=== PATIENT | female | born 1980 | race Caucasian/White ===

== ENCOUNTER 2021-11-01 12:04 | Outpatient (CLI) | payer OTHER, SELFPAY ==
[2021-11-01 19:35] LABS: Chlamydia DNA Amplified* NOT DETECTED (No Detected); GC DNA Amplified* NOT DETECTED (No Detected)
== END 2021-11-01 12:05 | disposition home or self-care (01) ==
LOC: NFLDREF 12:05
PROVIDERS: PCP Physician Assistant Medical; Visit Provider Physician Assistant
DX: N89.8 Other specified noninflammatory disorders of vagina (principal)
CPT/HCPCS: 87491; 87591

== ENCOUNTER 2022-01-03 11:37 | Outpatient (CLI) | payer OTHER, SELFPAY | END 2022-01-03 11:38 | disposition home or self-care (01) | PROVIDERS: PCP Physician Assistant Medical; Visit Provider Registered Nurse | DX: N89.8 Other specified noninflammatory disorders of vagina (principal) | CPT/HCPCS: 87102; 87106 ==

== ENCOUNTER 2022-02-26 16:01 | Outpatient (CLI) | payer OTHER, SELFPAY ==
--- NOTE | 2022-02-26 16:15 | CRLHL7_ITS ---
For Patients: As a result of the Century Cures Act, medical imaging exams and procedure reports are released immediately into your electronic medical record. You may view this report before your referring provider. If you have questions, please contact your health care provider. BILATERAL SCREENING MAMMOGRAM WITH COMPUTER-AIDED DETECTION AND TOMOSYNTHESIS TECHNIQUE: CC and MLO views were obtained. These mammographic images have been obtained using full-field digital technique. These mammographic images were interpreted with the benefit of computer-aided detection. Breast Tomosynthesis was used in this interpretation. COMPARISON FILM: 01/31/21. FINDINGS: There are scattered areas of fibroglandular density IMPRESSION: There is no radiographic evidence for malignancy. ASSESSMENT: BI-RADS Category 2: Benign RECOMMENDATION: Routine screening mammogram in 1 year. A lay language report of this examination will be provided to the patient. Oscar Schuler M.D. Diagnostic Radiologist [email or web address] Transcribed: 7:41 p.m. GORODN/Dictated by: Oscar Schuler MD @ 02/27/2022 10:11:00 AM (Electronically Signed)
== END 2022-02-26 16:02 | disposition home or self-care (01) ==
LOC: MAMMO 16:02
PROVIDERS: PCP Physician Assistant Medical; Visit Provider Obstetrics & Gynecology
DX: Z12.31 Encounter for screening mammogram for malignant neoplasm of breast (principal)
CPT/HCPCS: 77063; 77067

== ENCOUNTER 2022-04-16 15:27 | Outpatient (CLI) | payer OTHER, SELFPAY ==
--- NOTE | 2022-04-16 15:30 | MR_ITS ---
Patient: RESHMA DELEON Facility:?[facility] Patient ID:?[id number] Site Patient ID:?[id number]. Site :?1980 Study:?MRI-Head W/ and W/O Cont W/WO 15 CC DOTAREM IAC'S-04/16/2022 5:26:35 PM Ordering Physician:?Angelica Aragon Final Report: DATE: 04/16/2022. CLINICAL HISTORY: Vertigo. TECHNIQUE: Multi-sequence, multiplanar MRI examination of the brain was performed. In addition, multi-sequence, multiplanar examination, including high-resolution imaging, through the IAC`s was performed. Contrast: 15mL of Dotarem was administered intravenously. COMPARISON: None available. FINDINGS: There is no restricted diffusion in the brain to indicate the presence of acute ischemia. No extra-axial collection, mass effect, or midline shift. There are several scattered foci of T2 prolongation within the white matter of both hemispheres, most notably within the frontal lobes, nonspecific. Parenchymal volume is within normal limits for patient age. Ventricles are normal in size and morphology. There is no pathologic intracranial enhancement. The posterior fossa is unremarkable. No evidence of pathologic mass within the cerebellopontine angle cisterns. The internal auditory canals are within normal limits and without evidence of pathologic enhancement. The inner ear structures are within normal limits. The orbits are unremarkable. Mild mucosal thickening of the ethmoid air cells. The mastoid air cells are clear. The calvarium is unremarkable. IMPRESSION: 1. No acute intracranial abnormality. 2. No evidence of pathology involving the cerebellopontine angle cisterns, internal auditory canals, or inner ear structures. 3. Several scattered T2 hyperintense foci within the white matter of both hemispheres, most notably within the frontal lobes. This is nonspecific but may reflect sequela of migraine headaches versus early onset mild chronic small vessel ischemia. Dictated by Ariel Edge MD @ 04/16/2022 6:04:52 PM Signed by:?Ariel Edge MD @04/16/2022 6:04:52 PM (Electronic Signature)
== END 2022-04-16 15:28 | disposition home or self-care (01) ==
LOC: MRI 15:28
PROVIDERS: PCP Physician Assistant Medical; Visit Provider Otolaryngology
DX: R42 Dizziness and giddiness (principal)
CPT/HCPCS: 70553; A9575

== ENCOUNTER 2022-04-30 17:24 | Emergency (ER) | payer OTHER, SELFPAY ==
[2022-04-30] VITALS (9 sets, daily range): BP systolic 133–141; BP diastolic 80–88; PULSE 68–88; RESP 18–20; TEMP 36.1–36.3; O2SAT 95–97; BMI 31.7
--- NOTE | 2022-04-30 18:11 | CRLHL7_ITS ---
For Patients: As a result of the Century Cures Act, medical imaging exams and procedure reports are released immediately into your electronic medical record. You may view this report before your referring provider. If you have questions, please contact your health care provider. INDICATION: right sided chest pain TECHNIQUE: Chest 2 views. COMPARISON: 10/02/20 FINDINGS: Cardiovascular and mediastinum: Heart size and vasculature are normal in caliber and appearance. Mediastinum is within normal limits. Lungs and pleural spaces: Lungs are clear. No sign of infiltrate or mass. No sign of pleural effusion. No pneumothorax. Bones and soft tissues: No significant findings. IMPRESSION: Unremarkable chest. Dictated by: Oscar Chance MD @ 04/30/2022 19:30:27 (Electronically Signed)
--- NOTE | 2022-04-30 18:11 | CRLHL7_ITS ---
For Patients: As a result of the Century Cures Act, medical imaging exams and procedure reports are released immediately into your electronic medical record. You may view this report before your referring provider. If you have questions, please contact your health care provider. Indication: Upper right quadrant abdominal pain. Technique: Abdomen 4 view. Comparison: None. Findings/Impression: Bowel: Nonobstructive bowel gas pattern. Normal stool burden. Soft tissues: No evidence of free air. Cholecystectomy clips. Bones: Lumbar fusion hardware. No acute findings. Enthesopathic changes about the right greater trochanter. Dictated by Manjit Hammond MD @ 04/30/2022 7:41:25 PM (Electronically Signed)
--- NOTE | 2022-04-30 18:40 | ED.ABDPAIN ---
HPI - Abdominal Pain General Date Seen: 04/30/22 Chief Complaint: Abdominal Pain Stated Complaint: Abdominal Pain, upper right quad Time Seen by Provider: 04/30/22 17:26 Source: patient Mode of arrival: ambulatory Limitations: no limitations History of Present Illness HPI narrative: Patient is a 41-year-old female who presents here with a 2-3 day history of right upper quadrant pain, worse when she takes a deep breath in, coughs twists or turns, or pushes over her lower right chest region. She says that it came on while she was really doing nothing, but definitely worse when she is up moving around. She does not know endorse any coughing, shortness of breath, hemoptysis, previous history of PEs or blood caught it is. She actually was going to go to on oral surgery appointment/dentistry and then canceled that went to an urgent care before this and they said they could help her in she came here. She has a history of a previous cholecystectomy and a Ronni-en-Y gastric bypass. Recent workup at [facility] for an abnormal stress test showed really clear coronary arteries with only 25% stenosis. MD elicited complaint: abdominal pain and flank pain Pertinent past history: none Onset (ago): day(s) Pain Consistency: constant and intermittent Location: RUQ Severity: moderate Radiation: none Migration to: no migration Exacerbating factors: nothing Relieving factors: nothing Associated symptoms: denies other symptoms Related Data Patient : No Home Medications Medication Instructions Recorded Confirmed acetaminophen 325 mg tablet mg PO .Once as needed PRN 11/01/21 03/13/22 aspirin 81 mg tablet,delayed mg PO 11/01/21 03/13/22 release diltiazem HCl 180 mg mg PO DAILY 11/01/21 03/13/22 capsule,extended release 24 hr ondansetron HCl 4 mg tablet mg PO PRN 11/01/21 03/13/22 oxycodone 10 mg tablet mg PO PRN 11/01/21 03/13/22 sennosides 8.6 mg tablet 8.6 mg PO 11/01/21 03/13/22 valacyclovir 500 mg tablet mg PO BID 11/01/21 03/13/22 Previous Rx's Medication Instructions Recorded pantoprazole 40 mg tablet,delayed 40 mg PO QAM #90 tabs 11/29/21 release fluoxetine 40 mg capsule See Rx Instructions .Route 02/21/22 .COMPLEX #90 caps hydroxyzine pamoate 25 mg capsule See Rx Instructions .Route 02/27/22 .COMPLEX #90 caps fluticasone propionate 50 2 spray intranasal QDAY 30 days 03/13/22 mcg/actuation nasal #16 grams spray,suspension bupropion HCl 150 mg 24 hr tablet, See Rx Instructions .Route 04/24/22 extended release .COMPLEX #90 tabs Allergies Allergy/AdvReac Type Severity Reaction Status Date / Time albuterol Allergy Severe Anaphylaxis Verified 03/13/22 14:12 tramadol Allergy Intermediate Rash Verified 03/13/22 14:12 Review of Systems Status of ROS Reports: 10 or more systems reviewed and unremarkable except as noted in History and below PFSH PFS Medical History Family history of breast cancer History of abnormal cervical Papanicolaou smear History of anemia History of atrial flutter History of chlamydia infection History of genital warts History of herniated intervertebral disc History of herpes genitalis History of hypertension History of peptic ulcer Surgical History H/O microdiscectomy History of carpal tunnel release (2007) History of cholecystectomy History of esophagogastroduodenoscopy (EGD) History of loop electrical excision procedure (LEEP) (1998) History of microdiscectomy (2005) History of Ronni-en-Y gastric bypass (2003) History of spinal fusion (01/15/11) History of spinal surgery (09/21/09) History of tonsillectomy (2010) Status post dilation and curettage (04/09/21) Status post excision of lipoma (2017) Family History Mother Colon cancer Coronary artery disease Family/Other Colon cancer Paternal Grandfather Coronary artery disease Other Breast cancer Social History Narrative: does not use illicit drugs history of abuse lactose intolerance nonsmoker Smoking Status: Never smoker Do you use any of these nicotine containing products: None Second hand tobacco smoke exposure: No How often do you have a drink containing alcohol: never AUDIT-C Alcohol total score: 0 Non-prescribed substance use: marijuana (any form) Non-prescribed substance use details: medical cannibus service: No Exam Narrative: Exam Narrative: Patient is seen in room 1, she presents in no apparent distress speaking to me normally, but holding her right-sided chest region. And right upper quadrant asking me what is under there. Pupils equal round reactive to light there is no scleral icterus redness TMs are normal oropharynx normal neck is supple chest is clear bilaterally, with maybe a little bit of splinting on the right side when she takes a deep breath in heart sounds are normal abdomen is soft, even with deep palpation she seems to localize her pain over the right side of her chest. Bowel sounds are normal there is no organomegaly scars from previous Ronni-en-Y are noted. No CVA pain Const: Vital Signs, click to edit/add: Vital Signs - 24 hr 04/30/22 17:41 04/30/22 18:11 04/30/22 18:07 Temperature 97.4 F L 97 F L Pulse Rate 78 Pulse Rate [Pulse Oximeter] 79 Respiratory Rate 18 20 Blood Pressure 141/88 H Blood Pressure [Ri ght Upper Arm] 133/80 141/88 H Pulse Oximetry 97 97 97 Oxygen Delivery Me thod Room Air Room Air 04/30/22 18:08 04/30/22 18:15 04/30/22 18:30 Temperature Pulse Rate 83 88 72 Pulse Rate [Pulse Oximeter] Respiratory Rate Blood Pressure Blood Pressure [Ri ght Upper Arm] Pulse Oximetry 95 97 96 Oxygen Delivery Me thod 04/30/22 18:38 04/30/22 18:45 04/30/22 19:00 Temperature Pulse Rate 69 68 68 Pulse Rate [Pulse Oximeter] Respiratory Rate Blood Pressure 138/83 Blood Pressure [Ri ght Upper Arm] Pulse Oximetry 97 95 97 Oxygen Delivery Me thod Documenting provider has reviewed patient's vital signs: yes Course Course Hospital Course: Explained to the patient that her workup showed no evidence of any acute problems, her D-dimer is normal her laboratory tests were normal, there is no significant liver elevation, or pancreatic enzyme elevation, her x-ray showed nonspecific gas pattern along with the chest x-ray which is normal, she thought that I was a little upset with her initially, explained to her that I was not upset, I did offer her pain medication which she accepted, I would recommend that she follow up with her primary care physician, for further assessment, I do not think this is cardiac ischemia, as she has had recent angiogram that was normal, I do not think that with a normal D-dimer, and absence of tachycardia, that this is likely a blood clot, Vital Signs Vital signs: Initial Vital Signs Temperature 97.4 F L 04/30/22 17:41 Temperature Source Temporal Artery Scan 04/30/22 17:41 Pulse Rate 79 04/30/22 17:41 Respiratory Rate 18 04/30/22 17:41 Blood Pressure 133/80 04/30/22 17:41 Blood Pressure Mean 97 04/30/22 17:41 Blood Pressure Position Sitting 04/30/22 17:41 Pulse Oximetry 97 04/30/22 17:41 Oxygen Delivery Method 04/30/22 17:41 Vital Signs Temperature 97.4 F L 04/30/22 17:41 Pulse Rate 79 04/30/22 17:41 Respiratory Rate 18 04/30/22 17:41 Blood Pressure 133/80 04/30/22 17:41 Pulse Oximetry 97 04/30/22 17:41 Oxygen Delivery Method 04/30/22 17:41 Temperature 97 F L 04/30/22 18:11 Pulse Rate 68 04/30/22 19:00 Respiratory Rate 20 04/30/22 18:11 Blood Pressure 138/83 04/30/22 18:38 Pulse Oximetry 97 04/30/22 19:00 Oxygen Delivery Method 04/30/22 18:11 MDM - Abdominal Pain MDM Narrative Medical decision making narrative: During the evaluation of this patient I considered multiple differential diagnosis is. The life-threatening differential diagnosis include coronary disease/NH, pulmonary embolism, pneumothorax, pneumonia, and aortic dissection. Other differential diagnosis included but were not limited to pericarditis, myocarditis, chest wall pain, GERD, esophageal rupture, rib fracture contusion, pleurisy, as well as other etiologies. Medical Records Attestation: I reviewed the patient's medical records. Lab Data Attestation: I reviewed the patient's lab results. Labs: Lab Results 04/30/22 04/30/22 04/30/22 Range/Units 18:40 18:40 18:40 WBC 6.63 (4.50-11.00) K/uL RBC 4.00 (4.00-5.20) m/uL Hgb 11.5 L (12.0-16.0) gm/dL Hct 34.6 (33.0-51.0) % MCV 87 (80-100) fL MCH 29 (26-34) pg MCHC 33 (32-36) gm/dL RDW Coeff of Dia 15.4 (11.5-15.5) % Plt Count 223 (140-440) K/uL Neut % (Auto) 70.2 (42.0-72.0) % Lymph % (Auto) 20.5 (20-44) % [place] % (Auto) 7.4 (0.0-11.0) % Eos % (Auto) 1.1 (0.0-7.0) % Baso % (Auto) 0.6 (0.0-3.0) % Neut # (Auto) 4.66 (1.7-7.0) K/uL Lymph # (Auto) 1.36 (0.90-2.90) K/uL [place] # (Auto) 0.50 (0.00-0.90) K/UL Eos # (Auto) 0.07 (0.00-0.50) K/uL Baso # (Auto) 0.04 (0.00-0.30) K/uL D-Dimer Quant (PE/DVT) < 0.27 (0.00-0.50) ug/ml Sodium 140 (135-149) mmol/L Potassium 4.1 (3.6-5.1) mmol/L Chloride 110 (96-114) mmol/L Carbon Dioxide 26 (20-32) mmol/L BUN 12 (5-24) mg/dL Creatinine 0.7 (0.5-1.5) mg/dL Estimated Creat Clear 124.62 Estimated GFR 111 ml/min Glucose 87 (60-115) mg/dL Calcium 8.7 (8.4-10.6) mg/dL Total Bilirubin 0.3 (0.1-1.5) mg/dL Direct Bilirubin 0.3 (0.0-0.5) mg/dL AST 35 (12-35) U/L ALT 36 H (4-35) U/L Alkaline Phosphatase 82 (40-150) U/L C-Reactive Protein < 0.5 L (0.5-1.0) mg/dL Total Protein 6.7 (6.0-8.3) g/dL Albumin 4.2 (3.3-5.0) g/dL Amylase 47 (18-89) U/L Lipase 105 (23-300) U/L Urine Color (Yellow) Urine Appearance (Clear) Urine pH (5.0-8.5) Ur Specific [place] (1.000-1.030) Urine Protein (Negative) Urine Glucose (UA) (Negative) Urine Ketones (Negative) Urine Blood (Negative) Urine Nitrite (Negative) Urine Bilirubin (Negative) Urine Urobilinogen (0.2-1.0) Ur Leukocyte Esterase (Negative) Urine RBC (0-2) Urine WBC (0-5) Ur Squamous Epith Cells (None-Few) Urine Bacteria (None) 04/30/22 Range/Units Unknown WBC (4.50-11.00) K/uL RBC (4.00-5.20) m/uL Hgb (12.0-16.0) gm/dL Hct (33.0-51.0) % MCV (80-100) fL MCH (26-34) pg MCHC (32-36) gm/dL RDW Coeff of Dia (11.5-15.5) % Plt Count (140-440) K/uL Neut % (Auto) (42.0-72.0) % Lymph % (Auto) (20-44) % [place] % (Auto) (0.0-11.0) % Eos % (Auto) (0.0-7.0) % Baso % (Auto) (0.0-3.0) % Neut # (Auto) (1.7-7.0) K/uL Lymph # (Auto) (0.90-2.90) K/uL [place] # (Auto) (0.00-0.90) K/UL Eos # (Auto) (0.00-0.50) K/uL Baso # (Auto) (0.00-0.30) K/uL D-Dimer Quant (PE/DVT) (0.00-0.50) ug/ml Sodium (135-149) mmol/L Potassium (3.6-5.1) mmol/L Chloride (96-114) mmol/L Carbon Dioxide (20-32) mmol/L BUN (5-24) mg/dL Creatinine (0.5-1.5) mg/dL Estimated Creat Clear Estimated GFR ml/min Glucose (60-115) mg/dL Calcium (8.4-10.6) mg/dL Total Bilirubin (0.1-1.5) mg/dL Direct Bilirubin (0.0-0.5) mg/dL AST (12-35) U/L ALT (4-35) U/L Alkaline Phosphatase (40-150) U/L C-Reactive Protein (0.5-1.0) mg/dL Total Protein (6.0-8.3) g/dL Albumin (3.3-5.0) g/dL Amylase (18-89) U/L Lipase (23-300) U/L Urine Color Yellow (Yellow) Urine Appearance Clear (Clear) Urine pH 7.0 (5.0-8.5) Ur Specific [place] 1.010 (1.000-1.030) Urine Protein Negative (Negative) Urine Glucose (UA) Negative (Negative) Urine Ketones Negative (Negative) Urine Blood Negative (Negative) Urine Nitrite Negative (Negative) Urine Bilirubin Negative (Negative) Urine Urobilinogen 0.2 (0.2-1.0) Ur Leukocyte Esterase Negative (Negative) Urine RBC 0-2 (0-2) Urine WBC 0-2 (0-5) Ur Squamous Epith Cells None (None-Few) Urine Bacteria None (None) Imaging Data Chest x-ray: Radiologist's impression: Patient: [facility] Facility:?[facility] Patient ID:?[id number] Site Patient ID:?[id number]. Site :?1980 Study:?XRay Abdomen -04/30/2022 7:18:45 PM Ordering Physician:?Ivania Porter Final Report: Indication: Upper right quadrant abdominal pain. Technique: Abdomen 4 view. Comparison: None. Findings/Impression: Bowel: Nonobstructive bowel gas pattern. Normal stool burden. Soft tissues: No evidence of free air. Cholecystectomy clips. Bones: Lumbar fusion hardware. No acute findings. Enthesopathic changes about the right greater trochanter. Dictated by Manjit Hammond MD @ 04/30/2022 7:41:25 PM (Electronic Signature) Patient: RESHMA DELEON Facility:?[facility] Patient ID:?[id number] Site Patient ID:?[id number]. Site :?1980 Study:?XRay Chest -04/30/2022 7:19:35 PM Ordering Physician:Jem Porter Final Report: INDICATION: right sided chest pain TECHNIQUE: Chest 2 views. COMPARISON: 10/02/20 FINDINGS: Cardiovascular and mediastinum: Heart size and vasculature are normal in caliber and appearance. Mediastinum is within normal limits. Lungs and pleural spaces: Lungs are clear. No sign of infiltrate or mass. No sign of pleural effusion. No pneumothorax. Bones and soft tissues: No significant findings. IMPRESSION: Unremarkable chest. Dictated by: Oscar Chance MD @ 04/30/2022 19:30:27 (Electronic Signature) Discharge Plan Discharge Clinical Impression: Chest pain Patient Disposition: Home, Self-Care Condition: Stable Instructions: Chest Pain (DC) Additional Instructions: As I discussed with you all your laboratory tests were all normal, chest x-ray, blood test, urine, that all looked within normal limits, the test for blood clot was also normal. I would recommend that she follow up with her regular physician, and I would treat this as a muscle strain. Sometimes the muscles involved with the chest can really be an issue for some time as we cannot really stop using these as we have to breathe 15 times a minute. Increasing chest pain shortness of breath passing out or other issues I would recommend to come back and be seen, or seen by your regular physician. Continue her other medications as directed. Prescriptions: No Action ondansetron HCl 4 mg tablet PO PRN valacyclovir 500 mg tablet PO BID sennosides 8.6 mg tablet 8.6 mg PO acetaminophen 325 mg tablet PO .Once as needed PRN Rx Instructions: NO MORE THAN 4000 MG/DAY diltiazem HCl 180 mg capsule,extended release 24hr PO DAILY aspirin 81 mg tablet,delayed release (DR/EC) PO oxycodone 10 mg tablet PO PRN fluticasone propionate 50 mcg/actuation spray,suspension 2 spray intranasal QDAY 30 Days Qty: 16 11RF Rx Instructions: administer into each nostril pantoprazole 40 mg tablet,delayed release (DR/EC) 40 mg PO QAM Qty: 90 3RF fluoxetine 40 mg capsule See Rx Instructions .ROUTE .COMPLEX Qty: 90 0RF Dose Instruction: TAKE ONE CAPSULE BY MOUTH EVERY DAY (DUE FOR FOLLOWUP FOR REFILLS) Rx Instructions: TAKE ONE CAPSULE BY MOUTH EVERY DAY (DUE FOR FOLLOWUP FOR REFILLS) hydroxyzine pamoate 25 mg capsule See Rx Instructions .ROUTE .COMPLEX Qty: 90 0RF Dose Instruction: TAKE ONE CAPSULE BY MOUTH EVERY 6 TO 8 HOURS Rx Instructions: TAKE ONE CAPSULE BY MOUTH EVERY 6 TO 8 HOURS bupropion HCl 150 mg tablet extended release 24 hr See Rx Instructions .ROUTE .COMPLEX Qty: 90 1RF Dose Instruction: TAKE 1 TABLET BY MOUTH DAILY Rx Instructions: TAKE 1 TABLET BY MOUTH DAILY Follow Up/Referrals: Blake Dalal PA-C [Primary Care Provider] - Stand Alone Forms: [employer] Info Instructions
[2022-04-30] MEDS: 0.9 % SODIUM CHLORIDE 1000 ml 1,000 ML IV (18:43)
[2022-04-30 18:47] LABS: Basophils Absolute Auto 0.04 K/uL (0.00-0.30); Basophils Percent Auto 0.6 % (0.0-3.0); Eosinophils Absolute Auto 0.07 K/uL (0.00-0.50); Eosinophils Percent Auto 1.1 % (0.0-7.0); Hematocrit 34.6 % (33.0-51.0); Hemoglobin* 11.5 gm/dL (12.0-16.0); Immature Granulocytes Abs Auto 0.01 K/uL (0.00-0.30); Immature Granulocytes Pct Auto 0.2 %; Lymphocytes Absolute Auto 1.36 K/uL (0.90-2.90); Lymphocytes Percent Auto 20.5 % (20-44); Mean Corpuscular HGB Conc 33 gm/dL (32-36); Mean Corpuscular Hemoglobin 29 pg (26-34); Mean Corpuscular Volume 87 fL (80-100); Monocytes Percent Auto 7.4 % (0.0-11.0); Neutrophils Absolute Auto 4.66 K/uL (1.7-7.0); Neutrophils Percent Auto 70.2 % (42.0-72.0); Platelet Count* 223 K/uL (140-440); RDW Coefficient of Variation % 15.4 % (11.5-15.5); White Blood Count* 6.63 K/uL (4.50-11.00)
[2022-04-30 18:53] LABS: Slide Review Reflex No
[2022-04-30 19:00] LABS: Albumin* 4.2 g/dL (3.3-5.0); Chloride* 110 mmol/L (96-114)
[2022-04-30 19:01] LABS: Potassium* 4.1 mmol/L (3.6-5.1); Sodium* 140 mmol/L (135-149)
[2022-04-30 19:03] LABS: Amylase* 47 U/L (18-89); Bilirubin Direct* 0.3 mg/dL (0.0-0.5); Bilirubin Total* 0.3 mg/dL (0.1-1.5); Carbon Dioxide* 26 mmol/L (20-32); Creatinine* 0.7 mg/dL (0.5-1.5); Est. Creatinine Clearance* 124.62; Estimated Glomerular Filt Rate 111 ml/min; Total Protein* 6.7 g/dL (6.0-8.3)
[2022-04-30 19:04] LABS: Alanine Aminotransferase* 36 U/L (4-35); Alkaline Phosphatase* 82 U/L (40-150); Aspartate Amino Transferase* 35 U/L (12-35); Blood Urea Nitrogen* 12 mg/dL (5-24); Calcium* 8.7 mg/dL (8.4-10.6); Glucose* 87 mg/dL (60-115); Lipase* 105 U/L (23-300)
[2022-04-30 19:06] LABS: C Reactive Protein* < 0.5 mg/dL (0.5-1.0)
[2022-04-30 19:07] LABS: D Dimer Quantitative* < 0.27 ug/ml (0.00-0.50)
[2022-04-30 19:43] LABS: Appearance Urine Clear (Clear); Bilirubin Urine Negative (Negative); Blood Urine Negative (Negative); Color Urine Yellow (Yellow); Glucose Urine Negative (Negative); Ketones Urine Negative (Negative); Leukocyte Esterase Urine Negative (Negative); Nitrite Urine Negative (Negative); Protein Urine Negative (Negative); Urobilinogen Urine 0.2 (0.2-1.0)
[2022-04-30 19:53] LABS: RBC Urine 0-2 (0-2); WBC Urine 0-2 (0-5)
== END 2022-04-30 20:10 | disposition home or self-care (01) ==
PROVIDERS: Emergency Provider Family Medicine; PCP Physician Assistant Medical
DX: R07.9 Chest pain, unspecified (principal)
CPT/HCPCS: 36415; 71046; 74019; 80048; 80076; 81001; 82150; 83690; 85025; 85379; 86140; 99284; J7030

== ENCOUNTER 2022-07-15 14:04 | Outpatient (CLI) | payer OTHER, SELFPAY ==
[2022-07-15 22:06] LABS: Basophils Absolute Auto 0.04 K/uL (0.00-0.30); Basophils Percent Auto 0.6 % (0.0-3.0); Eosinophils Absolute Auto 0.09 K/uL (0.00-0.50); Eosinophils Percent Auto 1.4 % (0.0-7.0); Hematocrit 38.4 % (33.0-51.0); Hemoglobin* 12.4 gm/dL (12.0-16.0); Lymphocytes Absolute Auto 1.35 K/uL (0.90-2.90); Lymphocytes Percent Auto 20.8 % (20-44); Mean Corpuscular HGB Conc 32 gm/dL (32-36); Mean Corpuscular Hemoglobin 28 pg (26-34); Mean Corpuscular Volume 86 fL (80-100); Monocytes Percent Auto 5.4 % (0.0-11.0); Neutrophils Absolute Auto 4.66 K/uL (1.7-7.0); Neutrophils Percent Auto 71.8 % (42.0-72.0); Platelet Count* 193 K/uL (140-440); RDW Coefficient of Variation % 15.6 % (11.5-15.5); Red Blood Count 4.46 m/uL (4.00-5.20); White Blood Count* 6.49 K/uL (4.50-11.00)
[2022-07-15 22:09] LABS: Slide Review Reflex No
[2022-07-15 22:17] LABS: Albumin* 3.9 g/dL (3.3-5.0); Chloride* 106 mmol/L (96-114)
[2022-07-15 22:18] LABS: Potassium* 4.1 mmol/L (3.6-5.1); Sodium* 138 mmol/L (135-149)
[2022-07-15 22:20] LABS: Creatinine* 0.7 mg/dL (0.5-1.5); Estimated Glomerular Filt Rate 111 ml/min
[2022-07-15 22:21] LABS: Alanine Aminotransferase* 76 U/L (4-35); Alkaline Phosphatase* 101 U/L (40-150); Aspartate Amino Transferase* 56 U/L (12-35); Bilirubin Total* 0.4 mg/dL (0.1-1.5); Blood Urea Nitrogen* 12 mg/dL (5-24); Calcium* 9.1 mg/dL (8.4-10.6); Carbon Dioxide* 27 mmol/L (20-32); Glucose* 93 mg/dL (60-115); Lipase* 362 U/L (23-300); Total Protein* 6.6 g/dL (6.0-8.3)
[2022-07-15 22:24] LABS: C Reactive Protein* 1.2 mg/dL (0.5-1.0)
[2022-07-15 22:38] LABS: Vitamin D 25 Hydroxy* 30 ng/mL (30-80)
[2022-07-15 22:52] LABS: TSH With Reflex to FT4* 0.696 uIU/mL (0.270-4.200)
[2022-07-15 22:54] LABS: Ferritin* 17.5 ng/mL (6.24-137.0)
[2022-07-15 23:05] LABS: Vitamin B12* 841 pg/mL (243-894)
== END 2022-07-15 14:05 | disposition home or self-care (01) ==
LOC: NFLDREF 14:07
PROVIDERS: PCP Physician Assistant Medical; Visit Provider Family Medicine
DX: R53.83 Other fatigue (principal); R10.9 Unspecified abdominal pain; Z98.84 Bariatric surgery status
CPT/HCPCS: 80053; 82306; 82607; 82728; 83690; 84443; 85025; 86140

== ENCOUNTER 2022-10-18 14:05 | Outpatient (CLI) | payer OTHER, SELFPAY | END 2022-10-18 14:06 | disposition home or self-care (01) | PROVIDERS: PCP Physician Assistant Medical; Visit Provider Family Medicine | DX: M25.50 Pain in unspecified joint (principal) | CPT/HCPCS: 86039; 86140; 86200; 86431 ==

== ENCOUNTER 2023-03-19 09:33 | Outpatient (CLI) | payer OTHER, SELFPAY | END 2023-03-19 09:34 | disposition home or self-care (01) | LOC: NFLDREF 09:34 | PROVIDERS: PCP Physician Assistant Medical; Visit Provider Internal Medicine | DX: D64.9 Anemia, unspecified (principal); Q87.40 Marfan syndrome, unspecified; G89.29 Other chronic pain | CPT/HCPCS: 81408; 81479 ==

== ENCOUNTER 2023-05-12 15:50 | Outpatient (CLI) | payer OTHER, SELFPAY | END 2023-05-12 15:51 | disposition home or self-care (01) | PROVIDERS: PCP Internal Medicine; Visit Provider Internal Medicine | DX: R10.9 Unspecified abdominal pain (principal) | CPT/HCPCS: 80053; 82728; 83540; 83550; 85045; 85610 ==

== ENCOUNTER 2023-05-19 15:32 | Outpatient (CLI) | payer OTHER, SELFPAY ==
--- NOTE | 2023-05-19 16:00 | CRLHL7_ITS ---
For Patients: As a result of the Century Cures Act, medical imaging exams and procedure reports are released immediately into your electronic medical record. You may view this report before your referring provider. If you have questions, please contact your health care provider. INDICATION: Right abdominal/flank pain. Nausea and vomiting. TECHNIQUE: Volumetric helical scanning of the abdomen and pelvis was performed with 100 cc of Isovue 370 contrast material IV. Coronal and sagittal reconstructions were obtained. COMPARISON: None. FINDINGS: There is no evidence of bowel obstruction or inflammation. A normal appendix is noted. Postop changes of gastric bypass are demonstrated. The liver is normal in size, shape and attenuation. Postop changes of cholecystectomy are noted. The bile ducts are within normal limits. The spleen, adrenal glands and pancreas are negative. The kidneys are unremarkable. No lymphadenopathy is evident. No free fluid is demonstrated. The uterus and ovaries are unremarkable. Postop changes of L4-S1 posterior fusion are noted. A spiculated 1.5 cm opacity is demonstrated in the posterior right lower lobe base. The lung bases are otherwise unremarkable. The heart size is normal. IMPRESSION: 1. Etiology of right abdominal/flank pain not evident. 2. Post gastric bypass, cholecystectomy and L4-S1 posterior fusion. 3. Spiculated 1.5 cm posterior right lower lobe base opacity. A three-month follow up chest CT is suggested. Please note that all CT scans at this facility use dose modulation, iterative reconstruction, and/or weight-based dosing when appropriate to reduce radiation dose to as low as reasonably achievable. Dictated by Zen Rayo MD @ 05/20/2023 9:29:26 AM (Electronically Signed)
== END 2023-05-19 15:33 | disposition home or self-care (01) ==
LOC: CT 15:33
PROVIDERS: PCP Internal Medicine; Visit Provider Internal Medicine
DX: R10.9 Unspecified abdominal pain (principal); R11.2 Nausea with vomiting, unspecified
CPT/HCPCS: 74177; Q9967

== ENCOUNTER 2023-06-07 21:31 | Emergency (ER) | payer OTHER, SELFPAY ==
[2023-06-07 21:37] VITALS: BP 135/79; PULSE 89; RESP 20; TEMP 37.1; O2SAT 99; BMI 29.7
--- NOTE | 2023-06-07 21:55 | ED.GENADULT ---
HPI - General Adult General Chief complaint: Head Injury/Pain Stated complaint: pressure and head pain. Previous fall last week Time Seen by Provider: 06/07/23 21:52 History of Present Illness HPI narrative: CC: Head Pain pt. fell hitting back of her head about 10 days ago. c/o lightheadedness , nausea. has mri scheduled on . needs something for pain. 42-year-old woman presenting to the emergency department with concern of headache. Underlying history of low back surgery with some degree of fusion. She has also had micro diskectomies of the cervical spine. Is managed for chronic pain and did take an oxycodone this evening which just did not help her headache at all. She has also used ice packs. She is less here for the pain but more worried about what it might represent; worried about a head bleed in particular I believe. The other day she says she was vacuuming in her son's room and suddenly tipping to her left. She describes an injury episode about 10 days ago where with standing at the door of her car slipped on the ice falling back striking the, as demonstrated, occipital insertion area of the neck on the occipital prominence of her head. There was no loss of consciousness. Since that time though has had increased headache described as a pressure particularly over the left side of her head settling around her left restorationism/periorbital area. Is having trouble sleeping. She has not been having new sinus problems. She is denying radicular symptoms beyond what is described above. No weakness. She does have some nausea and has vomited but attributes this to her underlying history of gastroparesis. Did see pain care provider and then primary care and is apparently pending an MRI of head and as described to me thoracic and cervical spine? Did have COVID with sinus symptoms around 3 weeks ago. I am able to locate x-ray that was done recently of the cervical spine. Does show some decreased lordotic curvature in osteoarthritic changes. As I am initially engaging in conversation/interview she does want to clarify that she is not here for pain meds and is bothered by the cold shoulder she feels she has received to this point. Related Data Home Medications Medication Instructions Recorded Confirmed aspirin 81 mg tablet,delayed 81 mg PO QDAY 07/15/22 06/07/23 release diltiazem HCl 180 mg 180 mg PO DAILY 07/15/22 06/07/23 capsule,extended release 24 hr ondansetron HCl 4 mg tablet 4 mg PO DAILY PRN 07/15/22 06/07/23 oxycodone 10 mg tablet 10 mg PO QID PRN 07/15/22 06/07/23 sennosides 8.6 mg tablet 8.6 mg PO QDAY 07/15/22 06/07/23 valacyclovir 500 mg tablet 500 mg PO BID PRN 07/15/22 06/07/23 Previous Rx's Medication Instructions Recorded pantoprazole 40 mg tablet,delayed 40 mg PO QAM #90 tabs 11/20/22 release cetirizine 10 mg tablet (Zyrtec) 10 mg PO BID #60 tabs 12/04/22 escitalopram oxalate 20 mg tablet 20 mg PO QDAY #90 tabs 04/29/23 trazodone 100 mg tablet 100 mg PO QHS #30 tabs 05/12/23 Allergies Allergy/AdvReac Type Severity Reaction Status Date / Time albuterol Allergy Severe Anaphylaxis Verified 06/07/23 21:40 tramadol Allergy Intermediate Rash Verified 06/07/23 21:40 Review of Systems Status of ROS: Reports: 6 or more systems reviewed and unremarkable except as noted in History and below [facility] Medical History Lung nodule ?R91.1 - Solitary pulmonary nodule (ICD-10) Abdominal pain ?R10.9 - Unspecified abdominal pain (ICD-10) Insomnia ?G47.00 - Insomnia, unspecified (ICD-10) Depression ?F32.A - Depression, unspecified (ICD-10) History of self injurious behaviour PTSD (post-traumatic stress disorder) ?F43.10 - Post-traumatic stress disorder, unspecified (ICD-10) Abnormal stress echo ?R94.39 - Abnormal result of other cardiovascular function study (ICD-10) Gastroparesis ?K31.84 - Gastroparesis (ICD-10) Atrial flutter ?I48.92 - Unspecified atrial flutter (ICD-10) 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) ?D07.1 - Carcinoma in situ of vulva (ICD-10) 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) ?R76.8 - Other specified abnormal immunological findings in serum (ICD-10) Peroneal neuropathy ?G57.30 - Lesion of lateral popliteal nerve, unspecified lower limb (ICD-10) Patent foramen ovale ?Q21.1 - Atrial septal defect (ICD-10) History of herpes genitalis ?Z86.19 - Personal history of other infectious and parasitic diseases (ICD-10) History of herniated intervertebral disc ?Z87.39 - Personal history of other diseases of the musculoskeletal system and connective tissue (ICD-10) History of genital warts ?Z86.19 - Personal history of other infectious and parasitic diseases (ICD-10) History of chlamydia infection ?Z86.19 - Personal history of other infectious and parasitic diseases (ICD-10) History of abnormal cervical Papanicolaou smear ?Z87.42 - Personal history of other diseases of the female genital tract (ICD-10) Gastroesophageal reflux disease ?K21.9 - Gastro-esophageal reflux disease without esophagitis (ICD-10) Chronic constipation ?K59.09 - Other constipation (ICD-10) Chronic back pain ?M54.9 - Dorsalgia, unspecified (ICD-10) ?G89.29 - Other chronic pain (ICD-10) Anxiety ?F41.9 - Anxiety disorder, unspecified (ICD-10) Surgical History H/O microdiscectomy ?Z98.890 - Other specified postprocedural states (ICD-10) Status post excision of lipoma (2017) ?Z98.890 - Other specified postprocedural states (ICD-10) ?Z86.018 - Personal history of other benign neoplasm (ICD-10) Status post dilation and curettage (04/09/21) ?Z98.890 - Other specified postprocedural states (ICD-10) History of tonsillectomy (2010) ?Z90.89 - Acquired absence of other organs (ICD-10) History of spinal surgery (09/21/09) ?Z98.890 - Other specified postprocedural states (ICD-10) History of spinal fusion (01/15/11) ?Z98.1 - Arthrodesis status (ICD-10) History of Ronni-en-Y gastric bypass (2003) ?Z98.84 - Bariatric surgery status (ICD-10) History of microdiscectomy (2005) ?Z98.890 - Other specified postprocedural states (ICD-10) History of loop electrical excision procedure (LEEP) (1998) ?Z98.890 - Other specified postprocedural states (ICD-10) History of esophagogastroduodenoscopy (EGD) ?Z98.890 - Other specified postprocedural states (ICD-10) History of cholecystectomy ?Z90.49 - Acquired absence of other specified parts of digestive tract (ICD-10) History of carpal tunnel release (2007) ?Z98.890 - Other specified postprocedural states (ICD-10) Family History Mother Colon cancer Coronary artery disease Family/Other Colon cancer Paternal Grandfather Coronary artery disease Other Breast cancer Social History Narrative: does not use illicit drugs history of abuse lactose intolerance nonsmoker Smoking Status: Never smoker Do you use any of these nicotine containing products: None Second hand tobacco smoke exposure: No How often do you have a drink containing alcohol: never AUDIT-C Alcohol total score: 0 Non-prescribed substance use: marijuana (any form) Non-prescribed substance use details: medical cannibus Little interest or pleasure in doing things: several days Feeling down, depressed, or hopeless: more than half the days service: No Exam Narrative: Exam Narrative: Tall woman. Well-nourished. Seems mildly anxious. Seems uncomfortable. Is not demonstrating pulsatile wincing. Cranial nerves 2-12 intact. Pupils are equal and brisk and reactivity. She is demonstrating no nystagmus extraocular movements are full and appear to be without pain. Cranial nerves 2-12 are intact. Accurate point to point. I do not appreciate any focal weaknesses or sensory losses. She is moving all extremities without difficulty and with good strength. Is sore to palpation at the left paracervical musculature and into the periscapular musculature. Postoperative scars are evident midline and well- healed. There is no swelling or deformity otherwise. TMs are clear. Head is atraumatic. Sore to palpation also around the left cervical muscle insertion on the occiput. Did not attempt percussion here. Back is without deformity and nontender. Const: Vital Signs, click to edit/add: Vital Signs - 24 hr 06/07/23 21:37 Temperature 98.8 F Pulse Rate [Right Pulse Oximeter] 89 Respiratory Rate 20 Blood Pressure [Ri ght Upper Arm] 135/79 Pulse Oximetry 99 Oxygen Delivery Me thod Room Air Documenting provider has reviewed patient's vital signs: yes Course Vital Signs Vital signs: Initial Vital Signs Temperature 98.8 F 06/07/23 21:37 Temperature Source Temporal Artery Scan 06/07/23 21:37 Pulse Rate 89 06/07/23 21:37 Respiratory Rate 20 06/07/23 21:37 Blood Pressure 135/79 06/07/23 21:37 Blood Pressure Mean 97 06/07/23 21:37 Blood Pressure Position Sitting 06/07/23 21:37 Pulse Oximetry 99 06/07/23 21:37 Oxygen Delivery Method Room Air 06/07/23 21:37 Vital Signs Temperature 98.8 F 06/07/23 21:37 Pulse Rate 89 06/07/23 21:37 Respiratory Rate 20 06/07/23 21:37 Blood Pressure 135/79 06/07/23 21:37 Pulse Oximetry 99 06/07/23 21:37 Oxygen Delivery Method Room Air 06/07/23 21:37 Temperature 98.8 F 06/08/23 00:57 Pulse Rate 74 06/08/23 00:57 Respiratory Rate 20 06/08/23 00:57 Blood Pressure 125/78 06/08/23 00:57 Pulse Oximetry 99 06/08/23 00:55 Oxygen Delivery Method Room Air 06/08/23 00:55 Medications Administered Medications: Discontinued Medications Generic Name Dose Route Start Last Admin Trade Name Freq PRN Reason Stop Dose Admin Sodium Chloride 1,000 mls @ 1,000 mls/hr 06/07/23 22:12 06/07/23 23:43 0.9 % Sodium Chloride 1000 Ml IV 06/07/23 23:11 Infused .Q1H ONE Infusion Ketamine HCl 20 mg/ Sodium 500.2 mls @ 56,154.353 mls/hr 06/08/23 00:17 06/08/23 00:43 Chloride IVPB 06/08/23 00:18 Infused DIRECTED ONE Infusion 22 MG/KG/HR Ketorolac Tromethamine 30 mg 06/07/23 22:12 06/07/23 22:40 Ketorolac 30 Mg/Ml Inj IVP 06/07/23 22:13 30 mg ONCE ONE Administration Medical Decision Making MDM Narrative Medical decision making narrative: Ten days in and without escalating symptoms I would not anticipate any intervention. Doubtful head bleed including given mechanism. I think she is experiencing some degree of tension headache but also possibly partly related to occipital trauma around the occipital nerve. Occipital migraine? I do not believe is a migraineur. May have some post concussive symptoms. Can certainly screen for intracranial injury with head CT and cervical spine particularly in light of history of surgeries. Does not have hardware so cervical spine might be useful. I do not see symptoms to prompt MRI evaluation of head or spine generally. I discussed this further with Ms. Coffey later. Furthermore not available at this time here. Initially declining intervention for her headache. Feels she will be fine. I do return to discuss this further ultimately we do decide to proceed with treatment alternative to opiates that she would have. IV, normal saline, ketorolac. She does not take ibuprofen typically for 2 reasons: gastric bypass but also oral ibuprofen exacerbate stomach/intestinal symptoms. Head CT and cervical spine reviewed by me do not appear to show any evidence of recent injury. Other than some straightening of the lordotic curvature is noted prior with the x-rays. She is relieved with this news. Radiology over-read confirmed. On reassessment is still with not insignificant pain. has arrived as well. We decided to proceed with some low-dose ketamine infusion. On reassessment noting that does not like the way it makes her feel but acknowledges that headache is markedly reduced. Applied soft collar here in the emergency department. Given ice pack. Discussed potential concussive symptoms. I think though these symptoms are more related to the trauma about the occipital nerve area. Overall improved. See patient discharge plan Medical Records Medical records reviewed: Yes I reviewed the patient's medical records Discharge Plan Discharge Clinical Impression: Closed head injury, Headache, Occipital neuralgia of left side Patient Disposition: Home w/ Parent or Adult Condition: Improved Additional Instructions: Stay well-hydrated. Try to get quality and regular sleep. Gentle stretches of your neck a couple of times daily as tolerated. Can wear this soft collar for comfort over this next week. I understand you have imaging coming up this week but otherwise follow-up with primary care to discuss next steps. It does seem as though you have traumatized the occipital insertion of the neck musculature and possibly irritated then the occipital nerve exiting in the area. Focused treatment as discussed in this regard might be helpful. On follow-up I would discuss also more formal evaluation for potential concussion. Prescriptions: No Action aspirin 81 mg tablet,delayed release (DR/EC) 81 mg PO QDAY diltiazem HCl 180 mg capsule,extended release 24hr 180 mg PO DAILY ondansetron HCl 4 mg tablet 4 mg PO DAILY PRN oxycodone 10 mg tablet 10 mg PO QID PRN Patient Comments: Up to 5 times per day sennosides 8.6 mg tablet 8.6 mg PO QDAY valacyclovir 500 mg tablet 500 mg PO BID PRN cetirizine [Zyrtec] 10 mg tablet 10 mg PO BID Qty: 60 0RF trazodone 100 mg tablet 100 mg PO QHS Qty: 30 3RF pantoprazole 40 mg tablet,delayed release (DR/EC) 40 mg PO QAM Qty: 90 3RF escitalopram oxalate 20 mg tablet 20 mg PO QDAY Qty: 90 0RF Follow Up/Referrals: Chirag Tucker MD [Primary Care Provider] - Stand Alone Forms: [facility] Info Instructions
--- NOTE | 2023-06-07 22:13 | CRLHL7_ITS ---
For Patients: As a result of the Cures Act, medical imaging exams and procedure reports are released immediately into your electronic medical record. You may view this report before your referring provider. If you have questions, please contact your health care provider. INDICATION: Fall, impact to the back of the head 10 days ago TECHNIQUE: CT head without contrast. COMPARISON: MR of the head performed on 04/16/2022 FINDINGS: Brain: No acute hemorrhage. No acute transcortical infarct. No significant mass effect or midline shift. No significant edema. Ventricles: Unremarkable. Paranasal sinuses: Mild sinus disease with no acute abnormality appreciated. Mastoid air cells: Unremarkable. Orbits: Unremarkable. Calvarium and soft tissues: Unremarkable. IMPRESSION: No acute abnormality appreciated. Please note that all CT scans at this facility use dose modulation, iterative reconstruction, and/or weight-based dosing when appropriate to reduce radiation dose to as low as reasonably achievable. Dictated by Fermin Mora MD @ 06/07/2023 11:45:35 PM (Electronically Signed)
--- NOTE | 2023-06-07 22:13 | CRLHL7_ITS ---
For Patients: As a result of the Cures Act, medical imaging exams and procedure reports are released immediately into your electronic medical record. You may view this report before your referring provider. If you have questions, please contact your health care provider. INDICATION: Trauma, fall. TECHNIQUE: CT cervical spine without contrast. COMPARISON: None. FINDINGS: Vertebrae: Alignment is normal. There are no fractures or suspicious bony lesions. Discs and facet joints: Moderate multilevel degenerative disc spondylosis most prevalent at C6-7. Extraspinal findings: Prevertebral soft tissues, visualized airway, and visualized lungs are unremarkable. IMPRESSION: No sign of acute injury in the cervical spine. Please note that all CT scans at this facility use dose modulation, iterative reconstruction, and/or weight-based dosing when appropriate to reduce radiation dose to as low as reasonably achievable. Dictated by Ramsey Bustos MD @ 06/07/2023 11:51:34 PM (Electronically Signed)
[2023-06-07] MEDS: KETOROLAC 30 MG/ML inj IVP (22:40)
[2023-06-07] MEDS: 0.9 % SODIUM CHLORIDE 1000 ml 1,000 ML IV (22:40)
[2023-06-07 23:42] VITALS: TEMP 37.1
[2023-06-08] VITALS: O2SAT 99
--- NOTE | 2023-06-08 00:24 | ED.NURSE ---
verified with Jalen RN on wasting ketamine 30. verified with Jalen RN for infusion of Ketamine 20mg in 100cc NS bag hung over 15 minutes via pump.
[2023-06-08 00:55] VITALS: BP 125/78; PULSE 74; RESP 20; TEMP 37.1; O2SAT 99
[2023-06-08 00:57] VITALS: BP 125/78; PULSE 74; RESP 20; TEMP 37.1
== END 2023-06-08 00:57 | disposition home or self-care (01) ==
PROVIDERS: Emergency Provider Family Medicine; PCP Internal Medicine
DX: S09.90XA Unspecified injury of head, initial encounter (principal); R51.9 Headache, unspecified; M54.81 Occipital neuralgia; W01.0XXA Fall on same level from slipping, tripping and stumbling without subsequent striking against object, initial encounter; Y93.E3 Activity, vacuuming
CPT/HCPCS: 70450; 72125; 94761; 96361; 96374; 96375; 99284; 99285; J1885; J3490; J7030

== ENCOUNTER 2023-06-12 17:13 | Outpatient (CLI) | payer OTHER, SELFPAY ==
--- NOTE | 2023-06-12 17:30 | CRLHL7_ITS ---
For Patients: As a result of the Century Cures Act, medical imaging exams and procedure reports are released immediately into your electronic medical record. You may view this report before your referring provider. If you have questions, please contact your health care provider. INDICATION: Neck pain. History of C7-T1 microdiscectomy. COMPARISON: CT 06/07/2023. TECHNIQUE: Sagittal T1, T2, and STIR sequences. Axial T2/gradient sequences. FINDINGS: Stable straightening and mild reversal of the normal cervical doses which may be secondary to muscle spasm or patient positioning. Otherwise, normal vertebral body and facet alignment. No acute fractures. No vertebral body loss of height. No spondylolisthesis. No ligamentous injury. Postoperative changes of a left C7-T1 laminotomy. Edema and likely granulation tissue within the posterior soft tissues of the operative bed. No suspicious osseous lesions. Normal cord signal. No intradural mass or lesion. C1-2: No spinal canal narrowing. C2-3: No narrowing of spinal canal. No neural foraminal narrowing. C3-4: Disk degeneration and posterior disc bulging disc osteophyte complex. Effacement of the ventral thecal sac. No narrowing of spinal canal. Moderate narrowing of the left neural foramen. No narrowing of the right neural foramen. C4-5: Disc degeneration and posterior disc bulge or disc osteophyte complex. Mild narrowing of spinal canal. No neural foraminal narrowing. C5-6: Disc degeneration and posterior disc bulge or disc osteophyte complex. Effacement of the ventral thecal sac and mild narrowing of spinal canal. Uncovertebral joint hypertrophy results in moderate severe narrowing of the left neural foramen. No narrowing of the right neural foramen. Potential impingement of the left C6 nerve root. C6-7: Disc generation and posterior disc bulging disc osteophyte complex. No narrowing of spinal canal. Mild right and moderate left neural foraminal narrowing. C7-T1: No spinal canal or neural foraminal narrowing. IMPRESSION: 1. Stable straightening and mild reversal of the normal cervical lordosis. Otherwise, normal alignment. No fractures 2. Normal cord signal. No intradural mass or lesion. 3. Postoperative changes left C7-T1 laminotomy. Edema and likely granulation tissue within the posterior soft tissues. 4. At C3-4, moderate narrowing of the left neural foramina 5. At C5-6, mild narrowing of the spinal canal. Moderate to severe narrowing of the left neuroforamen. Potential impingement of the left C6 nerve root. 6. At C6-7, mild right and moderate left neural foraminal narrowing. Dictated by Arpan Stewart MD @ 06/13/2023 11:42:31 AM (Electronically Signed)
--- NOTE | 2023-06-12 18:15 | CRLHL7_ITS ---
For Patients: As a result of the Cures Act, medical imaging exams and procedure reports are released immediately into your electronic medical record. You may view this report before your referring provider. If you have questions, please contact your health care provider. INDICATION: Intracranial hemorrhage. Comparison CT 06/07/2023. Technique: Multiplanar T1, T2, FLAIR and diffusion-weighted imaging. FINDINGS: Normal brain parenchymal morphology. Few scattered punctate foci of T2/FLAIR signal hyperintensities within the white matter of both cerebral hemispheres consistent with chronic deep white matter small vessel ischemic changes or sequela of migraine headache. No intracranial hemorrhage. No abnormal ventricular dilatation. Intracranial vascular flow voids are preserved. No mass effect or midline shift. No restricted diffusion to suggest acute ischemia. No susceptibility artifact of remote hemorrhage. Bilateral orbits are unremarkable. Normal appearing sella. Visualized paranasal sinuses and mastoid air cells are unremarkable. IMPRESSION: 1. No acute intracranial abnormality 2. Normal brain parenchymal morphology. Few scattered punctate foci of T2 signal within the white matter of both cerebral hemispheres consistent with chronic deep white matter small vessel ischemic changes or sequela of migraine headache 3. No acute or chronic intracranial hemorrhage Dictated by Arpan Stewart MD @ 06/13/2023 11:36:37 AM (Electronically Signed)
--- NOTE | 2023-06-12 19:00 | CRLHL7_ITS ---
For Patients: As a result of the Century Cures Act, medical imaging exams and procedure reports are released immediately into your electronic medical record. You may view this report before your referring provider. If you have questions, please contact your health care provider. INDICATION: Neck pain. History of microdiscectomy. COMPARISON: None. TECHNIQUE: Sagittal T1, T2, and STIR sequences. Axial T2/gradient sequences. FINDINGS: Normal vertebral body and facet alignment. No fractures. No vertebral body loss of height. No spondylolisthesis. No ligamentous injury. No suspicious osseous lesions. Subtle patchy T2 and STIR hyperintensity of the cord at the level of T7-8 and may represent myelomalacia or chronic spondylotic myelopathy. Normal signal intensity within the remainder of the cord. No cord atrophy or expansion. T7-8: Disc degeneration with a right paracentral disc protrusion measures approximately 3 mm in short axis. Effacement of the ventral thecal sac and mild narrowing of the spinal canal. No neural foraminal narrowing. No spinal canal or neural foraminal narrowing at the remaining levels of the thoracic spine. Normal paraspinal soft tissues. IMPRESSION: 1. Normal alignment. No fractures. 2. Subtle patchy T2 and STIR hyperintensity of the cord at the level of T7-8 may represent myelomalacia or chronic spondylitic myelopathy. 3. At T7-8, right paracentral disc protrusion. Mild narrowing of the spinal canal. No neural foraminal narrowing. 4. No spinal canal or neural foraminal narrowing at the remaining levels of the thoracic spine. Dictated by Arpan Stewart MD @ 06/13/2023 12:09:25 PM (Electronically Signed)
== END 2023-06-12 17:14 | disposition home or self-care (01) ==
LOC: MRI 17:14
PROVIDERS: PCP Internal Medicine; Visit Provider Nurse Practitioner Family
DX: M54.2 Cervicalgia (principal); R51.9 Headache, unspecified; M51.24 Other intervertebral disc displacement, thoracic region; M50.222 Other cervical disc displacement at C5-C6 level
CPT/HCPCS: 70551; 72141; 72146

== ENCOUNTER 2023-06-13 09:30 | Outpatient (RCR) | payer OTHER, SELFPAY ==
--- NOTE | 2023-05-29 11:43 | PC.NURSE ---
Diagnosis: Iron Deficiency Anemia
--- NOTE | 2023-05-29 12:09 | URNOTE ---
Request received for authorization for Iron Sucrose ([id number]). Prior authorization is not required per [facility] Ref#[id number].
[2023-06-04 08:43] VITALS: BP 114/74; PULSE 80; RESP 16; TEMP 36.3; O2SAT 97
[2023-06-04] MEDS: IRON SUCROSE COMPLEX 200 MG in 0.9 % SODIUM CHLORIDE 100 ml 440 MG IVPB (09:20)
[2023-06-04 09:41] VITALS: BP 109/77; PULSE 72; RESP 16; TEMP 36.4; O2SAT 98
[2023-06-04 10:11] VITALS: BP 121/79; PULSE 78; RESP 16; TEMP 36.7; O2SAT 99
[2023-06-06 08:12] VITALS: BP 108/68; PULSE 69; RESP 18; TEMP 36.4; O2SAT 98
[2023-06-06] MEDS: IRON SUCROSE COMPLEX 200 MG in 0.9 % SODIUM CHLORIDE 100 ml 440 MG IVPB (08:45)
[2023-06-06] MEDS: SODIUM CHLORIDE 0.9 % (FLUSH) 10 ML SYRINGE IVF (08:49)
[2023-06-06] MEDS: 0.9 % SODIUM CHLORIDE 250 ml IV (08:49)
[2023-06-06 09:01] VITALS: BP 108/69; PULSE 69; RESP 16; TEMP 36.4; O2SAT 98
[2023-06-09 08:06] VITALS: BP 102/73; PULSE 76; RESP 16; TEMP 36.4; O2SAT 97
[2023-06-09] MEDS: 0.9 % SODIUM CHLORIDE 250 ml IV (08:42)
[2023-06-09] MEDS: IRON SUCROSE COMPLEX 200 MG in 0.9 % SODIUM CHLORIDE 100 ml 440 MG IVPB (08:42)
[2023-06-09] MEDS: SODIUM CHLORIDE 0.9 % (FLUSH) 10 ML SYRINGE IVF (08:43)
[2023-06-11 08:11] VITALS: BP 110/73; PULSE 73; RESP 16; TEMP 36.4; O2SAT 99
[2023-06-11] MEDS: SODIUM CHLORIDE 0.9 % (FLUSH) 10 ML SYRINGE IVF (08:25)
[2023-06-11] MEDS: IRON SUCROSE COMPLEX 200 MG in 0.9 % SODIUM CHLORIDE 100 ml 440 MG IVPB (08:25)
[2023-06-11] MEDS: 0.9 % SODIUM CHLORIDE 250 ml IV (08:25)
[2023-06-11 09:09] VITALS: BP 115/80; PULSE 79; RESP 16; TEMP 36.4; O2SAT 95
[2023-06-13 09:43] VITALS: BP 112/72; PULSE 75; RESP 16; TEMP 36.1; O2SAT 96
[2023-06-13] MEDS: IRON SUCROSE COMPLEX 200 MG in 0.9 % SODIUM CHLORIDE 100 ml 440 MG IVPB (10:20)
[2023-06-13 10:41] VITALS: BP 116/75; PULSE 75; RESP 16; O2SAT 97
[2023-06-13] MEDS: SODIUM CHLORIDE 0.9 % (FLUSH) 10 ML SYRINGE IVF (10:42)
[2023-06-13] MEDS: 0.9 % SODIUM CHLORIDE 250 ml IV (10:42)
[2023-06-13 11:13] VITALS: BP 119/75; PULSE 75; RESP 16; O2SAT 91
== END 2023-12-01 23:59 | disposition home or self-care (01) ==
LOC: CCIC 09:30
PROVIDERS: PCP Internal Medicine; Referring Provider Internal Medicine; Visit Provider Internal Medicine
DX: D50.9 Iron deficiency anemia, unspecified (principal)
CPT/HCPCS: 96365; 96374; J1756; J7050

== ENCOUNTER 2023-07-07 09:13 | Outpatient (CLI) | payer OTHER, SELFPAY | END 2023-07-07 09:14 | disposition home or self-care (01) | PROVIDERS: PCP Internal Medicine; Visit Provider Internal Medicine | DX: D64.9 Anemia, unspecified (principal) | CPT/HCPCS: 83540; 83550; 85045 ==

== ENCOUNTER 2023-07-15 15:21 | Outpatient (CLI) | payer OTHER, SELFPAY | END 2023-07-15 15:22 | disposition home or self-care (01) | PROVIDERS: PCP Internal Medicine; Visit Provider Internal Medicine | DX: R10.9 Unspecified abdominal pain (principal) | CPT/HCPCS: 80053 ==

== ENCOUNTER 2023-07-16 15:03 | Outpatient (CLI) | payer OTHER, SELFPAY | END 2023-07-16 15:04 | disposition home or self-care (01) | LOC: NFLDREF 07-25 08:46 | PROVIDERS: PCP Internal Medicine; Referring Provider Internal Medicine; Visit Provider Internal Medicine | DX: R10.9 Unspecified abdominal pain (principal) | CPT/HCPCS: 87338 ==

== ENCOUNTER 2023-07-18 08:55 | Outpatient (CLI) | payer OTHER, SELFPAY ==
--- NOTE | 2023-07-18 09:15 | US_ITS ---
Patient: RESHMA DELEON Facility:?[facility] Patient ID:?[id number] Site Patient ID:?[id number] Site :?[id number] Study:?US-Abdomen RUQ-07/18/2023 9:32:51 AM Ordering Physician:?ELIZABETH LUCAS M.D. Final Report: INDICATION: Unspecified abdominal pain COMPARISON: CT 05/19/2023 TECHNIQUE: Real time gardner scale imaging and color Doppler analysis was performed of the right upper quadrant. FINDINGS: The patient`s liver measures 18.3 cm and has uniform echogenicity. Main portal vein measures 1.2 cm and is patent. There is a normal appearance of the hepatic IVC and proximal abdominal aorta. There is no evidence of ascites. The gallbladder is absent. The common bile duct is of normal size and measures 6.6 mm in diameter at the level of the [place] hepatis. The pancreas appears normal. There is no evidence of a stone or hydronephrosis within the right kidney. The right kidney measures 11.2 cm in length. IMPRESSION: Status post cholecystectomy. No biliary obstruction. Liver is top-normal in size. Dictated by Oscar Schuler MD @ 07/18/2023 9:48:17 AM Signed by:?Oscar Schuler MD @07/18/2023 9:48:17 AM (Electronic Signature)
== END 2023-07-18 08:56 | disposition home or self-care (01) ==
LOC: US 08:56
PROVIDERS: PCP Internal Medicine; Visit Provider Internal Medicine
DX: R10.9 Unspecified abdominal pain (principal)
CPT/HCPCS: 76705

== ENCOUNTER 2023-08-12 09:38 | Emergency (ER) | payer OTHER, SELFPAY ==
[2023-08-12 09:52] VITALS: BP 121/80; PULSE 78; RESP 16; TEMP 36.6; O2SAT 99; BMI 29.0
== END 2023-08-12 11:13 | disposition left against medical advice (07) ==
PROVIDERS: Emergency Provider Emergency Medicine; PCP Internal Medicine
DX: Z53.21 Procedure and treatment not carried out due to patient leaving prior to being seen by health care provider (principal)

== ENCOUNTER 2023-09-22 14:59 | Outpatient (CLI) | payer OTHER, SELFPAY ==
--- NOTE | 2023-09-22 15:00 | US_ITS ---
Patient: RESHMA DELEON Facility:?[facility] Patient ID:?[id number] Site Patient ID:?[id number]. Site :?[id number] Study:?US-Thyroid THYROID-09/22/2023 3:26:56 PM Ordering Physician:?MADELAINE LYN M.D. Final Report: INDICATION: Nontoxic single thyroid nodule COMPARISON: none TECHNIQUE: Callaway scale and color Doppler images were acquired of the thyroid gland. FINDINGS: The thyroid gland demonstrates mildly heterogeneous echogenicity and has a smooth outer contour. Tiny cysts are present bilaterally. The right lobe measures 6.1 x 1.7 x 2.2 cm and the left lobe measures 4.9 x 1.5 x 1.7 cm in size. Isthmus measures 3 millimeters. There are no suspicious masses or nodules. The color Doppler images demonstrate normal vascularity. There is no evidence of cervical lymphadenopathy or parathyroid mass. IMPRESSION: No suspicious thyroid nodule. Dictated by Oscar Schuler MD @ 09/23/2023 9:04:22 AM Signed by:?Oscar Schuler MD @09/23/2023 9:04:22 AM (Electronic Signature)
--- OUTSIDE RECORDS SUMMARY | 2023-09-22 15:03 | XMS_ITS | Referral Summary ---
Author Name Unknown Organization [facility] Address [address] [place] [address] Care Team Providers Care Cigarette Lighter Repairer Name Role Phone Blake Dalal PA-C Primary Care Provider [phone] Allergies Active Allergy Reactions Criticality Noted Date Comments Tramadol 11/30/2011 Medications Medication Sig Dispensed Refills Start Date End Date Status Multiple Vitamins-Minerals (CENTRUM SILVER) per tablet Take 2 tablets by mouth daily Active Cyanocobalamin (VITAMIN B 12 PO) Active Acetaminophen (TYLENOL PO) Take 325 mg by mouth every 8 hours as needed Takes 3 tablets Active oxyCODONE-acetaminophen (PERCOCET) 10-325 MG per tablet Take 1 tablet by mouth every 4 hours as needed for moderate to severe pain Active metoprolol (TOPROL-XL) 100 MG 24 hr tabletIndications:Parox ysmal supraventricular tachycardia (H24) Take 1 tablet (100 mg) by mouth daily 90 tablet 3 07/19/2014 Active Morphine Sulfate (MS CONTIN PO) Take 15 mg by mouth 2 times daily Active DULoxetine HCl (CYMBALTA PO) Take 20 mg by mouth daily Active Active Problems Problem Noted Date Diagnosed Date Paroxysmal supraventricular tachycardia (H24) Social History Tobacco Use Types Packs/Day Years Used Date Smoking Tobacco: Never Smokeless Tobacco: Never Alcohol Use Standard Drinks/Week Comments Yes 0 (1 standard drink = 0.6 oz pur e alcohol) occ Adolescent Education Answer Date Record ed Getting School Help Needed Not on file 02/09 Sex and Gender Information Value Date Recorded Sex Assigned at Not on file Gender Identity Not on file Sexual Orientation Not on file Last Filed Vital Signs Vital Sign Reading Time Taken Comments Blood Pressure 113/85 07/24/2020 11:30 PM CDT Pulse 82 07/24/2020 11:30 PM CDT Temperature 36.7 ??C (98 ??F) 07/24/2020 9:11 PM CDT Respiratory Rate 18 07/24/2020 9:11 PM CDT Oxygen Saturation 98% 07/24/2020 11: 30 PM CDT Inhaled Oxygen Concentration - - Weight 124.1 kg (273 lb 9.5 oz) 07/24/2020 9:31 PM CDT Height 185.4 cm (6' 1) 11/06/2014 7:23 AM CDT Body Mass Index 36.1 11/06/2014 7:23 AM CDT Plan of Treatment Not on file Care Teams Cigarette Lighter Repairer Relationship Specialty Start Date End Date Blake Dalal PA-C [facility] [address] [facility] [place], [place] [id number] PCP - General 07/24/20
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
--- OUTSIDE RECORDS SUMMARY | 2023-09-22 15:03 | XMS_ITS | Continuity of Care Document ---
Author Name Unknown Organization [facility] Address [address] [place] [address] [place] [address] Care Team Providers Care Form Setter Steel Forms Name Role Phone [facility] Unavailable Unav ailable Procedures Procedure Date IMPLANT NEUROELECTRODES IMPLANT NEUROELECTRODES Implt neurostim elctr each IMPLANT NEUROELECTRODES Advance Directives Directive Yes / No Effective Date File Name No Information Encounters Encounter Description Practice Location Reason(s) For Visit Diagnoses Date Provider Providers Copied on Encounter [facility], [address] [place], [place], [id number], [facility] No Information [facility]. [address] [place], [place], [id number], . tel:[phone] Referring Provider: Melissa Cornejo, [address] [place], [address]. tel:[phone] Family History Family Member Type Diagnosis Age At Onset No Information Payers Payer name Insurance type Covered green party ID Authoriza tion(s) No Information Social History Type Description Quantity Date Captured Comments Sex Female Smoking Status No Information Chief Complaint And Reason For Visit No Information Reason For Referral Reason For Referral No Information History Of Present Illness Encounter Date Complaint History Of Prese nt Illness No Information Functional Status Date Functional Assessmen t No Information Instructions Date Instruction Additional Infor mation No Information Assessments Type Assessment Date No Information Patient Care Teams Name Effective Dates (start - stop) Status Members No Information
--- OUTSIDE RECORDS SUMMARY | 2023-09-22 15:03 | XMS_ITS | Continuity of Care Document ---
Author Name Unknown Organization [facility] Address [address] [place] [phone] Phone Care Team Providers Care Training Program Assistant Name Role Phone [facility] Unavailable Unava ilable Procedures Procedure Date INTERLAMINAR CRV OR THRC INTERLAMINAR CRV OR THRC Advance Directives Directive Yes / No Effective Date File Name No Information Encounters Encounter Description Practice Location Reason(s) For Visit Diagnoses Date Provider Providers Copied on Encounter [facility], [address] [place] [address], [id number], tel:[phone] [facility] No Information 2 [facility]. [address] [place] [address], [id number], . tel:[phone] Referring Provider: Power Warner, [address] [facility] [place], [address] . tel:[phone] Family History Family Member Type Diagnosis Age At Onset No Information Payers Payer name Insurance type Covered constitution party ID Treva proctor(s) r [place] [id number] Social History Type Description Quantity Date Captured [...]
--- OUTSIDE RECORDS SUMMARY | 2023-09-22 15:03 | XMS_ITS | Continuity of Care Document ---
Author Name Unknown Organization [facility] Address [address] [place] [address] Care Team Providers Care Photo Lab Technician Name Role Phone Homero Grant CRNA Unavailable Unavaila ble Procedures Procedure Date ANESTH PERC IMG TX SP PROC Advance Directives Directive Yes / No Effective Date File Name No Information Encounters Encounter Description Practice Location Reason(s) For Visit Diagnoses Date Provider Providers Copied on Encounter [facility], [address] [place], [place], [id number], [place] [facility] [place] No Information Rudy Valentin. [address] [place], [place], [id number], . tel:[phone] Referring Provider: Melissa Cornejo, [address] [facility] [place], [address] . tel:[phone] Family History Family Member Type Diagnosis Age [...]
--- OUTSIDE RECORDS SUMMARY | 2023-09-22 15:03 | XMS_ITS | Clinical Summary ---
Author Name Unknown Organization [facility] Address [address] [place] [address] Care Team Providers Care Land Leasing Information Clerk Name Role Phone Romeo Gilmore MD Primary Care Provider + Source Comments You are receiving this document as you are listed as the primary care provider,follow-up provider, or the patient has been referred to you for consultation.This is in compliance with the Medicare and[facility] Hospitalcaid EHR Incentive Program,which states Providers who transition their patient to another setting of careor provider of care or refers their patient to another provider of care shouldprovide summary care record for each transition of care or referral. [facility] Allergies Active Allergy Reactions Criticality Noted Date Comments Tramadol Rash High 12/13/2010 Tramadol Rash 06/29/2019 Medications Medication Sig Dispensed Refills Start Date End Date Status Multiple Vitamins-Minerals (MULTIVITAMIN OR) Take 1 tablet by mouth 2 times daily. 100 03/19/2007 Active oxyCODONE-Acetaminop hen (AKA PERCOCET) 10-325 MG tablet Take 1-2 tablets by mouth every 4 hours as needed for Pain. Maximum 12 tablets/24 hours 05/26/2014 Active acyclovir (ZOVIRAX) 400 MG tablet Take 1 Tab by mouth two times a day. 90 Tab 2 04/10/2016 Active acetaminophen (TYLENOL) 325 MG tablet Take 1-2 Tablets by mouth every 4 hours as needed for Pain. 100 Tablet 11 06/29/2019 Active aspirin 81 MG tablet Take 1 Tablet by mouth daily. 100 Tablet 3 06/29/2019 Active senna (SENOKOT) 8.6 MG tablet Take 1 Tablet by mouth daily. 06/29/2019 Active diltiaZEM CR (DILACOR XR) 180 MG 24 hour release capsule Take 1 Capsule by mouth daily. 90 Capsule 3 06/29/2019 Active oxyCODONE HCl 10 MG TK 1 T PO Q 3 HOURS FOR CHRONIC PAIN. MAX 7 TABLETS /DAY 08/04/2019 Active pantoprazole (PROTONIX) 40 MG tablet 08/26/2019 Active Active Problems Problem Noted Date Diagnosed Date Anxiety 08/30/2019 History of bariatric surgery 08/30/2019 History of depression 08/30/2019 Lumbar degenerative disc disease 08/30/2019 Anxiety 11/23/2013 Atrial flutter 10/25/2013 PFO (patent foramen ovale) 10/25/2013 Family history of breast cancer 10/08/2012 Overview: Paternal cousin at age 35 Contraceptive surveillance 10/08/2012 Other and unspecified disc disorder 09/12/2009 Overview: LW Modifier: ruptured LW Onset: 2006 ; Disc Disorder NOS Genital herpes 09/12/2009 Overview: LW Onset: 2004 ; Herpes Genitalis Palpitations 07/13/2009 Overview: LW Modifier: atrial flutter Abnormal glandular Papanicolaou smear of cervix 07/12/2009 Overview: LW Modifier: LEEP LW Onset: 1999 ; Pap Smear Abnormal Pers Hx Obesity 10/09/2002 Chronic low back pain Overview: s/p back fusion surgery Resolved Problems Problem Noted Date Diagnosed Date Resolved Date Contraceptive management 07/13/200910/2012 Overview: LW Onset: 07/2009 ; Contraceptive Management NOS Contraceptive management 07/12/200903/2010 Overview: LW Onset: 07/2009 ; Contraceptive Management NOS Immunizations Name Administration Dates Next Due Flu Vac Preserv Free (3+yrs) 03/19/2007 TDAP (ADACEL) 05/15/2010 Family History Medical History Relation Name Comments Colon Polyps Father Heart Disease Father Colon Polyps Mother Alzheimer's Maternal Grandfather Dementia Maternal Grandfather Cataract Maternal Grandmother Cancer Paternal Grandmother Chronic Back Pain Other 2 [facility] manages rx Relation Name Status Comments Father Alive Mother Alive Maternal Grandfather Maternal Grandmother Paternal Grandfather Paternal Grandmother Sister 1 Alive Sister 2 Alive Sister 3 Alive Sister 4 Alive Sister 5 Alive Sister 6 Alive Other 1 Other 2 Social History Tobacco Use Types Packs/Day Years Used Date Smoking Tobacco: Never Smokeless Tobacco: Never Alcohol Use Standard Drinks/Week Comments Yes 1 (1 standard drink = 0.6 oz pure alcohol) Alcoholic Drinks/day: Amount:1-2 drinks; Freq:2-4/Month ; Sex and Gender Information Value Date Recorded Sex Assigned at Not on file Gender Identity Not on file Sexual Orientation Not on file Last Filed Vital Signs Vital Sign Reading Time Taken Comments Blood Pressure 101/74 12/07/2020 2:27 PM CDT Pulse 78 12/07/2020 2:27 PM CDT Temperature 36.8 ??C (98.2 ??F) 02/02/2014 8:48 AM CD T Respiratory Rate 18 02/02/2014 8:48 AM CDT Oxygen Saturation 98% 02/02/2014 8:48 AM CDT Inhaled Oxygen Concentration - - Weight 125.6 kg (277 lb) 12/07/2020 2:27 PM CDT Height 185.4 cm (6' 1) 2014 7:27 AM CDT Body Mass Index 36.55 2014 7:27 AM CDT Plan of Treatment Health Maintenance Due Date Last Done Comments Adult Preventive Visit 08/11/1997 HepB (1) 08/11/1998 Cervical Cancer Screening Due 08/13/2014 2014, 10/08/2012, 06/26/2011, Additional history exists COVID-19 Vaccine ( season) 2023 Influenza (Season Ended) 2024 019, 06/24/2018, 03/19/2007 DTaP/Tdap/Td (4 - Tdap) 10/14/2028 10/15/19 19, 05/15/2010, 03/09/2007 Zoster/Shingles (1 of 2) 08/11/2029 HIV Screening (Preventive Services) Completed 2014, 10/08/2012, 06/26/2011, Additional history exists Hep C Screening (Preventive Services) Completed 2014, 10/08/2012, 06/26/2011, Additional history exists HPV Vaccine Aged Out No longer eligi ble based on patient's age to complete this topic HepA Aged Out No longer eligi ble based on patient's age to complete this topic Hib Aged Out No longer eligi ble based on patient's age to complete this topic IPV (Polio) Aged Out No longer eligi ble based on patient's age to complete this topic MCV4 Aged Out No longer eligi ble based on patient's age to complete this topic Pneumococcal Aged Out No longer eligi ble based on patient's age to complete this topic Procedures Procedure Name Priority Date/Time Associated Diagnosis Comments ANATOMICAL PATH LIQUID BASED Routine 2014 9:08 AM CDT HIV ANTIBODY Routine 2014 8:16 AM CDT Screen for STD (sexually transmitted disease) HEPATITIS C ANTIBODY, WITH REFLEX Routine 2014 8:16 AM CDT Screen for STD (sexually transmitted disease) from Last 3 Months or Most Recently Relevant to Health Maintenance Results * Pap Smear (2014 9:08 AM CDT) 2014 9:08 AM CDT Narrative HP CONVERSION - 08/18/2014 12:05 PM CDT Performed at [facility], [address] [place] [address] FINAL GYNECOLOGICAL CYTOLOGY REPORT Pathology #: [id number] ?Date Obtained: 2014 ? Date Received: 08/15/2014 INTERPRETATION/RESULTS: Negative for Intraepithelial Lesion or Malignancy. SPECIMEN ADEQUACY: Satisfactory for Evaluation. ??Endocervical cells/transformation zone component present. Verified on 08/18/2014 ??by AQUILES BUTT(ASCP) (electronic signature) CLINICAL NOTES: ?Abnormal bleeding: No, LMP: 07/06/2014, Hormonal TX: No LIQUID BASED PAP SMEAR SPECIMEN TYPE: ?CERVICAL & HPV REGARDLESS OF PAP RESULT PLEASE NOTE: The pap smear is a screening test designed to aid in the detection of cervical cancer and its precursor lesions. It is not a diagnostic procedure and should not be used as the sole means of detecting cervical cancer. Both false-positive and false-negative reports may occur. ? End of Report Transcriptions 06/13/2016 9:07 AM CSTNotes Recorded by Michelle Mathur APRN, CNP on 08/18/2014 at 8:16 PMResults normal. Sent message to pt via [employer]. MS-COUNCIL ON AGING DIRECTOR Michelle Mathur APRN, CNP LAB_1 Performing Organization Address [facility] Co de Phone Number HP CONVERSION * HIV ANTIBODY (2014 8:16 AM CDT) Pathologist [facility] HIV 1/HIV 2 Non-React Non-Reacti ve HP CONVERSION 2014 8:16 AM CDT 2014 12:55 PM CDT Narrative HP CONVERSION - 2014 3:08 PM CDT Performed at [address] [address] Transcriptions 06/13/2016 9:20 AM CSTNotes Recorded by Michelle Mathur APRN, CNP on 2014 at 3:31 PMResults normal except for elevated fasting glucose. Patient advised to followup with PCP. Sent message to pt via [employer]. MS-RUSLAN Michelle Mathur APRN, CNP LAB_1 Performing Organization Address [facility]/ZIP Co de Phone Number HP CONVERSION * Hepatitis C Antibody, with Reflex (2014 8:16 AM CDT) Hepatitis C Antibody Non-React Non-Reacti ve HP CONVERSION 2014 8:16 AM CDT 2014 12:55 PM CDT Narrative HP CONVERSION - 2014 2:43 PM CDT Performed at [address] [address] Transcriptions 06/13/2016 9:20 AM CSTNotes Recorded by Michelle Mathur APRN, CNP on 2014 at 3:31 PMResults normal except for elevated fasting glucose. Patient advised to followup with PCP. Sent message to pt via [employer]. MS-RUSLAN Michelle Mathur APRN, CNP LAB_1 HP CONVERSION from Last 3 Months or Most Recently Relevant to Health Maintenance Care Teams Land Leasing Information Clerk Relationship Specialty Start Date End Date Romeo Gilmore MD [address] [place] [address] PCP - General 06/28/19
--- OUTSIDE RECORDS SUMMARY | 2023-09-22 15:03 | XMS_ITS | Encounter Summary ---
Author Name Unknown Organization [facility] Address [address] [facility] [place] [address] Care Team Providers Care Spinning Lathe Operator Automatic Name Role Phone Abdelrahman Sanchez Primary Care Provider [phone] Abdelrahman Sanchez Primary Care Provider [phone] Blake Dalal PA-C Primary Care Provider [phone] Encounter Details Date Type Department Care Team (Late st Contact Info) Description 03/25/2013 Office Visit-[facility] [place] [id number] [facility] [address] [place] [phone] Marshall Luo MD [address] [facility] [address] [place], [place] [id number] Social History Tobacco Use Types Packs/Day Years [...] Progress Notes * Marshall Luo MD - 05/11/2013 2:07 PM CST Progress Note Created by: Marshall Luo MD [facility] DATE: 03/25/2013 DELMY RINALDI DATE OF : 1980 AGE: [age] years old Referring Physician: ABDELRAHMAN SANCHEZ Referring Clinic: [facility] CURRENT DIAGNOSES 1. - SVT (supraventricular tachycardia), 427.89 2. - Atrial Flutter, 427.32 ALLERGIES tramadol HCl, Rash MEDICATIONS (prior to changes made today) 1. Lutera (28) 0.1-20 mg-mcg tablet, 1 p.o. daily 2. metoprolol succinate 50 mg tablet extended release 24 hr, 1/2 tab daily May increase to 1 Tab daily after one week. 3. Protonix 40 mg tablet,delayed release (DR/EC), 1 p.o. daily CHIEF COMPLAINTS Followup of - Atrial Flutter, review echo, review holter and SVT Of note, I had the chance to review event monitor records from 2006, and I was not able to find anytracing suggestive of SVT/AFlutter (all sinus tachycardia). REASON FOR VISIT: Routine evaluation regarding atrial flutter/SVT. HISTORY OF PRESENT ILLNESS: Ms. Rinaldi is a pleasant 32-year-old lady with a history of morbid obesity (status post gastric bypass surgery), previous GI bleed, and SVT/atrial flutter who is here for routine follow up regarding SVT. The patient was recently seen by me a couple of weeks ago. At the time she presented for evaluationof SVT as most recently she started having episodes of palpitations. An echocardiogram and a Holterwere ordered and she is here for routine follow up. At the moment she is doing well. She continues to have intermittent episodes of palpitations which are not as frequent. At this time she complains mostly of chest discomfort which she claims to be constant on her chest. She informs that she also has moments when she wakes up with shortness of breath. An echocardiogram done on March 19 showed the atrial septum with aneurysmal, very small left to right shunt. No bubble study was done due to inability to get IV access. The right atrium and RV chambers are normal size. Holter monitor revealed one episode of SVT (25 beats). The patient pushed thebutton five times, and one of the times correlated with an episode of SVT. Most of the other times she pushed the button because she felt like she was having constant chest discomfort. PAST HISTORY Past Medical Illnesses: carpal tunnel syndrome Past Cardiac Illnesses: history of atrial flutter (?)/ SVT Surgeries/Procedures - General: PUD with GI bleed (2011), bypass gastric duodenal switch (2003; malnurished after [...] - lives with children; Place of - [place]; Hours Worked - 40 hours per week; REVIEW OF SYSTEMS GENERAL patient states she is not feeling well,, fatigued INTEGUMENTARY denies any change in hair or nails, rashes, or skin lesions. EYES denies diplopia, history of glaucoma or visual field defects. EARS, NOSE, THROAT, MOUTH denies any hearing loss, epistaxis, hoarseness or difficulty speaking. RESPIRATORY has woken up from sleep gasping for air 3 episodes in the last 2 or 3 weeks CARDIOVASCULAR chest tightness, heaviness can cause dyspnea, pierces to the back, can feel lighrt headed and dizzywith this ABDOMINAL denies ulcer disease, hematochezia or melena. MUSCULOSKELETAL denies any history of arthritic symptoms or back problems. NEUROLOGICAL denies any history of recurrent headaches, strokes, TIA, or seizure disorder. PSYCHIATRIC positive for sleep disturbance ENDOCRINE denies any history of thyroid disease or diabetes mellitus. HEMATOLOGICAL/IMMUNOLOGIC denies any food allergies, seasonal allergies, bleeding disorders. PHYSICAL EXAMINATION VITAL SIGNS: Blood Pressure: 140/80Sitting, Left arm, large cuff Pulse- 80.00/min. Weight- 264.00 lbs. Height- 73 BMI Measurement: 35 CONSTITUTIONAL cooperative, alert and oriented,well developed, well [...] time, person and place. MEDICATIONS UPDATED/STARTED TODAY: metoprolol succinate 50 mg tablet extended release 24 hr, 1/2 tab daily May increase to 1 Tab dailyafter one week., #90 (Ninety) Protonix 40 mg tablet,delayed release (DR/EC), 1 p.o. daily, #90 (Ninety) MEDICATIONS REFILLED/STOPPED TODAY: oxycodone-acetaminophen 5-325 mg tablet 1 p.o. PRN as Directed #0 (Zero) Patient Terminated IMPRESSIONS/PLAN ASSESSMENT/PLAN: Ms. Rinaldi is a pleasant 32-year-old lady with a history of morbid obesity (statuspost gastric bypass), peptic ulcer disease, and atrial arrhythmias who is here for followup regarding atrial arrhythmias. I had an extensive discussion with her. Her symptoms now do not seem to correlate with the SVT burden. It is unclear to me whether or not this chest discomfort has any relation to her heart symptoms.Due to the fact that she has a history of bypass and gastric issues before, in addition to the factthat she is young and female, I believe that most of her chest discomfort is atypical in nature andis related to GI issues. I recommend her to follow up with GI for a possible endoscopy. Regarding the SVT, it seems to be only a few bursts. Her blood pressure has been mildly elevated inthe 140s-150s systolic range. Therefore, I recommended starting medical therapy with metoprolol. Wewill reevaluate her symptoms in a couple of months when we will make a decision whether or not she should perform an EP study/ablation. Regarding the incidental finding on transthoracic echo, due to the fact that her chamber sizes are within normal limits I believe that she does not have hemodynamically significant shunt although further workup is warranted. I recommend her to be cleared by GI first before we perform a MARK. She will contact us once she has been cleared so we can schedule her to have a transesophageal echo. SUMMARY/PLAN: 1. Start metoprolol 50 mg q.d. 2. Start Protonix q.d. Follow up with GI regarding GI issues. 3. We will schedule a MARK once the patient is cleared by GI. TODAYS ORDERS 1. Gastroenterology Consult Schedule MARCK- GERD 2. Return Visit 4 months Marshall Luo MD documented in this encounter Plan of Treatment Not on file documented as of this encounter Visit Diagnoses Not on filedocumented in this encounter Care Teams Spinning Lathe Operator Automatic Relationship Specialty Start Date End Date Abdelrahman Sanchez [address] [address] PCP - General 12/01/11 06/15/14 Abdelrahman Sanchez [facility] [place] [address] [place] [address] PCP - General Physician Display Coordinator 06/16/14 07/23/20 Blake Dalal PA-C [facility] [address] [place] [address] PCP - General 07/24/20 documented as of this encounter
--- OUTSIDE RECORDS SUMMARY | 2023-09-22 15:03 | XMS_ITS | Encounter Summary ---
Author Name Unknown Organization [facility] Address [address] [facility] [place] [address] Care Team Providers Care Cleaning Matron Name Role Phone Abdelrahman Sanchez Primary Care Provider [phone] Abdelrahman Sanchez Primary Care Provider [phone] Blake Dalal PA-C Primary Care Provider [phone] Encounter Details Date Type Department Care Team (Late st Contact Info) Description 05/11/2013 Office Visit-[facility] [place] [id number] [facility] [address] [place] [phone] Marshall Luo MD [address] [facility] [address] [place], [place] [id number] Social History Tobacco Use Types Packs/Day Years [...] Progress Notes * Marshall Luo MD - 05/17/2013 2:14 PM CST Progress Note Created by: Marshall Luo MD [facility] DATE: 05/11/2013 DELMY RINALDI DATE OF : 1980 AGE: [age] years old Referring Physician: ABDELRAHMAN SANCHEZ Referring Clinic: [facility] CURRENT DIAGNOSES 1. - Atrial Flutter, 427.32 2. - SVT (supraventricular tachycardia), 427.89 ALLERGIES tramadol HCl, Rash MEDICATIONS (prior to changes made today) 1. Lutera (28) 0.1-20 mg-mcg tablet, 1 p.o. daily 2. metoprolol succinate 50 mg tablet extended release 24 hr, 1 p.o. daily 3. Protonix 40 mg tablet,delayed release (DR/EC), 1 p.o. daily CHIEF COMPLAINTS SVT REASON FOR VISIT: Discussion of recent MARK results. HISTORY OF PRESENT ILLNESS: Ms. Rinaldi is a pleasant 32-year-old lady with a history of morbid obesity (status post gastric bypass surgery), previous GI bleed and SVT/atrial flutter in the past who is here for routine follow up regarding her MARK results. The patient was last seen by me on March 25. At that time a Holter showed that she had brief runs of SVT which did not correlate with her symptomatology. A transthoracic echo was suggestive of a PFO or possibly an ASD. She underwent a MARK on April 20 which confirmed a small secundum atrial septal defect with a negative bubble study. The echo also showed normal RV structure and size and normal RV function. Therefore, she is here today to discuss echo results. At the moment she is doing well. However, she informs me she is having constant episodes of chest discomfort. She describes a pressure, midsternal, without radiation. It lasts for an hour. She informs me of having these episodes two to three times a day. Regarding palpitations, she denies any recurrence of palpitations, lightheadedness, near-syncope, or syncopal episodes. She is currently taking metoprolol. PAST HISTORY Past Medical Illnesses: carpal tunnel syndrome Past Cardiac Illnesses: history of atrial flutter (?)/ SVT, PFO vs. ASD Surgeries/Procedures - General: PUD with GI bleed (2011), bypass gastric duodenal switch (2003; malnurished after surgery); back surgery (2005, 2009 and 2010) Cardiology Procedures-NonInvasive: echocardiogram Mar 2013 PMHx Echo Results: 03/2013: atrial septum is aneurysmal, mild (1+) tricuspid regurgitation, trace mitral & pulmonic regurgitation. Left Ventricular Ejection Fraction: EF<GT>55% by Echo -Mar 2013 EF<GT>55% by Echo -Mar 2013 FAMILY HISTORY: Father - hypertension; Mother - alive and well; SOCIAL HISTORY Alcohol Use - wine and 2 x week; Smoking - never smoked; Diet - energy drink 1-2 ,5 x week; Exercise - cardio 2-3 x week; Seat Belt Use - always; Occupation - Accounts recievable; Residence - lives with children; Place of - [place]; Hours Worked - 40 hours per week; REVIEW OF SYSTEMS GENERAL pt feels more tired INTEGUMENTARY denies any change in hair or nails, rashes, or skin lesions. EYES wears eye glasses/contact lenses EARS, NOSE, THROAT, MOUTH denies any hearing loss, epistaxis, hoarseness or difficulty speaking. RESPIRATORY dyspnea at rest, dyspnea with exertion, pt woke up out of sleep gasping for air CARDIOVASCULAR chest pain, everyday ABDOMINAL denies ulcer disease, hematochezia or melena. MUSCULOSKELETAL denies any history of arthritic symptoms or back problems. NEUROLOGICAL denies any history of recurrent headaches, strokes, TIA, or seizure disorder. PSYCHIATRIC positive for sleep disturbance ENDOCRINE denies any history of thyroid disease or diabetes mellitus. HEMATOLOGICAL/IMMUNOLOGIC denies any food allergies, seasonal allergies, bleeding disorders. PHYSICAL EXAMINATION VITAL SIGNS: Blood Pressure: 132/80Sitting, Right arm, large cuff Pulse- 82.00/min. Weight- 272.60 lbs. Height- 73 BMI Measurement: 36 CONSTITUTIONAL cooperative, alert and oriented,well developed, well [...] 50 mg tablet extended release 24 hr, 1 p.o. daily, #0 (Zero) MEDICATIONS REFILLED/STOPPED TODAY: metoprolol succinate 50 mg tablet extended release 24 hr 1/2 tab daily May increase to 1 Tab daily after one week. #90 (Ninety) Dosage Increased IMPRESSIONS/PLAN ASSESSMENT/PLAN: Ms. Rinaldi is a pleasant 32-year-old lady with a history of morbid obesity (statuspost gastric bypass surgery), previous GI bleed, and SVT/atrial flutter who is here for routine followup. She was recently found to have ASD. However, the ASD seems to be small and has no hemodynamiccompromise. Therefore, I do not recommend any closing or need for anticoagulation at this time. If anything, she may use baby aspirin for thromboembolic prevention, although I do not think it is necessary. Regarding her chest discomfort, I explained to her that it seems to be very atypical in nature and I do not believe it is cardiovascular in origin. Also, a recent EGD prior to MARK ruled out any GI issues. Therefore, I believe that most likely it is related to anxiety. I recommended her to go back to the PCP for further evaluation. However, she expressed that she would like to exclude any coronarydisease process. Therefore, for peace of mind I recommend having a stress echo done. PLAN: 1. Stress echo to rule out atypical chest pain. 2. Follow up with PCP to discuss anxiety issues. 3. Repeat echo in a year to reevaluate cardiac function. 4. Continue metoprolol indefinitely. Marshall Luo MD documented in this encounter Plan of Treatment Not on file documented as of this encounter Visit Diagnoses Not on filedocumented in this encounter Care Teams Cleaning Matron Relationship Specialty Start Date End Date Abdelrahman Sanchez [facility] [id number] [place] [id number] PCP - General 12/01/11 06/15/14 Abdelrahman Sanchez [facility] [address] [place] [address] PCP - General Physician Sole Edge Inker Machine 06/16/14 07/23/20 Blake Dalal PA-C [address] [address] PCP - General 07/24/20 documented as of this encounter
--- OUTSIDE RECORDS SUMMARY | 2023-09-22 15:03 | XMS_ITS | Clinical Summary ---
Author Name Unknown Organization [facility] Address [address] [place] [id number] Care Team Providers Care Remote Sensing Analyst Name Role Phone Blake Dalal PA-C Primary Care Provider [phone] Allergies Active Allergy Reactions Criticality Noted Date [...] Date Diagnosed Date Paroxysmal supraventricular tachycardia (H24) Family History Medical History Relation Comments Coronary Artery Disease Father Relation Status Comments Father Social History Tobacco Use Types Packs/Day Years [...] of Treatment Not on file Care Teams Remote Sensing Analyst Relationship Specialty Start Date End Date Blake Dalal PA-C [facility] [address] [place] [address] PCP - General 07/24/20
--- OUTSIDE RECORDS SUMMARY | 2023-09-22 15:05 | XMS_ITS | Continuity of Care Document ---
Author Name Unknown Organization [facility] Address [address] 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 Name Role Phone Teresa Gastelum DNP Unavailable Unavailable Allergies, Adverse Reactions, Alerts Substance Reaction Status Criticality tramadol rash Active No Information Medications Medication Instructions Dosage Effective Dates (start - stop) Status Comments oxycodone 10 mg tablet take 1 tablet by oral route every 4 hours as needed for chronic pain, max 5 tabs per day - Active trazodone 100 mg tablet take 1 tablet by oral route every day after meals 100 MG - Active Lexapro 20 mg tablet take 1 tablet by oral route every day 20 MG - Active lorazepam 0.5 mg tablet take 2 tablet by oral route 3 times every day as needed 1 MG - Active ondansetron 4 mg disintegrating tablet take 2 tablet by oral route every [address] on top of the tongue where they will dissolve, then swallow as needed 8 MG - Active HYDROXYZINE HCL (unknown strength) Not Available - Active medical cannabis ORAL - Active TYLENOL (unknown strength) take 1 tablet by oral route every 4 hours as needed Not Available - Active GAS-X (unknown strength) Not Available - Active MULTIVITAMINS (unknown strength) take 1 tablet by oral route every day with food Not Available - Active diltiazem ER 180 mg capsule,extended release take 1 capsule by oral route every day 180 MG - Active Senokot 8.6 mg tablet take 2 tablet by oral route every day as needed for constipation - Active Aspirin Childrens 81 mg chewable tablet chew 1 tablet by oral route every day 81 MG - Active oxycodone 10 mg tablet take 1 tablet by oral route every 4 hours as needed for chronic pain, max 5 tabs per day - No Longer Active Vistaril 25 mg capsule take 2 capsule by oral route every day as needed 50 MG - No Longer Active melatonin 1 mg tablet take 2 tablets by oral route every bedtime 2 tablets - No Longer Active Procedures Procedure Date OFFICE/OUTPATIENT VISIT, EST Drug Urine Toxology With Chromatography Drug test def 15-21 classes OFFICE VISIT, EST TELEMEDICINE OFFICE VISIT, EST TELEMEDICINE OFFICE/OUTPATIENT VISIT, EST Drug test def 8-14 classes Drug Urine Toxology With Chromatography OFFICE VISIT, EST TELEMEDICINE OFFICE VISIT, EST TELEMEDICINE OFFICE VISIT, EST TELEMEDICINE Drug Urine Toxology With Chromatography Drug test def 8-14 classes OFFICE/OUTPATIENT VISIT, EST OFFICE VISIT, EST TELEMEDICINE OFFICE VISIT, EST TELEMEDICINE Drug Urine Toxology With Chromatography Drug test def 8-14 classes OFFICE/OUTPATIENT VISIT, EST OFFICE VISIT, EST TELEMEDICINE Foll-up eval q3mo opiod tx OFFICE VISIT, EST TELEMEDICINE Foll-up eval q3mo opiod tx OFFICE VISIT, EST TELEMEDICINE Foll-up eval q3mo opiod tx OFFICE/OUTPATIENT VISIT, EST Drug Urine Toxology With Chromatography Drug test def 8-14 classes Foll-up eval q3mo opiod tx OFFICE VISIT, EST TELEMEDICINE Foll-up eval q3mo opiod tx OFFICE VISIT, EST TELEMEDICINE Foll-up eval q3mo opiod tx OFFICE VISIT, EST TELEMEDICINE Foll-up eval q3mo opiod tx OFFICE/OUTPATIENT VISIT, EST Drug test def 8-14 classes Drug Urine Toxology With Chromatography Foll-up eval q3mo opiod tx OFFICE VISIT, EST TELEMEDICINE Foll-up eval q3mo opiod tx OFFICE VISIT, EST TELEMEDICINE Foll-up eval q3mo opiod tx OFFICE VISIT, EST TELEMEDICINE Foll-up eval q3mo opiod tx OFFICE VISIT, EST TELEMEDICINE Drug Urine Toxology With Chromatography Drug test def 8-14 classes OFFICE/OUTPATIENT VISIT, EST Foll-up eval q3mo opiod tx Foll-up eval q3mo opiod tx OFFICE VISIT, EST TELEMEDICINE INTERLAMINAR CRV OR THRC Foll-up eval q3mo opiod tx OFFICE/OUTPATIENT VISIT, EST Foll-up eval q3mo opiod tx OFFICE/OUTPATIENT VISIT, EST Drug Urine Toxology With Chromatography Drug test def 8-14 classes Foll-up eval q3mo opiod tx OFFICE VISIT, EST TELEMEDICINE Foll-up eval q3mo opiod tx OFFICE VISIT, EST TELEMEDICINE Foll-up eval q3mo opiod tx OFFICE VISIT, EST TELEMEDICINE Foll-up eval q3mo opiod tx OFFICE VISIT, EST TELEMEDICINE 21 ROUTINE BLOOD DRAW Drug test def 8-14 classes Drug Urine Toxology With Chromatography Foll-up eval q3mo opiod tx DAST 15-30 MIN OFFICE/OUTPATIENT VISIT, EST Foll-up eval q3mo opiod tx OFFICE VISIT, EST TELEMEDICINE Foll-up eval q3mo opiod tx OFFICE VISIT, EST TELEMEDICINE Foll-up eval q3mo opiod tx OFFICE VISIT, EST TELEMEDICINE ROUTINE BLOOD DRAW Drug Urine Toxology With Chromatography Drug test def 8-14 classes Foll-up eval q3mo opiod tx OFFICE VISIT, EST TELEMEDICINE Foll-up eval q3mo opiod tx OFFICE VISIT, EST TELEMEDICINE PT EVAL MOD COMPLEX 30 MIN Foll-up eval q3mo opiod tx OFFICE/OUTPATIENT VISIT, EST Foll-up eval q3mo opiod tx OFFICE VISIT, EST TELEMEDICINE Lower Back LSO Brace ORTHOTIC MGMT AND TRAINING Initial Encou nter No Charge For Visit Per Prov No Charge For Visit Per Prov IMPLANT NEUROELECTRODES ASC IMPLANT NEUROELECTRODES ASC ANALYZE NEUROSTIM, COMPLEX Foll-up eval q3mo opiod tx OFFICE VISIT, EST TELEMEDICINE Foll-up eval q3mo opiod tx OFFICE/OUTPATIENT VISIT, EST Telehealth Foll-up eval q3mo opiod tx OFFICE VISIT, EST TELEMEDICINE Foll-up eval q3mo opiod tx OFFICE VISIT, EST TELEMEDICINE 20 Foll-up eval q3mo opiod tx OFFICE VISIT, EST TELEMEDICINE 20 Foll-up eval q3mo opiod tx OFFICE VISIT, EST TELEMEDICINE 20 Foll-up eval q3mo opiod tx OFFICE VISIT, EST TELEMEDICINE 20 Foll-up eval q3mo opiod tx OFFICE VISIT, EST TELEMEDICINE 20 Foll-up eval q3mo opiod tx OFFICE VISIT, EST TELEMEDICINE 20 Foll-up eval q3mo opiod tx OFFICE VISIT, EST TELEMEDICINE SCS Trial Procedure Ordered Foll-up eval q3mo opiod tx OFFICE VISIT, EST TELEMEDICINE 20 Foll-up eval q3mo opiod tx OFFICE VISIT, EST TELEMEDICINE 20 Foll-up eval q3mo opiod tx OFFICE/OUTPATIENT VISIT, EST OFFICE/OUTPATIENT VISIT, EST Foll-up eval q3mo opiod tx OFFICE/OUTPATIENT VISIT, EST Foll-up eval q3mo opiod tx OFFICE/OUTPATIENT VISIT, EST Foll-up eval q3mo opiod tx OFFICE/OUTPATIENT VISIT, EST OFFICE/OUTPATIENT VISIT, EST Psych Dx Eval OFFICE/OUTPATIENT VISIT, EST Drug test def 22+ classes Drug Urine Toxology With Chromatography OFFICE/OUTPATIENT VISIT, EST OFFICE/OUTPATIENT VISIT, EST Psych Dx Eval OFFICE/OUTPATIENT VISIT, EST OFFICE/OUTPATIENT VISIT, EST OFFICE/OUTPATIENT VISIT, EST Drug test def 22+ classes Drug Urine Toxology With Chromatography OFFICE/OUTPATIENT VISIT, EST OFFICE/OUTPATIENT VISIT, EST OFFICE/OUTPATIENT VISIT, EST OFFICE/OUTPATIENT VISIT, EST OFFICE/OUTPATIENT VISIT, EST Ketorolac tromethamine inj OFFICE/OUTPATIENT VISIT, EST OFFICE/OUTPATIENT VISIT, EST OFFICE/OUTPATIENT VISIT, EST OFFICE/OUTPATIENT VISIT, EST Disabilty Reports Forms OFFICE/OUTPATIENT VISIT, EST Facet Jt Inj Lumb BILATERAL Surgical trays FLUOROGUIDE FOR SPINE INJECT Lidocaine injection OFFICE/OUTPATIENT VISIT, EST OFFICE/OUTPATIENT VISIT, EST OFFICE/OUTPATIENT VISIT, EST OFFICE/OUTPATIENT VISIT, EST OFFICE/OUTPATIENT VISIT, EST OFFICE/OUTPATIENT VISIT, EST OFFICE/OUTPATIENT VISIT, EST OFFICE/OUTPATIENT VISIT, EST OFFICE/OUTPATIENT VISIT, EST OFFICE/OUTPATIENT VISIT, EST OFFICE/OUTPATIENT VISIT, EST OFFICE/OUTPATIENT VISIT, EST OFFICE/OUTPATIENT VISIT, EST OFFICE/OUTPATIENT VISIT, EST OFFICE/OUTPATIENT VISIT, EST Psych Dx Eval OFFICE/OUTPATIENT VISIT, EST INJ FORAMEN EPIDURAL L/S BILATERAL Surgical trays FLUOROGUIDE FOR SPINE INJECT Dexamethasone sodium phos Lidocaine injection Inj midazolam hydrochloride Fentanyl citrate injeciton Omnipaque 240 50ml Omnipaque 240 Per 50ml MOD CS BY SAME PHYS, 5 YRS + PT EVALUATION HOME TENS UNIT AND MANUAL ELECTRICAL STI MULATION MANUAL THERAPY OFFICE/OUTPATIENT VISIT, EST OFFICE CONSULTATION Results Test Name Date and Time Measure Units Reference Range Abnormal Flag Status Comments Panel Description: URINE DRUG SCREEN Preliminar y Image UDT 1 AMPHETAMINE 12:27:00 -99 (Negativ e) ng/mL 0 Preliminary Performed by:[facility] (1) BARBITURATES 12:27:00 -94 (Negativ e) ng/mL 0 Preliminary Performed by:[facility] (1) COCAINE 12:27:00 -101 (Negativ e) ng/mL 0 Preliminary Performed by:[facility] (1) METHADONE 12:27:00 -93 (Negativ e) ng/mL 0 Preliminary Performed by:[facility] (1) OPIATES 12:27:00 -7 (Negativ e) ng/mL 0 Preliminary Performed by:[facility] (1) BENZODIAZEPINES 12:27:00 -87 (Negativ e) ng/mL 0 Preliminary Performed by:[facility] (1) PHENCYCLIDINE - PCP 12:27:00 -102.00 (Negativ e) ng/mL 0.00 Preliminary Performed by:[facility] (1) CANNABINOIDS - THC - MARIJUANA 12:27:00 84 (Positiv e) ng/mL 0 A Preliminary Performed by:[facility] (1) ECSTASY - MDMA 12:27:00 1 (Positiv e) ng/mL 0 A Preliminary Performed by:[facility] (1) OXYCODONE 12:27:00 154 (Positiv e) ng/mL 0 A Preliminary Performed by:[facility] (1) ETHYL ALCOHOL 12:27:00 5 (Negativ e) mg/dL 100 Preliminary Performed by:[facility] (1) URINE SPECIFIC GRAVITY 12:27:00 1.026 (Accepta ble) 1.003 - 1.035 Preliminary Performed by:[facility] (1) URINE PH 12:27:00 5.6 (Accepta ble) 4.4 - 9.0 Preliminary Performed by:[facility] (1) URINE CREATININE 12:27:00 225 (Accepta ble) mg/dL 20 - 400 Preliminary Performed by:[facility] (1) Panel Description: URINE DRUG SCREEN Final AMPHETAMINE 01:30:00 -99 (Negativ e) ng/mL 0 Final Performed by:[facility] (1) BARBITURATES 01:30:00 -94 (Negativ e) ng/mL 0 Final Performed by:[facility] (1) COCAINE 01:30:00 -101 (Negativ e) ng/mL 0 Final Performed by:[facility] (1) METHADONE 01:30:00 -93 (Negativ e) ng/mL 0 Final Performed by:[facility] (1) OPIATES 01:30:00 -7 (Negativ e) ng/mL 0 Final Performed by:[facility] (1) BENZODIAZEPINES 01:30:00 -87 (Negativ e) ng/mL 0 Final Performed by:[facility] (1) PHENCYCLIDINE - PCP 01:30:00 -102.00 (Negativ e) ng/mL 0.00 Final Performed by:[facility] (1) CANNABINOIDS - THC - MARIJUANA 01:30:00 84 (Positiv e) ng/mL 0 A Final Performed by:[facility] (1) ECSTASY - MDMA 01:30:00 1 (Positiv e) ng/mL 0 A Final Performed by:[facility] (1) OXYCODONE 01:30:00 154 (Positiv e) ng/mL 0 A Final Performed by:[facility] (1) ETHYL ALCOHOL 01:30:00 5 (Negativ e) mg/dL 100 Final Performed by:[facility] (1) URINE SPECIFIC GRAVITY 01:30:00 1.026 (Accepta ble) 1.003 - 1.035 Final Performed by:[facility] (1) URINE PH 01:30:00 5.6 (Accepta ble) 4.4 - 9.0 Final Performed by:[facility] (1) URINE CREATININE 01:30:00 225 (Accepta ble) mg/dL 20 - 400 Final Performed by:[facility] (1) Panel Description: Full Confirmation Panel Alana l Image UDT 2 Alprazolam 01:30:00 < 20 (CONSIST ENT) ng/mL 20.0 Final Performed by:[facility] (1) 0-Yvsiq-Lsydnjvaas 01:30:00 < 40 (CONSIST ENT) ng/mL 40.0 Final Performed by:[facility] (1) Nordiazepam 01:30:00 < 20 (CONSIST ENT) ng/mL 20.0 Final Performed by:[facility] (1) Temazepam 01:30:00 < 20 (CONSIST ENT) ng/mL 20.0 Final Performed by:[facility] (1) Lorazepam 01:30:00 < 20 (INCONSI STENT) ng/ml 20.0 A Final Performed by:[facility] (1) Amphetamine 01:30:00 < 50 (CONSIST ENT) ng/mL 50.0 Final Performed by:[facility] (1) Methamphetamine 01:30:00 < 50 (CONSIST ENT) ng/mL 50.0 Final Performed by:[facility] (1) Methylphenidate 01:30:00 < 40 (CONSIST ENT) ng/mL 40.0 Final Performed by:[facility] (1) MDMA 01:30:00 < 50 (CONSIST ENT) ng/mL 50.0 Final Performed by:[facility] (1) Buprenorphine 01:30:00 < 10 (CONSIST ENT) ng/mL 10.0 Final Performed by:[facility] (1) Norbuprenorphine 01:30:00 < 40 (CONSIST ENT) ng/mL 40.0 Final Performed by:[facility] (1) Naloxone 01:30:00 < 20 (CONSIST ENT) ng/mL 20.0 Final Performed by:[facility] (1) Propoxyphene 01:30:00 < 20 (CONSIST ENT) ng/mL 20.0 Final Performed by:[facility] (1) EDDP 01:30:00 < 20 (CONSIST ENT) ng/mL 20.0 Final Performed by:[facility] (1) Carisoprodol 01:30:00 < 50 (CONSIST ENT) ng/mL 50.0 Final Performed by:[facility] (1) Meprobamate 01:30:00 < 50 (CONSIST ENT) ng/mL 50.0 Final Performed by:[facility] (1) Zolpidem 01:30:00 < 20 (CONSIST ENT) ng/mL 20.0 Final Performed by:[facility] () Codeine 01:30:00 < 50 (CONSIST ENT) ng/mL 50.0 Final Performed by:[facility] (1) Morphine 01:30:00 < 20 (CONSIST ENT) ng/mL 20.0 Final Performed by:[facility] (1) Hydrocodone 01:30:00 < 20 (CONSIST ENT) ng/mL 20.0 Final Performed by:[facility] () Hydromorphone 01:30:00 < 20 (CONSIST ENT) ng/mL 20.0 Final Performed by:[facility] (1) Oxycodone 01:30:00 > 1000 (CONSIST ENT) ng/mL 50.0 Final Performed by:[facility] () Oxymorphone 01:30:00 > 800 (CONSIST ENT) ng/mL 20.0 Final Performed by:[facility] (1) Thebaine 01:30:00 < 10 (CONSIST ENT) ng/mL 10.0 Final Performed by:[facility] (1) Norfentanyl 01:30:00 < 20 (CONSIST ENT) ng/mL 20.0 Final Performed by:[facility] (1) 6-Acetyl Morphine 01:30:00 < 20 (CONSIST ENT) ng/mL 20.0 Final Performed by:[facility] (1) Phencyclidine 01:30:00 < 20 (CONSIST ENT) ng/mL 20.0 Final Performed by:[facility] (1) Ketamine 01:30:00 < 40 (CONSIST ENT) ng/mL 40.0 Final Performed by:[facility] (1) Benzoylecgonine(Co c Met) 01:30:00 < 10 (CONSIST ENT) ng/ml 20.0 Final Performed by:[facility] (1) Nortriptyline 01:30:00 < 50 (CONSIST ENT) ng/mL 50.0 Final Performed by:[facility] (1) Amtriptyline 01:30:00 < 50 (CONSIST ENT) ng/mL 50.0 Final Performed by:[facility] (1) Fentanyl 01:30:00 < 10 (CONSIST ENT) ng/mL 10.0 Final Performed by:[facility] (1) Norfentanyl 01:30:00 < 20 (CONSIST ENT) ng/mL 20.0 Final Performed by:[facility] (1) LSD 01:30:00 < 10 (CONSIST ENT) ng/ml 10.0 Final Performed by:[facility] (1) O Desmethyl Cis Tramadol 01:30:00 < 50 (CONSIST ENT) ng/ml 50.0 Final Performed by:[facility] (1) Zolpidem 01:30:00 < 20 (CONSIST ENT) ng/mL 20.0 Final Performed by:[facility] (1) Tapentadol 01:30:00 < 40 (CONSIST ENT) ng/mL 40.0 Final Performed by:[facility] (1) Pregabalin 01:30:00 < 50 (CONSIST ENT) ng/mL 50.0 Final Performed by:[facility] (1) Advance Directives Directive Yes / No Effective Date File Name No Information Encounters Encounter Description Practice Location Reason(s) For Visit Diagnoses Date Provider Providers Copied on Encounter OFFICE/OUTPAT IENT VISIT, EST [facility], [address] [place] [address], [id number] , [place] tel:[phone] [facility] Back Pain (chief complaint) Major depressive disorder, single episode, unspecifiedCh ronic pain syndromeConst ipationRadicu lopathy, thoracolumbar regionPostlam inectomy syndrome, not elsewhere classifiedHea dache, unspecifiedLo ng term (current) use of opiate analgesicOthe r nursing home (current) drug therapyEncoun ter for therapeutic drug level monitoringOth er spondylosis, cervical region 4 Ximena Teresa. [address] [place] [address], [id number], [place]. tel:[phone] aspirin prescriber: ELSY Aguilar [address], [place], [address]. tel:[phone] [facility] Provider: [employer], [address] [place], [address]. tel:[phone] OFFICE VISIT, EST TELEMEDICINE [facility], [address] [place], [place], [id number] , [place] tel:[phone] [facility] Back Pain (chief complaint) Major depressive disorder, single episode, unspecifiedCh ronic pain syndromeConst ipationOther spondylosis with radiculopathy , cervical regionRadicul opathy, thoracolumbar regionPostlam inectomy syndrome, not elsewhere classifiedHea dache, unspecifiedLo ng term (current) use of opiate analgesicOthe r termite control representative (current) drug therapy 4 Ximena Teresa. [address] [place] [address], [id number], [place]. tel:[phone] aspirin prescriber: ELSY Aguilar [address], [place], [address]. tel:[phone] OFFICE VISIT, [facility] TELEMEDICINE [facility], [address] [place] [address], [id number] , [place] tel:[phone] [facility] Back Pain (chief complaint) Major depressive disorder, single episode, unspecifiedCh ronic pain syndromeConst ipationOther spondylosis with radiculopathy , cervical regionRadicul opathy, thoracolumbar regionPostlam inectomy syndrome, not elsewhere classifiedLon g term (current) use of opiate analgesicOthe r termite control representative (current) drug therapyHeadac he, unspecified 4 Nirav Moore. [address] [facility] [address], [place], [id number], [place]. tel:[phone] Referring Provider: [employer], [address] [place] [address], [id number]. tel:[phone] OFFICE/OUTPAT IENT VISIT, [facility], [address] [place] [address], [id number] , [place] tel:[phone] [facility] Back Pain (chief complaint) Major depressive disorder, single episode, unspecifiedCh ronic pain syndromeConst ipationOther spondylosis with radiculopathy , cervical regionRadicul opathy, thoracolumbar regionPostlam inectomy syndrome, not elsewhere classifiedLon g term (current) use of opiate analgesicOthe r nursing home (current) drug therapyEncoun ter for therapeutic drug level monitoring 4 Nirav Teresa. [address] [facility] [address] [facility] [address], [place], [id number], [place]. tel:[phone] Referring Provider: [employer], [address] [place] [address], [id number]. tel:[phone] OFFICE VISIT, [facility], [address] [place] [address], [id number] , [place] tel:[phone] [facility] Back Pain (chief complaint) Major depressive disorder, single episode, unspecifiedCh ronic pain syndromeConst ipationOther spondylosis with radiculopathy , cervical regionRadicul opathy, thoracolumbar regionPostlam inectomy syndrome, not elsewhere classifiedLon g term (current) use of opiate analgesicOthe r nursing home (current) drug therapy 3 Nirav Moore. [address], [id number], [place]. tel:[phone] OFFICE VISIT, EST TELEMEDICINE [facility], [address] [place] [address], [id number] , [place] tel:[phone] [facility] Back Pain (chief complaint) Major depressive disorder, single episode, unspecifiedCh ronic pain syndromeConst ipationOther spondylosis with radiculopathy , cervical regionRadicul opathy, thoracolumbar regionPostlam inectomy syndrome, not elsewhere classifiedLon g term (current) use of opiate analgesicOthe r nursing home (current) drug therapy 3 Nirav Moore. [address], [id number], [place]. tel:[phone] Referring Provider: [employer], [address] [place], [address]. tel:[phone] OFFICE VISIT, EST TELEMEDICINE [facility], [address] [place] [address], [id number] , [place] tel:[phone] [facility] Back Pain (chief complaint) Major depressive disorder, single episode, unspecifiedCh ronic pain syndromeConst ipationOther spondylosis with radiculopathy , cervical regionRadicul opathy, thoracolumbar regionPostlam inectomy syndrome, not elsewhere classifiedLon g term (current) use of opiate analgesicOthe r nursing home (current) drug therapy 3 Nirav Moore. [address], [id number], [place]. tel:[phone] [facility], [address] [place] [address], [id number] , [place] tel:[phone] [facility] No Information 3 iNrav Moore. [address] [address], [place], [id number], [place]. tel:[phone] Referring Provider: [employer], [address] [place] [address], [id number]. tel:[phone] OFFICE/OUTPAT IENT VISIT, [facility], [address] [place] [address], [id number] , [place] tel:[phone] [facility] Widespread pain (chief complaint) Major depressive disorder, single episode, unspecifiedCh ronic pain syndromeConst ipationOther spondylosis with radiculopathy , cervical regionRadicul opathy, thoracolumbar regionPostlam inectomy syndrome, not elsewhere classifiedLon g term (current) use of opiate analgesicOthe r nursing home (current) drug therapyEncoun ter for therapeutic drug level monitoring 3 Nirav Moore. [address], [place], [id number], [place]. tel:[phone] Referring Provider: [employer], [address] [place] [address], [id number]. tel:[phone] OFFICE VISIT, [facility] TELEMEDICINE [facility], [address] [place] [address], [id number] , [place] tel:[phone] [facility] Widespread pain (chief complaint) Major depressive disorder, single episode, unspecifiedCh ronic pain syndromeConst ipationOther spondylosis with radiculopathy , cervical regionRadicul opathy, thoracolumbar regionPostlam inectomy syndrome, not elsewhere classifiedLon g term (current) use of opiate analgesic 3 Tere Jaimes. [address] [facility] [address] [facility] [address], [place], [id number], [place]. tel:[phone] [facility], [address] [place] [address], [id number] , [place] tel:[phone] [facility] Other spondylosis with radiculopathy , cervical regionRadicul opathy, thoracolumbar region 3 Chuckie Steve. [address] [place] [address], [id number], [place]. tel:[phone] OFFICE VISIT, EST TELEMEDICINE [facility], [address] [place] [address], [id number] , [place] tel:[phone] [facility] Widespread pain (chief complaint) Major depressive disorder, single episode, unspecifiedCh ronic pain syndromeConst ipationOther spondylosis with radiculopathy , cervical regionRadicul opathy, thoracolumbar regionPostlam inectomy syndrome, not elsewhere classifiedLon g term (current) use of opiate analgesic 3 Nyongesa Teresa. [address] [facility] [address], [place], [id number], [place]. tel:[phone] Referring Provider: [employer], [address] [place] [address], [id number]. tel:[phone] [facility], [address] [place] [address], [id number] , [place] tel:[phone] [facility] No Information 3 Nyongesa Teresa. [address] [facility] [address], [place], [id number], [place]. tel:[phone] Referring Provider: [employer], [address] [place] [address], [id number]. tel:[phone] OFFICE/OUTPAT IENT VISIT, EST [facility], [address] [place] [address], [id number] , [place] tel:[phone] [facility] Widespread pain (chief complaint) Major depressive disorder, single episode, unspecifiedCh ronic pain syndromeConst ipationOther spondylosis with radiculopathy , cervical regionRadicul opathy, thoracolumbar regionPostlam inectomy syndrome, not elsewhere classifiedLon g term (current) use of opiate analgesicEnco unter for therapeutic drug level monitoring 3 Nyongesa Teresa. [address] [facility] [address], [place], [id number], [place]. tel:[phone] Referring Provider: [employer], [address] [place] [address], [id number]. tel:[phone] OFFICE VISIT, EST TELEMEDICINE [facility], [address] [place] [address], [id number] , [place] tel:[phone] [facility] Widespread pain (chief complaint) Major depressive disorder, single episode, unspecifiedCh ronic pain syndromeConst ipationOther spondylosis with radiculopathy , cervical regionRadicul opathy, thoracolumbar regionPostlam inectomy syndrome, not elsewhere classifiedLon g term (current) use of opiate analgesic 3 Nyongesa Teresa. [address], [id number], [place]. tel:[phone] OFFICE VISIT, EST TELEMEDICINE [facility], [address] [place] [address], [id number] , [place] [phone] [facility] Widespread pain (chief complaint) Chronic pain syndromeConst ipationOther spondylosis with radiculopathy , cervical regionRadicul opathy, thoracolumbar regionPostlam inectomy syndrome, not elsewhere classifiedLon g term (current) use of opiate analgesicMajo r depressive disorder, single episode, unspecified Apr- 3 Nyongesa Teresa. [address], [id number], [place]. tel:[phone] Referring Provider: Power Warner, [address] [place] [address], [address]. tel:[phone] OFFICE VISIT, EST TELEMEDICINE [facility], [address] [place] [address], [id number] , [place] tel:[phone] [facility] Widespread pain (chief complaint) Chronic pain syndromeConst ipationOther spondylosis with radiculopathy , cervical regionRadicul opathy, thoracolumbar regionPostlam inectomy syndrome, not elsewhere classifiedLon g term (current) use of opiate analgesic Jul- 3 Nyongesa Teresa. [address]34 [facility] [address], [id number], [place]. tel:[phone] OFFICE/OUTPAT IENT VISIT, EST [facility], [address] [place] [address], [id number] , [place] tel:[phone] [facility] Widespread pain (chief complaint) ConstipationO ther spondylosis with radiculopathy , cervical regionPostlam inectomy syndrome, not elsewhere classifiedLon g term (current) use of opiate analgesicRadi culopathy, thoracolumbar regionChronic pain syndrome 3 Nyongesa Teresa. 99749 [facility] [address], [place], [id number], [place]. tel:[phone] Referring Provider: Power Warner, [address] [place] [address], [address]. tel:[phone] [facility], [address] [place] [address], [id number] , [place] tel:[phone] [facility] [place] No Information 3 Nyalex Teresa. [address] [facility] [address], [place], [id number], [place]. tel:[phone] OFFICE VISIT, EST TELEMEDICINE [facility], [address] [place] [address], [id number] , [place] tel:[phone] [facility] Widespread pain (chief complaint) ConstipationO ther spondylosis with radiculopathy , cervical regionPain in thoracic spinePostlami nectomy syndrome, not elsewhere classifiedLon g term (current) use of opiate analgesic 3 Latishaongesa Teresa. [address]7810 [facility] [address], [place], [id number], [place]. tel:[phone] OFFICE VISIT, EST TELEMEDICINE [facility], [address] [place] [address], [id number] , [place] tel:[phone] [facility] [place] Widespread pain (chief complaint) ConstipationO ther spondylosis with radiculopathy , cervical regionPain in thoracic spinePostlami nectomy syndrome, not elsewhere classifiedLon g term (current) use of opiate analgesic 2 Nyongesa Teresa. [address], [id number], [place]. tel:[phone] OFFICE VISIT, [facility] TELEMEDICINE [facility], [address] [place] [address], [id number] , [place] tel:[phone] [facility] Widespread pain (chief complaint) ConstipationO ther spondylosis with radiculopathy , cervical regionPain in thoracic spinePostlami nectomy syndrome, not elsewhere classifiedLon g term (current) use of opiate analgesic 2 Nyongesa Teresa. [address], [id number], [place]. tel:[phone] Referring Provider: Power Warner, [address] [place] [address], [address]. tel:[phone] OFFICE/OUTPAT IENT VISIT, [facility], [address] [place] [address], [id number] , [place] tel:[phone] [facility] Widespread pain (chief complaint) ConstipationO ther spondylosis with radiculopathy , cervical regionPain in thoracic spinePostlami nectomy syndrome, not elsewhere classifiedLon g term (current) use of opiate analgesicEnco unter for therapeutic drug level monitoring 2 Nyongesa Teresa. [address], [id number], [place]. tel:[phone] Referring Provider: Power Warner, [address] [place] [address], [address]. tel:[phone] [facility], [address] [place] [address], [id number] , [place] tel:[phone] [facility] No Information 2 Nyongesa Teresa. [address], [id number], [place]. tel:[phone] Referring Provider: Power Warner, [address] [place] [address], [address]. tel:[phone] OFFICE VISIT, EST TELEMEDICINE [facility], [address] [place], [place], [id number] , [place] tel:[phone] [facility] [place] Widespread pain (chief complaint) ConstipationO ther spondylosis with radiculopathy , cervical regionPain in thoracic spinePostlami nectomy syndrome, not elsewhere classifiedLon g term (current) use of opiate analgesic Sep-2 2 Nyongesa Teresa. [address], [id number], [place]. tel:[phone] OFFICE VISIT, EST TELEMEDICINE [facility], [address] [place] [address], [id number] , [place] tel:[phone] [facility] [place] Widespread pain (chief complaint) ConstipationO ther spondylosis with radiculopathy , cervical regionPain in thoracic spinePostlami nectomy syndrome, not elsewhere classifiedLon g term (current) use of opiate analgesic Dec- 2 Nyongesa Teresa. [address], [id number], [place]. tel:[phone] OFFICE VISIT, EST TELEMEDICINE [facility], [address] [place] [address], [id number] , [place] tel:[phone] [facility] [place] Widespread pain (chief complaint) ConstipationO ther spondylosis with radiculopathy , cervical regionPain in thoracic spinePostlami nectomy syndrome, not elsewhere classifiedLon g term (current) use of opiate analgesic Nov- 2 Nyongesa Teresa. [address], [id number], [place]. tel:[phone] OFFICE VISIT, EST TELEMEDICINE [facility], [address] [place], [place], [id number] , [place] tel:[phone] [facility] [place] Widespread pain (chief complaint) ConstipationO ther spondylosis with radiculopathy , cervical regionPain in thoracic spinePostlami nectomy syndrome, not elsewhere classifiedLon g term (current) use of opiate analgesic Cameron- 2 Nyongesa Teresa. [address] [facility] [address], [place], [place], [id number], [place]. tel:[phone] [facility], [address] [place] [address], [id number] , [place] tel:[phone] [facility] [place] No Information 2 Verdin Amadeo. [employer], [address], [place], [address], [place]. tel:[phone] OFFICE/OUTPAT IENT VISIT, [facility], [address] [place] [address], [id number] , [place] tel:[phone] [facility] Widespread pain (chief complaint) ConstipationO ther spondylosis with radiculopathy , cervical regionPain in thoracic spinePostlami nectomy syndrome, not elsewhere classifiedLon g term (current) use of opiate analgesicEnco unter for therapeutic drug level monitoring 2 Verdin Amadeo. [employer], [address], [place], [address], [place]. tel:[phone] Referring Provider: Power Warner, [address] [place] [address], [address]. tel:[phone] OFFICE VISIT, [facility], [address] [place] [address], [id number] , [place] [phone] [facility] Widespread pain (chief complaint) ConstipationO ther spondylosis with radiculopathy , cervical regionPain in thoracic spinePostlami nectomy syndrome, not elsewhere classifiedLon g term (current) use of opiate analgesic Aug- 2 Nyongesa Teresa. [address] [facility] [address], [place], [place], [id number], [place]. tel:[phone] [facility], [address] [place] [address], [id number] , [place] [phone] [facility] [place] Intervertebra l disc disorders with radiculopathy , thoracolumbar region Apr- 2 Chuckie Steve. [address] [place] [address], [id number], [place]. tel:[phone] Referring Provider: Power Warner, [address] [place] [address], [address]. tel:[phone] [facility], [address] [place] [address], [id number] , [place] tel:[phone] [facility] Intervertebra l disc disorders with radiculopathy , thoracolumbar region Apr-0 2 Carranzaal Jaimes. 1455 [facility] [address], [place], [id number], [place]. tel:[phone] OFFICE/OUTPAT IENT VISIT, [facility], [address] [place] [address], [id number] , [place] tel:[phone] [facility] Widespread pain (chief complaint) ConstipationO ther spondylosis with radiculopathy , cervical regionPostlam inectomy syndrome, not elsewhere classifiedPai n in thoracic spineLong term (current) use of opiate analgesic 2 Tere Jaimes. 1455 [facility] [address], [place], [id number], [place]. tel:[phone] Referring Provider: Power Warner, [address] [place] [address], [address]. tel:[phone] OFFICE/OUTPAT IENT VISIT, [facility], [address] [place] [address], [id number] , [place] tel:[phone] [facility] Widespread pain (chief complaint) Other spondylosis with radiculopathy , cervical regionOther intervertebra l disc degeneration, lumbar regionConstip ationPain in thoracic spineLong term (current) use of opiate analgesicPost laminectomy syndrome, not elsewhere classifiedEnc ounter for therapeutic drug level monitoring 2 Nirav Moore. [address] [facility] [address], [place], [id number], [place]. tel:[phone] Referring Provider: Pippa Espinoza - [place] [address] [place], [address]. tel:[phone] [facility], [address] [place] [address], [id number] , [place] tel:[phone] [facility] No Information 2 Nirav Teresa. [address], [id number], [place]. tel:[phone] OFFICE VISIT, EST TELEMEDICINE [facility], [address] [place] [address], [id number] , [place] tel:[phone] [facility] Widespread pain (chief complaint) intermediate manager (current) use of opiate analgesicPost laminectomy syndrome, not elsewhere classifiedOth er spondylosis with radiculopathy , cervical regionOther intervertebra l disc degeneration, lumbar regionConstip ationPain in thoracic spine 2 Ximena Teresa. [address], [id number], [place]. tel:[phone] Referring Provider: Pippa Espinoza [address], [address]. tel:[phone] OFFICE VISIT, EST TELEMEDICINE [facility], [address] [place] [address], [id number] , [place] tel:[phone] [facility] Widespread pain (chief complaint) intermediate manager (current) use of opiate analgesicPost laminectomy syndrome, not elsewhere classifiedOth er spondylosis with radiculopathy , cervical regionOther intervertebra l disc degeneration, lumbar regionConstip ationPain in thoracic spine 1 Ximena Teresa. [address], [id number], [place]. tel:[phone] OFFICE VISIT, EST TELEMEDICINE [facility], [address] [place] [address], [id number] , [place] tel:[phone] [facility] Widespread pain (chief complaint) long-term (current) use of opiate analgesicPost laminectomy syndrome, not elsewhere classifiedOth er spondylosis with radiculopathy , cervical regionOther intervertebra l disc degeneration, lumbar regionConstip ationPain in thoracic spine 1 Latishapaulie Moore. [address], [id number], [place]. tel:[phone] OFFICE VISIT, EST TELEMEDICINE [facility], [address] [place] [address], [id number] , [place] tel:[phone] [facility] Widespread pain (chief complaint) intermediate manager (current) use of opiate analgesicPost laminectomy syndrome, not elsewhere classifiedOth er spondylosis with radiculopathy , cervical regionOther intervertebra l disc degeneration, lumbar regionConstip ationPain in thoracic spine 1 Nirav Moore. [address], [id number], [place]. tel:[phone] Referring Provider: Power Warner, [address] [place] [address], [address]. tel:[phone] [facility], [address] [place] [address], [id number] , [place] tel:[phone] [facility] No Information 1 Nirav Moore. [address], [id number], [place]. tel:[phone] Referring Provider: Power Warner, [address] [place] [address], [address]. tel:[phone] OFFICE/OUTPAT IENT VISIT, EST [facility], [address] [place] [address], [id number] , [place] tel:[phone] [facility] Widespread pain (chief complaint) intermediate manager (current) use of opiate analgesicPost laminectomy syndrome, not elsewhere classifiedOth er spondylosis with radiculopathy , cervical regionOther intervertebra l disc degeneration, lumbar regionConstip ationEncounte r for therapeutic drug level monitoringEnc ounter for screening for other disorder 1 Nirav Moore. [address]183 [facility] [address], [place], [id number], [place]. tel:[phone] Referring Provider: Pwoer Warner, [address] [place] [address], [address]. tel:[phone] OFFICE VISIT, EST TELEMEDICINE [facility], [address] [place] [address], [id number] , [place] tel:[phone] [facility] Widespread pain (chief complaint) Other spondylosis with radiculopathy , cervical regionOther intervertebra l disc degeneration, lumbar regionConstip ationLong term (current) use of opiate analgesicPost laminectomy syndrome, not elsewhere classified 1 Nirav Moore. [address] [facility] 11 [facility] [address], [place], [id number], [place]. tel:[phone] Referring Provider: Power Warner, [address] [place] [address], [address]. tel:[phone] OFFICE VISIT, EST TELEMEDICINE [facility], [address] [place] [address], [id number] , [place] tel:[phone] [facility] Widespread pain (chief complaint) Other spondylosis with radiculopathy , cervical regionOther intervertebra l disc degeneration, lumbar regionConstip ationLong term (current) use of opiate analgesicPost laminectomy syndrome, not elsewhere classified 1 Nirav Moore. [address] [facility] 11 [facility] [address], [place], [id number], [place]. tel:[phone] Referring Provider: Power Warner, [address] [place] [address], [address]. tel:[phone] OFFICE VISIT, EST TELEMEDICINE [facility], [address] [place] [address], [id number] , [place] tel:[phone] [facility] Widespread pain (chief complaint) Other spondylosis with radiculopathy , cervical regionOther intervertebra l disc degeneration, lumbar regionPostlam inectomy syndrome, not elsewhere classifiedCon stipationLong term (current) use of opiate analgesic 1 Nyongesa Teresa. [address], [id number], [place]. tel:[phone] Referring Provider: Power Warner, [address] [place] [address], [address]. tel:[phone] [facility], [address] [place] [address], [id number] , [place] tel:[phone] [facility] No Information 1 Nyongesa Teresa. [address], [id number], [place]. tel:[phone] Referring Provider: Power Warner, [address] [place] [address], [address]. tel:[phone] OFFICE VISIT, EST TELEMEDICINE [facility], [address] [place] [address], [id number] , [place] tel:[phone] [facility] Widespread pain (chief complaint) Other spondylosis with radiculopathy , cervical regionOther intervertebra l disc degeneration, lumbar regionPostlam inectomy syndrome, not elsewhere classifiedCon stipationLong term (current) use of opiate analgesic 1 Nyongesa Teresa. [address], [id number], [place]. tel:[phone] Referring Provider: [employer] Warner, [address] [place] [address], [address]. tel:[phone] OFFICE VISIT, EST TELEMEDICINE [facility], [address] [place] [address], [id number] , [place] tel:[phone] [facility] Widespread pain (chief complaint) Other spondylosis with radiculopathy , cervical regionOther intervertebra l disc degeneration, lumbar regionPostlam inectomy syndrome, not elsewhere classifiedCon stipationLong term (current) use of opiate analgesic 1 Velvet Childs. [facility], [address], [place], [address], [place]. tel:[phone] Referring Provider: Power Warner, [address] [place] [address], [address]. tel:[phone] [facility], [address] [place] [address], [id number] , [place] [phone] [facility] widespread pain (chief complaint) Other spondylosis with radiculopathy , cervical region Aug- 1 Loy Harkins. [address] [place] [address], [id number], [place]. tel:[phone] Referring Provider: Power Warner, [address] [place] [address], [address]. tel:[phone] OFFICE/OUTPAT IENT VISIT, EST [facility], [address] [place] [address], [id number] , [place] [phone] [facility] Back Pain (chief complaint) Other intervertebra l disc degeneration, lumbar regionPostlam inectomy syndrome, not elsewhere classifiedChr onic pain syndromeConst ipationLong term (current) use of opiate analgesicOthe r spondylosis with radiculopathy , cervical region Aug- 1 Nyongesa Teresa. [address]327 [facility] [address], [place], [id number], [place]. tel:[phone] Referring Provider: Power Warner, [address] [place] [address], [address]. tel:[phone] OFFICE VISIT, EST TELEMEDICINE [facility], [address] [place] [address], [id number] , [place] [phone] [facility] Back Pain (chief complaint) Other intervertebra l disc degeneration, lumbar regionPostlam inectomy syndrome, not elsewhere classifiedChr onic pain syndromeConst ipationLong term (current) use of opiate analgesic Mar-2 1 Nyongesa Teresa. [address] [facility] [address], [place], [id number], [place]. tel:[phone] Referring Provider: [employer] Warner, [address] [place] [address], [address]. tel:[phone] [facility], [address] [place] [address], [id number] , [place] tel:[phone] [facility] No Information Jul-0 1 Nyongesa Teresa. [address] [place] [address], [place], [id number], [place]. tel:[phone] Referring Provider: Power Warner, [address] [place] [address], [address]. tel:[phone] [facility], [address] [place] [address], [id number] , [place] [phone] [facility] Postlaminecto my syndrome, not elsewhere classified 1 Nyongesa Teresa. [address] [place] [address], [id number], [place]. tel:[phone] [facility], [address] [place] [address], [id number] , [place] tel:[phone] [facility] Back Pain (chief complaint) Postlaminecto my syndrome, not elsewhere classified 1 Verdin Amadeo. [employer], [address] [facility] [address] [facility] [address], [place], [address], [place]. tel:[phone] Referring Provider: Powre Warner, [address] [place] [address], [address]. tel:[phone] [facility], [address] [place] [address], [id number] , [place] tel:[phone] [facility] Back Pain (chief complaint) Postlaminecto my syndrome, not elsewhere classified 1 Verdin Amadeo. [employer], [address] [facility] [address], [place], [address], [place]. tel:[phone] Referring Provider: Power Warner, [address] [place] [address], [address]. [phone] [facility], [address] [place] [address], [id number] , [place] [phone] [facility] Postlaminecto my syndrome, not elsewhere classified 1 Elvisbilly Wildere. [address] [place] [address], [id number], [place]. [phone] Referring Provider: Power Warner, [address] [place] [address], [address]. [phone] OFFICE VISIT, EST TELEMEDICINE [facility], [address] [place] [address], [id number] , [place] [phone] [facility] Back Pain (chief complaint) Other intervertebra l disc degeneration, lumbar regionPostlam inectomy syndrome, not elsewhere classifiedChr onic pain syndromeConst ipationLong term (current) use of opiate analgesic 1 Nyongesa Teresa. 97[address] [facility] [address], [place], [id number], [place]. tel:[phone] Referring Provider: Power Warner, [address] [place] [address], [address]. [phone] OFFICE/OUTPAT IENT VISIT, EST [facility], [address] [place] [address], [id number] , [place] [phone] [facility] Back Pain (chief complaint) Other intervertebra l disc degeneration, lumbar regionPostlam inectomy syndrome, not elsewhere classifiedChr onic pain syndromeConst ipationLong term (current) use of opiate analgesic 1 Nyongesa Teresa. 64069 [facility] [address], [place], [id number], [place]. tel:[phone] Referring Provider: Power Warner, [address] [place] [address], [address]. tel:[phone] [facility], [address] [place] [address], [id number] , [place] tel:[phone] [facility] [place] Postlaminecto my syndrome, not elsewhere classified 1 Nirav Moore. [address], [id number], [place]. tel:[phone] OFFICE VISIT, EST TELEMEDICINE [facility], [address] [place] [address], [id number] , [place] tel:[phone] [facility] Back Pain (chief complaint) Other intervertebra l disc degeneration, lumbar regionPostlam inectomy syndrome, not elsewhere classifiedChr onic pain syndromeConst ipationLong term (current) use of opiate analgesic 0 Latishaongesa Teresa. [address], [id number], [place]. tel:[phone] Referring Provider: Power Warner, [address] [place] [address], [address]. tel:[phone] OFFICE VISIT, EST TELEMEDICINE [facility], [address] [place] [address], [id number] , [place] tel:[phone] [facility] (chief complaint) Postlaminecto my syndrome, not elsewhere classifiedChr onic pain syndromeConst ipationOther intervertebra l disc degeneration, lumbar regionLong term (current) use of opiate analgesic 0 Latishaongesa Moore. [address], [id number], [place]. tel:[phone] Referring Provider: Power Warner, [address] [place], [address]. tel:[phone] OFFICE VISIT, EST TELEMEDICINE [facility], [address] [place] [address], [id number] , [place] tel:[phone] [facility] Back Pain (chief complaint) Postlaminecto my syndrome, not elsewhere classifiedChr onic pain syndromeConst ipationOther intervertebra l disc degeneration, lumbar regionLong term (current) use of opiate analgesic Oct- 0 Nyongesa Teresa. [address], [id number], [place]. tel:[phone] Referring Provider: Power Warner, [address] [place] [address], [address]. tel:[phone] OFFICE VISIT, EST TELEMEDICINE [facility], [address] [place] [address], [id number] , [place] tel:[phone] [facility] Back Pain (chief complaint) Postlaminecto my syndrome, not elsewhere classifiedChr onic pain syndromeConst ipationOther intervertebra l disc degeneration, lumbar regionLong term (current) use of opiate analgesic Jan- 0 Nyongesa Teresa. [address], [id number], [place]. tel:[phone] Referring Provider: Power Warner, [address] [place] [address], [address]. tel:[phone] OFFICE VISIT, EST TELEMEDICINE [facility], [address] [place] [address], [id number] , [place] tel:[phone] [facility] Back Pain (chief complaint) Postlaminecto my syndrome, not elsewhere classifiedChr onic pain syndromeConst ipationOther intervertebra l disc degeneration, lumbar regionLong term (current) use of opiate analgesic Dec- 0 Nyongesa Teresa. [address], [id number], [place]. tel:[phone] Referring Provider: Power Warner, [address] [place] [address], [address]. tel:[phone] OFFICE VISIT, EST TELEMEDICINE [facility], [address] [place] [address], [id number] , [place] tel:[phone] [facility] Back Pain (chief complaint) Postlaminecto my syndrome, not elsewhere classifiedChr onic pain syndromeConst ipationOther intervertebra l disc degeneration, lumbar regionLong term (current) use of opiate analgesic Neto-3 0-202 0 Nyongesa Teresa. [address] [facility] [address], [place], [id number], [place]. tel:[phone] Referring Provider: Power Warner, [address] [place] [address], [address]. tel:[phone] OFFICE VISIT, EST [facility], [address] [place] [address], [id number] , [place] tel:[phone] [facility] Back Pain (chief complaint) Postlaminecto my syndrome, not elsewhere classifiedChr onic pain syndromeConst ipationOther intervertebra l disc degeneration, lumbar regionLong term (current) use of opiate analgesic Cameron-3 0- 0 Latishaongesa Teresa. [address] [facility] [address], [place], [id number], [place]. tel:[phone] Referring Provider: Power Warner, [address] [place] [address], [id number]. tel:[phone] OFFICE VISIT, EST [facility], [address] [place] [address], [id number] , [place] tel:[phone] [facility] Back Pain (chief complaint) Postlaminecto my syndrome, not elsewhere classifiedChr onic pain syndromeConst ipationOther intervertebra l disc degeneration, lumbar regionLong term (current) use of opiate analgesic September- 0 Bautista Perez. [address], [place], [place], [id number], [place]. tel:[phone] Referring Provider: Power Warner, [address] [place] [address], [address]. tel:[phone] OFFICE VISIT, EST [facility], [address] [place] [address], [id number] , [place] tel:[phone] [facility] Back Pain (chief complaint) Postlaminecto my syndrome, not elsewhere classifiedChr onic pain syndromeConst ipationOther intervertebra l disc degeneration, lumbar regionLong term (current) use of opiate analgesic Aug-2 0 Bautista Perez. [address], [place], [place], [id number], [place]. tel:[phone] Referring Provider: Power Warner, [address] [place] [address], [address]. tel:[phone] OFFICE VISIT, EST TELEMEDICINE [facility], [address] [place] [address], [id number] , [place] tel:[phone] [facility] Back Pain (chief complaint) Postlaminecto my syndrome, not elsewhere classifiedChr onic pain syndromeConst ipationNeurop athyOther intervertebra l disc degeneration, lumbar regionLong term (current) use of opiate analgesic Jul-3 - 0 Nyongesa Teresa. [address] [facility] [address], [place], [id number], [place]. tel:[phone] Referring Provider: Power Warner, [address] [place] [address], [address]. tel:[phone] OFFICE/OUTPAT IENT VISIT, EST [facility], [address] [place] [address], [id number] , [place] tel:[phone] [facility] Back Pain (chief complaint) Postlaminecto my syndrome, not elsewhere classifiedChr onic pain syndromeOther intervertebra l disc degeneration, lumbar regionLong term (current) use of opiate analgesicCons tipationNeuro teri Jul-0 0 Nyongesa Teresa. [address] [facility] [address], [place], [place], [id number], [place]. tel:[phone] Referring Provider: Power Warner, [address] [place] [address], [address]. tel:[phone] OFFICE/OUTPAT IENT VISIT, [facility], [address] [place] [address], [id number] , [place] tel:[phone] [facility] Back Pain (chief complaint) Chronic pain syndromeOther intervertebra l disc degeneration, lumbar regionLong term (current) use of opiate analgesicPost laminectomy syndrome, not elsewhere classified Feb-0 3-202 0 Verdin Amadeo. [facility], [address], [place], [address], [place]. tel:[phone] Referring Provider: Power Warner, [address] [place] [address], [address]. tel:[phone] OFFICE/OUTPAT IENT VISIT, [facility], [address] [place] [address], [id number] , [place] tel:[phone] [facility] Back Pain (chief complaint) Chronic pain syndromeOther intervertebra l disc degeneration, lumbar regionLong term (current) use of opiate analgesicDiso rder of parathyroid gland, unspecifiedVi tamin D deficiency, unspecifiedOt her specified health status 0 Ponce Burnham. [address] [place] [address], [address], [place]. tel:[phone] Referring Provider: [employer], [address] [place] [address], [address]. tel:[phone] OFFICE/OUTPAT IENT VISIT, [facility], [address] [place] [address], [id number] , [place] tel:[phone] [facility] Back Pain (chief complaint) Chronic pain syndromeOther intervertebra l disc degeneration, lumbar regionLong term (current) use of opiate analgesicDiso rder of parathyroid gland, unspecifiedVi tamin D deficiency, unspecifiedOt her specified health status 201 9 Ponce Burnham. [address] [place] [address], [address], [place]. tel:[phone] Referring Provider: [employer], [address] [place] [address], [address]. tel:[phone] OFFICE/OUTPAT IENT VISIT, [facility], [address] [place] [address], [id number] , [place] tel:[phone] [facility] Back Pain (chief complaint) Chronic pain syndromeOther intervertebra l disc degeneration, lumbar regionLong term (current) use of opiate analgesic Feb- 9 [facility]el [facility] Tej. [address] [place] [address], [address], [place]. tel:[phone] Referring Provider: [employer] Warner, [address] [place] [address], [address]. tel:[phone] OFFICE/OUTPAT IENT VISIT, [facility], [address] [place] [address], [id number] , [place] tel:[phone] [facility] ([facility] complaint) Chronic pain syndromeOther intervertebra l disc degeneration, lumbar regionLong term (current) use of opiate analgesic Oct-0 9 [facility] Tej. [address] [place] [address], [address], [place]. tel:[phone] Referring Provider: [employer], [address] [place] [address], [address]. tel:[phone] Psych Dx Eval [facility], [address] [place] [address], [id number] , [place] tel:[phone] [facility] Pain disorder with related psychological factors Oct-0 9 Qian Perez. [address] [place] [address], [id number], [place]. tel:[phone] Referring Provider: [employer], [address] [place] [address], [address]. tel:[phone] OFFICE/OUTPAT IENT VISIT, [facility], [address] [place] [address], [id number] , [place] tel:[phone] [facility] Back Pain (chief complaint) Other intervertebra l disc degeneration, lumbar regionPostlam inectomy syndrome, not elsewhere classifiedLon g term (current) use of opiate analgesic Sep-0 6 9 Veronika Solorio. [address] [place] [address], [id number], [place]. tel:[phone] Referring Provider: [employer], [address] [place] [address], [address]. tel:[phone] OFFICE/OUTPAT IENT VISIT, [facility], [address] [place] [address], [id number] , [place] [phone] [facility] [place] Back Pain (chief complaint) Other intervertebra l disc degeneration, lumbar regionPostlam inectomy syndrome, not elsewhere classifiedLon g term (current) use of opiate analgesicEnco unter for therapeutic drug level monitoring 9 Veronika Solorio. [address] [place], [place], [id number], [place]. tel:[phone] Referring Provider: Powre Warner, [address] [place] [address], [address]. tel:[phone] OFFICE/OUTPAT IENT VISIT, [facility], [address] [place] [address], [id number] , [place] [phone] [facility] [place] Back Pain (chief complaint) Other intervertebra l disc degeneration, lumbar regionPostlam inectomy syndrome, not elsewhere classifiedAbn ormal results of liver function studiesLow back painLong term (current) use of opiate analgesicEnco unter for therapeutic drug level monitoring 9 Jose Maria Moore. [address] [place] [address], [address], [place]. tel:[phone] Referring Provider: [employer], [address] [place] [address], [address]. tel:[phone] Psych Dx Eval [facility], [address] [place] [address], [id number] , [place] tel:[phone] [facility] Pain disorder with related psychological factors 8 Qian Perez. [address] [place] [address], [id number], [place]. tel:[phone] Referring Provider: [employer], [address] [place] [address], [address]. tel:[phone] OFFICE/OUTPAT IENT VISIT, [facility], [address] [place] [address], [id number] , [place] tel:[phone] [facility] Back Pain (chief complaint) Other intervertebra l disc degeneration, lumbar regionPostlam inectomy syndrome, not elsewhere classifiedAbn ormal results of liver function studiesLow back pain 8 Akhil Brennan. [address] [place], [place], [id number], [place]. tel:[phone] Referring Provider: [employer], [address] [place] [address], [address]. tel:[phone] OFFICE/OUTPAT IENT VISIT, EST [facility], [address] [place] [address], [id number] , [place] tel:[phone] [facility] Back Pain (chief complaint) Low back painOther intervertebra l disc degeneration, lumbar regionPostlam inectomy syndrome, not elsewhere classifiedAbn ormal results of liver function studies 8 [facility]. [address] [place], [address], [place]. tel:[phone] Referring Provider: [employer] Warner, [address] [place] [address], [address]. tel:[phone] OFFICE/OUTPAT IENT VISIT, EST [facility], [address] [place] [address], [id number] , [place] tel:[phone] [facility] Back Pain (chief complaint) Low back painOther intervertebra l disc degeneration, lumbar regionPostlam inectomy syndrome, not elsewhere classifiedAbn ormal results of liver function studies 8 [facility]. [address] [place], [address], [place]. tel:[phone] Referring Provider: [employer], [address] [place] [address], [address]. tel:[phone] OFFICE/OUTPAT IENT VISIT, EST [facility], [address] [place] [address], [id number] , [place] tel:[phone] [facility] Back Pain (chief complaint) Other intervertebra l disc degeneration, lumbar regionLow back painPostlamin ectomy syndrome, not elsewhere classifiedAbn ormal results of liver function studies [facility]. [address] [place] [address], [address], [place]. tel:[phone] Referring Provider: [employer], [address] [place] [address], [address]. tel:[phone] OFFICE/OUTPAT IENT VISIT, EST [facility], [address] [place] [address], [id number] , [place] [phone] [facility] [place] Back Pain (chief complaint) Other intervertebra l disc degeneration, lumbar regionLow back painPostlamin ectomy syndrome, not elsewhere classified 8 [facility]. [address] [place] [address], [address], [place]. tel:[phone] Referring Provider: [employer] Warner, [address] [place] [address], [address]. tel:[phone] OFFICE/OUTPAT IENT VISIT, EST [facility], [address] [place] [address], [id number] , [place] tel:[phone] [facility] Back Pain (chief complaint) Other intervertebra l disc degeneration, lumbar regionLow back painPostlamin ectomy syndrome, not elsewhere classified 8 [facility]. [address] [place] [address], [address], [place]. tel:[phone] Referring Provider: [employer], [address] [place] [address], [address]. tel:[phone] OFFICE/OUTPAT IENT VISIT, EST [facility], [address] [place] [address], [id number] , [place] tel:[phone] [facility] [place] low back pain (chief complaint) Other intervertebra l disc degeneration, lumbar regionPostlam inectomy syndrome, not elsewhere classifiedSac roiliitis, not elsewhere classified 8 Adrian Flores. [address] [place], [place], [id number], [place]. tel:[phone] Referring Provider: [employer], [address] [place] [address], [address]. tel:[phone] OFFICE/OUTPAT IENT VISIT, EST [facility], [address] [place] [address], [id number] , [place] [phone] [facility] low back pain (chief complaint) Other intervertebra l disc degeneration, lumbar regionPostlam inectomy syndrome, not elsewhere classifiedSac roiliitis, not elsewhere classified Adrian Flores. [address] [place] [address], [id number], [place]. tel:[phone] Referring Provider: [employer], [address] [place] [address], [address]. tel:[phone] OFFICE/OUTPAT IENT VISIT, EST [facility], [address] [place] [address], [id number] , [place] tel:[phone] [facility] low back pain (chief complaint) Other intervertebra l disc degeneration, lumbar regionPostlam inectomy syndrome, not elsewhere classifiedLow back pain [facility]. [address] [place], [address], [place]. tel:[phone] Referring Provider: oPwer Warner, [address] [place] [address], [address]. tel:[phone] OFFICE/OUTPAT IENT VISIT, EST [facility], [address] [place] [address], [id number] , [place] tel:[phone] [facility] low back pain (chief complaint) Other intervertebra l disc degeneration, lumbar regionPostlam inectomy syndrome, not elsewhere classified Adrian Flores. [address] [place] [address], [id number], [place]. tel:[phone] Referring Provider: Power Warner, [address] [facility] [place], [address]. tel:[phone] OFFICE/OUTPAT IENT VISIT, EST [facility], [address] [facility] [place], [id number] , [place] tel: [phone] [facility] [place] low back pain (chief complaint) Other intervertebra l disc degeneration, lumbar regionPostlam inectomy syndrome, not elsewhere classified 7 Adrian Sandra. [address] [facility] [place], [id number], [place]. tel:[phone] OFFICE/OUTPAT IENT VISIT, EST [facility], [address] [place] [address] [place], [id number] , [place] tel: [phone] [facility] [place] low back pain (chief complaint) Other intervertebra l disc degeneration, lumbar regionPostlam inectomy syndrome, not elsewhere classified 7 Adrian Sandra. [address] [facility] [place], [id number], [place]. tel:[phone] [facility], [address] [place] [address] [place], [id number] , [place] tel: [phone] [facility] [place] No Information 7 Adrian Sandra. [address] [facility] [place], [id number], [place]. tel:[phone] OFFICE/OUTPAT IENT VISIT, EST [facility], [address] [facility] [place], [id number] , [place] tel: [phone] [facility] [place] low back pain (chief complaint) Other intervertebra l disc degeneration, lumbar regionPostlam inectomy syndrome, not elsewhere classified 7 Adrian Sandra. [address] [facility] [place], [id number], [place]. [phone] [facility], [address] [place] [address] [place], [id number] , [place] tel: [phone] [facility] [place] Other intervertebra l disc degeneration, lumbar region Fe 7 Chantal Torres. [address] [place], [place], [id number], [place]. tel:[phone] OFFICE/OUTPAT IENT VISIT, [facility], [address] [facility] [place], [id number] , [place] tel: [phone] [facility] low back pain (chief complaint) Other intervertebra l disc degeneration, lumbar regionPostlam inectomy syndrome, not elsewhere classified 7 Adrian Sandra. [address] [place], [place], [id number], [place]. tel:[phone] OFFICE/OUTPAT IENT VISIT, EST [facility], [address] [facility] [place], [id number] , [place] tel: [phone] [facility] low back pain (chief complaint) Other intervertebra l disc degeneration, lumbar regionPostlam inectomy syndrome, not elsewhere classified 6 Adrian Sandra. [address] [place], [place], [id number], [place]. tel:[phone] OFFICE/OUTPAT IENT VISIT, EST [facility], [address] [place], [place], [id number] , [place] tel: [phone] [facility] low back pain (chief complaint) Other intervertebra l disc degeneration, lumbar regionPostlam inectomy syndrome, not elsewhere classified 6 Adrian Sandra. [address] [place], [place], [id number], [place]. tel:[phone] OFFICE/OUTPAT IENT VISIT, EST [facility], [address] [place], [place], [id number] , [place] tel:[phone] [facility] low back pain (chief complaint) Other intervertebra l disc degeneration, lumbar region 6 Veronika Solorio. [address] [place], [place], [id number], [place]. tel:[phone] OFFICE/OUTPAT IENT VISIT, EST [facility], [address] [place], [id number] , [place] tel:[phone] [facility] [place] low back pain (chief complaint) Other intervertebra l disc degeneration, lumbar regionPostlam inectomy syndrome, not elsewhere classifiedSac roiliitis, not elsewhere classified 6 Adrian Sandra. [address] [place], [id number], [place]. tel:[phone] OFFICE/OUTPAT IENT VISIT, EST [facility], [address] [place], [id number] , [place] tel:[phone] [facility] [place] low back pain (chief complaint) Other intervertebra l disc degeneration, lumbar regionPostlam inectomy syndrome, not elsewhere classifiedSac roiliitis, not elsewhere classified 6 Adrian Sandra. [address] [place], [id number], [place]. tel:[phone] OFFICE/OUTPAT IENT VISIT, EST [facility], [address] [place], [id number] , [place] tel:[phone] [facility] [place] low back pain (chief complaint) Other intervertebra l disc degeneration, lumbar regionPostlam inectomy syndrome, not elsewhere classified 6 Adrian Sandra. [address] [place], [id number], [place]. tel:[phone] OFFICE/OUTPAT IENT VISIT, EST [facility], [address] [place], [id number] , [place] tel:[phone] [facility] [place] low back pain (chief complaint) Other intervertebra l disc degeneration, lumbar regionPostlam inectomy syndrome, not elsewhere classified 0 5 Adrian Sandra. [address] [place], [id number], [place]. tel:[phone] OFFICE/OUTPAT IENT VISIT, EST [facility], [address] [facility] [place], [id number] , [place] tel:[phone] [facility] [place] Back Pain (chief complaint) Other intervertebra l disc degeneration, lumbar regionPostlam inectomy syndrome, not elsewhere classified 5 Adrian Flores. [address] [facility] [place], [id number], [place]. [phone] OFFICE/OUTPAT IENT VISIT, EST [facility], [address] [facility] [place], [id number] , [place] tel:[phone] [facility] [place] low back pain (chief complaint) Degeneration of lumbar or lumbosacral intervertebra l discPostlamin ectomy syndrome of lumbar region 5 Adrian Flores. [address] [facility] [place], [id number], [place]. tel:[phone] OFFICE/OUTPAT IENT VISIT, [facility], [address] [facility] [place], [id number] , [place] tel: [phone] [facility] [place] low back pain (chief complaint) Postlaminecto my syndrome of lumbar regionTherape pinon health centerc Drug Monitoring 5 Chantal Torres. [address] [facility] [place], [id number], [place]. tel:[phone] OFFICE/OUTPAT IENT VISIT, [facility], [address] [facility] [place], [id number] , [place] tel: [phone] [facility] [place] low back pain (chief complaint) Degeneration of lumbar or lumbosacral intervertebra l discPostlamin ectomy syndrome of lumbar region 5 Adrian Flores. [address] [place], [id number], [place]. tel:[phone] OFFICE/OUTPAT IENT VISIT, [facility], [address] [facility] [place], [id number] , [place] tel: [phone] [facility] [place] low back pain (chief complaint) Degeneration of lumbar or lumbosacral intervertebra l discPostlamin ectomy syndrome of lumbar region 5 Adrianmarlene Flores. [address] [place], [id number], [place]. tel:[phone] OFFICE/OUTPAT IENT VISIT, EST [facility], [address] [place], [id number] , [place] tel: [phone] [facility] [place] low back pain (chief complaint) Degeneration of lumbar or lumbosacral intervertebra l discPostlamin ectomy syndrome of lumbar region 5 Adrianmarlene Flores. [address] [place], [id number], [place]. tel:[phone] OFFICE/OUTPAT IENT VISIT, EST [facility], [address] [place], [id number] , [place] tel: [phone] [facility] [place] low back pain (chief complaint) Degeneration of lumbar or lumbosacral intervertebra l discPostlamin ectomy syndrome of lumbar region 5 Adrianmarlene Flores. [address] [place], [id number], [place]. tel:[phone] Psych Dx Eval [facility], [address] [place], [id number] , [place] tel: [phone] [facility] [place] Pain disorder related to psychological factorMajor depressive disorder, recurrent episode, mild degreeAnxiety 5 No Information OFFICE/OUTPAT IENT VISIT, EST [facility], [address] [place], [id number] , [place] tel: [phone] [facility] [place] low back pain (chief complaint) Degeneration of lumbar or lumbosacral intervertebra l discPostlamin ectomy syndrome of lumbar region 5 Adrian Flores. [address] [place], [id number], [place]. tel:[phone] [facility], [address] [facility] [place] [id number] , [place] tel:[phone] [facility] [place] Degeneration of lumbar or lumbosacral intervertebra l disc 5 Fernie Rinaldi. [address] [place], [id number], [place]. tel:[phone] [facility], [address] [place] [address] [place], [id number] , [place] tel:[phone] [facility] [place] Postlaminecto my syndrome of lumbar regionSciatic a 5 No Information OFFICE/OUTPAT IENT VISIT, EST [facility], [address] [place] [address] [place], [id number] , [place] tel:-[phone] [facility] [place] low back pain (chief complaint) Postlaminecto my syndrome of lumbar regionSciatic a 5 Adrian Flores. [address] [facility] [place], [place], [id number], [place]. tel:[phone] OFFICE CONSULTATION [facility], [address] [place] [address] [place], [id number] , [place] tel:-[phone] [facility] [place] low back pain (chief complaint) Postlaminecto my syndrome of lumbar regionSciatic aTherapeutic Drug Monitoring 5 Adrian Flores. [address] [facility] [place], [place], [id number], [place]. tel:[phone] Family History Family Member Type Diagnosis Age At Onset Mother Problem (finding) multiple back surgeries Payers Payer name Insurance type Covered green party ID Authormarianaa tijenise(s) r CI [id number] Social History Type Description Quantity Date Captured Comments Alcohol Use Details No Caffeine Use Details Unknown Tobacco Use Status Current non-smoker Smoking Status Never smoker Sex Female Vital Signs Date / Time: Height Weight BMI Pulse Rate Blood Pressure Temperature Respiratory Rate Body Surface Area Head Circumference Head Circ. Percentile Wt./[place]. Percentile BMI percentile Pulse Ox Inhaled Ox 8:01 AM 73.00 in 93.894 kg (207.00 lbs) 27.3 1 kg/m eter (2) Chief Complaint And Reason For Visit From encounter dated '09/01/2023 08:00'. Back Pain (chief complaint). Description: Duration: chronic. Reason For Referral Reason For Referral No Information Plan Of Treatment Date Type Action Status Goal UDT. Due on due Goal ALT (SGPT). Due on due Goal [employer]ER Scanned. Due on due Goal Lipid panel. Due on due Goal Creatinine. Due on due Goal Weight. Due on d ue Goal Height. Due on d ue Goal AST (SGOT). Due on due Goal Unhealthy drug u se screening. Due on due Goal Order Annual PT. Due on due Goal Hepatitis C scre ening. Due on due Goal HPV. Due on due Goal Medication Recon ciliation. Due on due Goal ENERGY ASSISTANT Paperwork. Due on due Goal Review Allergy List. Due on due Goal OARS. Due on due Goal Update Social Hi story. Due on due Goal PHQ-9. Due on du e Goal Tobacco Use. Due on due Goal Lifestyle education regardin g diet completed Goal ENERGY ASSISTANT Paperwork. Due on due Goal ALT (SGPT). Due on due Goal [employer] MARKER Scanned. Due on due Goal OARS. Due on due Goal Creatinine. Due on due Goal AST (SGOT). Due on due Goal Order Annual PT. Due on due Goal UDT. Due on due Goal Lipid panel. Due on due Goal Weight. Due on d ue Goal Height. Due on d ue Goal PHQ-9. Due on du e Goal Tobacco Use. Due on due Goal Review Allergy List. Due on due Goal Unhealthy drug u se screening. Due on due Goal Medication Recon ciliation. Due on due Goal Hepatitis C scre ening. Due on due Goal HPV. Due on due Goal Update Social Hi story. Due on due Goal HPV. Due on due Goal Height. Due on d ue Goal Unhealthy drug u se screening. Due on due Goal Weight. Due on d ue Goal Hepatitis C scre ening. Due on due Goal Tobacco Use. Due on due Goal Lipid panel. Due on due Goal PHQ-9. Due on du e Goal Medication Recon ciliation. Due on due Goal Update Social Hi story. Due on due Goal Creatinine. Due on due Goal OARS. Due on due Goal Review Allergy List. Due on due Goal ENERGY ASSISTANT Paperwork. Due on due Goal AST (SGOT). Due on due Goal ALT (SGPT). Due on due Goal Order Annual PT. Due on due Goal [employer] CENTER MARKER Scanned. Due on due Goal UDT. Due on due Goal Unhealthy drug u se screening. Due on due Goal AST (SGOT). Due on due Goal Weight. Due on d ue Goal Lipid panel. Due on due Goal PHQ-9. Due on du e Goal Hepatitis C scre ening. Due on due Goal Update Social Hi story. Due on due Goal UDT. Due on due Goal Creatinine. Due on due Goal [employer] CENTER MARKER Scanned. Due on due Goal Medication Recon ciliation. Due on due Goal ENERGY ASSISTANT Paperwork. Due on due Goal Tobacco Use. Due on due Goal Review Allergy List. Due on due Goal HPV. Due on due Goal OARS. Due on due Goal ALT (SGPT). Due on due Goal Height. Due on d ue Goal Order Annual PT. Due on due Goal Order Annual PT. Due on due Goal ALT (SGPT). Due on due Goal Hepatitis C scre ening. Due on due Goal ENERGY ASSISTANT Paperwork. Due on due Goal Update Social Hi story. Due on due Goal Weight. Due on d ue Goal Lipid panel. Due on due Goal [employer] MARKER Scanned. Due on due Goal OARS. Due on due Goal AST (SGOT). Due on due Goal UDT. Due on due Goal Creatinine. Due on due Goal Height. Due on d ue Goal Review Allergy List. Due on due Goal Unhealthy drug u se screening. Due on due Goal HPV. Due on due Goal Medication Recon ciliation. Due on due Goal PHQ-9. Due on du e Goal Tobacco Use. Due on due Goal Update Social Hi story. Due on due Goal Medication Recon ciliation. Due on due Goal Order Annual PT. Due on due Goal OARS. Due on due Goal AST (SGOT). Due on due Goal Unhealthy drug u se screening. Due on due Goal Tobacco Use. Due on due Goal Creatinine. Due on due Goal [employer] CENTER MARKER Scanned. Due on due Goal Lipid panel. Due on due Goal ENERGY ASSISTANT Paperwork. Due on due Goal Weight. Due on d ue Goal UDT. Due on due Goal ALT (SGPT). Due on due Goal Hepatitis C scre ening. Due on due Goal HPV. Due on due Goal Height. Due on d ue Goal PHQ-9. Due on du e Goal Review Allergy List. Due on due Goal OARS. Due on due Goal Hepatitis C scre ening. Due on due Goal ALT (SGPT). Due on due Goal ENERGY ASSISTANT Paperwork. Due on due Goal AST (SGOT). Due on due Goal Order Annual PT. Due on due Goal Creatinine. Due on due Goal UDT. Due on due Goal [employer] CENTER MARKER Scanned. Due on due Goal PHQ-9. Due on du e Goal Review Allergy List. Due on due Goal HPV. Due on due Goal Height. Due on d ue Goal Weight. Due on d ue Goal Lipid panel. Due on due Goal Unhealthy drug u se screening. Due on due Goal Medication Recon ciliation. Due on due Goal Tobacco Use. Due on due Goal Update Social Hi story. Due on due Goal ALT (SGPT). Due on due Goal PHQ-9. Due on du e Goal AST (SGOT). Due on due Goal OARS. Due on due Goal HPV. Due on due Goal Order Annual PT. Due on due Goal [employer] CENTER MARKER Scanned. Due on due Goal Creatinine. Due on due Goal Unhealthy drug u se screening. Due on due Goal [facility] Paperwork. Due on due Goal UDT. Due on due Goal Lipid panel. Due on 023 due Goal Weight. Due on d ue Goal Tobacco Use. Due on due Goal Height. Due on d ue Goal Medication Recon ciliation. Due on due Goal Hepatitis C scre ening. Due on due Goal Update Social Hi story. Due on due Goal Review Allergy List. Due on due Goal Order Annual PT. Due on due Goal Creatinine. Due on due Goal ALT (SGPT). Due on due Goal UDT. Due on due Goal OARS. Due on due Goal AST (SGOT). Due on due Goal [facility] Paperwork. Due on due Goal [employer] C[employer] MARKER Scanned. Due on due Goal HPV. Due on due Goal Weight. Due on d ue Goal Unhealthy drug u se screening. Due on due Goal Tobacco Use. Due on due Goal Medication Recon ciliation. Due on due Goal Review Allergy List. Due on due Goal Update Social Hi story. Due on due Goal PHQ-9. Due on du e Goal Hepatitis C scre ening. Due on due Goal Height. Due on d ue Goal Lipid panel. Due on due Goal Review Allergy List. Due on due Goal Order Annual PT. Due on due Goal Lipid panel. Due on due Goal Hepatitis C scre ening. Due on due Goal Update Social Hi story. Due on due Goal Creatinine. Due on due Goal Height. Due on d ue Goal OARS. Due on due Goal Tobacco Use. Due on due Goal Weight. Due on d ue Goal PHQ-9. Due on du e Goal ALT (SGPT). Due on due Goal HPV. Due on due Goal UDT. Due on due Goal Unhealthy drug u se screening. Due on due Goal Medication Recon ciliation. Due on due Goal ENERGY ASSISTANT Paperwork. Due on due Goal AST (SGOT). Due on due Goal [employer] C[employer] MARKER Scanned. Due on due Goal Order Annual PT. Due on due Goal Review Allergy List. Due on due Goal Creatinine. Due on due Goal OARS. Due on due Goal UDT. Due on due Goal Update Social Hi story. Due on due Goal Tobacco Use. Due on due Goal AST (SGOT). Due on due Goal Height. Due on d ue Goal Weight. Due on d ue Goal HPV. Due on due Goal GR[employer] CENTER MARKER Scanned. Due on due Goal PHQ-9. Due on du e Goal ALT (SGPT). Due on due Goal ENERGY ASSISTANT Paperwork. Due on due Goal Hepatitis C scre ening. Due on due Goal Medication Recon ciliation. Due on due Goal Unhealthy drug u se screening. Due on due Goal Lipid panel. Due on due Goal UDT. Due on due Goal ALT (SGPT). Due on due Goal Unhealthy drug u se screening. Due on due Goal Medication Recon ciliation. Due on due Goal Order Annual PT. Due on due Goal Lipid panel. Due on due Goal ENERGY ASSISTANT Paperwork. Due on due Goal Review Allergy List. Due on due Goal Weight. Due on d ue Goal AST (SGOT). Due on due Goal Hepatitis C scre ening. Due on due Goal HPV. Due on due Goal PHQ-9. Due on du e Goal GR[employer] CENTER MARKER Scanned. Due on due Goal Creatinine. Due on due Goal Tobacco Use. Due on due Goal Update Social Hi story. Due on due Goal Height. Due on d ue Goal OARS. Due on due Goal AST (SGOT). Due on due Goal OARS. Due on due Goal Order Annual PT. Due on due Goal ENERGY ASSISTANT Paperwork. Due on due Goal Unhealthy drug u se screening. Due on due Goal PHQ-9. Due on du e Goal Lipid panel. Due on due Goal Hepatitis C scre ening. Due on due Goal Medication Recon ciliation. Due on due Goal UDT. Due on due Goal HPV. Due on due Goal GRADE [employer] CENTER MARKER Scanned. Due on due Goal Creatinine. Due on due Goal Height. Due on d ue Goal Weight. Due on d ue Goal Update Social Hi story. Due on due Goal Review Allergy List. Due on due Goal ALT (SGPT). Due on due Goal Tobacco Use. Due on due Goal GR[employer] CENTER MARKER Scanned. Due on due Goal AST (SGOT). Due on due Goal OARS. Due on due Goal UDT. Due on due Goal Order Annual PT. Due on due Goal ALT (SGPT). Due on due Goal Unhealthy drug u se screening. Due on due Goal Lipid panel. Due on due Goal PHQ-9. Due on du e Goal Medication Recon ciliation. Due on due Goal Tobacco Use. Due on due Goal Review Allergy List. Due on due Goal Hepatitis C scre ening. Due on due Goal Creatinine. Due on due Goal Height. Due on d ue Goal HPV. Due on due Goal ENERGY ASSISTANT Paperwork. Due on due Goal Weight. Due on d ue Goal Update Social Hi story. Due on due Goal ALT (SGPT). Due on due Goal UDT. Due on due Goal OARS. Due on due Goal Order Annual PT. Due on due Goal Medication Recon ciliation. Due on due Goal PHQ-9. Due on du e Goal Review Allergy List. Due on due Goal Hepatitis C scre ening. Due on due Goal Height. Due on d ue Goal Tobacco Use. Due on due Goal Update Social Hi story. Due on due Goal HPV. Due on due Goal Weight. Due on d ue Goal GRADE AND CENTER MARKER Scanned. Due on due Goal AST (SGOT). Due on due Goal Unhealthy drug u se screening. Due on due Goal Creatinine. Due on due Goal ENERGY ASSISTANT Paperwork. Due on due Goal Lipid panel. Due on due Goal Creatinine. Due on due Goal Lipid panel. Due on due Goal Hepatitis C scre ening. Due on due Goal Tobacco Use. Due on due Goal Update Social Hi story. Due on due Goal PHQ-9. Due on du e Goal Weight. Due on d ue Goal Review Allergy List. Due on due Goal Medication Recon ciliation. Due on due Goal Unhealthy drug u se screening. Due on due Goal ALT (SGPT). Due on due Goal GRADE AND CENTER MARKER Scanned. Due on due Goal Order Annual PT. Due on due Goal UDT. Due on due Goal ENERGY ASSISTANT Paperwork. Due on due Goal HPV. Due on due Goal Height. Due on d ue Goal AST (SGOT). Due on due Goal OARS. Due on due Goal Review Allergy List. Due on due Goal UDT. Due on due Goal OARS. Due on due Goal HPV. Due on due Goal PHQ-9. Due on du e Goal Hepatitis C scre ening. Due on due Goal Creatinine. Due on due Goal GRADE AND CENTER MARKER Scanned. Due on due Goal Tobacco Use. Due on due Goal Order Annual PT. Due on due Goal AST (SGOT). Due on due Goal Weight. Due on d ue Goal ALT (SGPT). Due on due Goal Unhealthy drug u se screening. Due on due Goal ENERGY ASSISTANT Paperwork. Due on due Goal Height. Due on d ue Goal Update Social Hi story. Due on due Goal Lipid panel. Due on due Goal Medication Recon ciliation. Due on due Goal UDT. Due on due Goal Order Annual PT. Due on due Goal OARS. Due on due Goal ENERGY ASSISTANT Paperwork. Due on due Goal Creatinine. Due on due Goal ALT (SGPT). Due on due Goal AST (SGOT). Due on due Goal GRADE AND CENTER MARKER Scanned. Due on due Goal Unhealthy drug u se screening. Due on due Goal Medication Recon ciliation. Due on due Goal Height. Due on d ue Goal Review Allergy List. Due on due Goal Hepatitis C scre ening. Due on due Goal Weight. Due on d ue Goal Tobacco Use. Due on due Goal HPV. Due on due Goal Update Social Hi story. Due on due Goal PHQ-9. Due on du e Goal Lipid panel. Due on due Goal Unhealthy drug u se screening. Due on due Goal Weight. Due on d ue Goal HPV. Due on due Goal Height. Due on d ue Goal Update Social Hi story. Due on due Goal Tobacco Use. Due on due Goal UDT. Due on due Goal Lipid panel. Due on due Goal ENERGY ASSISTANT Paperwork. Due on due Goal ALT (SGPT). Due on due Goal Order Annual PT. Due on due Goal Review Allergy List. Due on due Goal GRADE AND CENTER MARKER Scanned. Due on due Goal Creatinine. Due on due Goal PHQ-9. Due on du e Goal Hepatitis C scre ening. Due on due Goal Medication Recon ciliation. Due on due Goal OARS. Due on due Goal AST (SGOT). Due on due Goal GRADE AND CENTER MARKER Scanned. Due on due Goal Hepatitis C scre ening. Due on due Goal ALT (SGPT). Due on due Goal AST (SGOT). Due on due Goal ENERGY ASSISTANT Paperwork. Due on due Goal UDT. Due on due Goal Review Allergy List. Due on due Goal Lipid panel. Due on 023 due Goal Medication Recon ciliation. Due on due Goal HPV. Due on due Goal Weight. Due on d ue Goal Unhealthy drug u se screening. Due on due Goal Tobacco Use. Due on 023 due Goal Order Annual PT. Due on due Goal Height. Due on d ue Goal OARS. Due on due Goal Update Social Hi story. Due on due Goal Creatinine. Due on due Goal PHQ-9. Due on du e Goal ALT (SGPT). Due on due Goal Creatinine. Due on due Goal AST (SGOT). Due on due Goal Height. Due on d ue Goal Weight. Due on d ue Goal Hepatitis C scre ening. Due on due Goal Order Annual PT. Due on due Goal Medication Recon ciliation. Due on due Goal Unhealthy drug u se screening. Due on due Goal Update Social Hi story. Due on due Goal OARS. Due on due Goal Lipid panel. Due on due Goal Tobacco Use. Due on due Goal ENERGY ASSISTANT Paperwork. Due on due Goal PHQ-9. Due on du e Goal UDT. Due on due Goal HPV. Due on due Goal Review Allergy List. Due on due Goal GR[employer] CENTER MARKER Scanned. Due on due Goal ALT (SGPT). Due on due Goal UDT. Due on due Goal OARS. Due on due Goal AST (SGOT). Due on due Goal ENERGY ASSISTANT Paperwork. Due on due Goal Review Allergy List. Due on due Goal HPV. Due on due Goal Order Annual PT. Due on due Goal GRADE AND CENTER MARKER Scanned. Due on due Goal Weight. Due on d ue Goal Tobacco Use. Due on due Goal Creatinine. Due on due Goal Medication Recon ciliation. Due on due Goal Height. Due on d ue Goal Unhealthy drug u se screening. Due on due Goal Update Social Hi story. Due on due Goal Lipid panel. Due on due Goal Hepatitis C scre ening. Due on due Goal PHQ-9. Due on du e Goal Tobacco Use. Due on due Goal Medication Recon ciliation. Due on due Goal Height. Due on d ue Goal Unhealthy drug u se screening. Due on due Goal Review Allergy List. Due on due Goal AST (SGOT). Due on due Goal Creatinine. Due on due Goal GRADE AND CENTER MARKER Scanned. Due on due Goal UDT. Due on due Goal Weight. Due on d ue Goal PHQ-9. Due on du e Goal Lipid panel. Due on due Goal OARS. Due on due Goal ALT (SGPT). Due on due Goal ENERGY ASSISTANT Paperwork. Due on due Goal Update Social Hi story. Due on due Goal Hepatitis C scre ening. Due on due Goal Order Annual PT. Due on due Goal HPV. Due on due Goal Order Annual PT. Due on due Goal Medication Recon ciliation. Due on due Goal AST (SGOT). Due on due Goal Review Allergy List. Due on due Goal OARS. Due on due Goal UDT. Due on due Goal ALT (SGPT). Due on due Goal Weight. Due on d ue Goal Creatinine. Due on due Goal ENERGY ASSISTANT Paperwork. Due on due Goal Update Social Hi story. Due on due Goal Tobacco Use. Due on due Goal Height. Due on d ue Goal Lipid panel. Due on due Goal PHQ-9. Due on du e Goal HPV. Due on due Goal Unhealthy drug u se screening. Due on due Goal GRADE AND CENTER MARKER Scanned. Due on due Goal Hepatitis C scre ening. Due on due Goal GRADE AND CENTER MARKER Scanned. Due on due Goal UDT. Due on due Goal ALT (SGPT). Due on due Goal OARS. Due on due Goal Creatinine. Due on due Goal Order Annual PT. Due on due Goal AST (SGOT). Due on due Goal ENERGY ASSISTANT Paperwork. Due on due Goal Lipid panel. Due on due Goal Hepatitis C scre ening. Due on due Goal Unhealthy drug u se screening. Due on due Goal Tobacco Use. Due on due Goal Weight. Due on d ue Goal Medication Recon ciliation. Due on due Goal PHQ-9. Due on du e Goal HPV. Due on due Goal Review Allergy List. Due on due Goal Height. Due on d ue Goal Update Social Hi story. Due on due Goal Medication Recon ciliation. Due on due Goal Creatinine. Due on due Goal UDT. Due on due Goal Hepatitis C scre ening. Due on due Goal Tobacco Use. Due on due Goal GRADE AND CENTER MARKER Scanned. Due on due Goal HPV. Due on due Goal Update Social Hi story. Due on due Goal Order Annual PT. Due on due Goal ENERGY ASSISTANT Paperwork. Due on due Goal Review Allergy List. Due on due Goal AST (SGOT). Due on due Goal Height. Due on d ue Goal PHQ-9. Due on du e Goal Unhealthy drug u se screening. Due on due Goal Lipid panel. Due on due Goal OARS. Due on due Goal Weight. Due on d ue Goal ALT (SGPT). Due on due Goal ALT (SGPT). Due on due Goal Creatinine. Due on due Goal OARS. Due on due Goal AST (SGOT). Due on due Goal ENERGY ASSISTANT Paperwork. Due on due Goal Order Annual PT. Due on due Goal GRADE AND CENTER MARKER Scanned. Due on due Goal UDT. Due on due Goal Update Social Hi story. Due on due Goal Tobacco Use. Due on due Goal HPV. Due on due Goal Review Allergy List. Due on due Goal Medication Recon ciliation. Due on due Goal Unhealthy drug u se screening. Due on due Goal PHQ-9. Due on du e Goal Hepatitis C scre ening. Due on due Goal Weight. Due on d ue Goal Lipid panel. Due on due Goal Height. Due on d ue Goal AST (SGOT). Due on due Goal Lipid panel. Due on due Goal Hepatitis C scre ening. Due on due Goal Review Allergy List. Due on due Goal Weight. Due on d ue Goal Update Social Hi story. Due on due Goal GRADE AND CENTER MARKER Scanned. Due on due Goal Order Annual PT. Due on due Goal UDT. Due on due Goal Tobacco Use. Due on due Goal Unhealthy drug u se screening. Due on due Goal Medication Recon ciliation. Due on due Goal ENERGY ASSISTANT Paperwork. Due on due Goal HPV. Due on due Goal OARS. Due on due Goal ALT (SGPT). Due on due Goal PHQ-9. Due on du e Goal Creatinine. Due on due Goal Height. Due on d ue Goal ENERGY ASSISTANT Paperwork. Due on due Goal UDT. Due on due Goal Creatinine. Due on due Goal ALT (SGPT). Due on due Goal GRADE AND CENTER MARKER Scanned. Due on due Goal OARS. Due on due Goal AST (SGOT). Due on due Goal Order Annual PT. Due on due Goal Height. Due on d ue Goal Lipid panel. Due on due Goal Update Social Hi story. Due on due Goal PHQ-9. Due on du e Goal Unhealthy drug u se screening. Due on due Goal Medication Recon ciliation. Due on due Goal Hepatitis C scre ening. Due on due Goal HPV. Due on due Goal Tobacco Use. Due on due Goal Review Allergy List. Due on due Goal Weight. Due on d ue Goal PHQ-9. Due on du e Goal Order Annual PT. Due on due Goal Creatinine. Due on due Goal Review Allergy List. Due on due Goal Unhealthy drug u se screening. Due on due Goal AST (SGOT). Due on due Goal Lipid panel. Due on due Goal UDT. Due on due Goal ALT (SGPT). Due on due Goal OARS. Due on due Goal GRADE AND CENTER MARKER Scanned. Due on due Goal ENERGY ASSISTANT Paperwork. Due on due Goal Hepatitis C scre ening. Due on due Goal Update Social Hi story. Due on due Goal Tobacco Use. Due on due Goal HPV. Due on due Goal Height. Due on d ue Goal Medication Recon ciliation. Due on due Goal Weight. Due on d ue Goal Unhealthy drug u se screening. Due on due Goal AST (SGOT). Due on due Goal Creatinine. Due on due Goal Order Annual PT. Due on due Goal UDT. Due on due Goal ALT (SGPT). Due on due Goal OARS. Due on due Goal GRADE AND CENTER MARKER Scanned. Due on due Goal ENERGY ASSISTANT Paperwork. Due on due Goal Review Allergy List. Due on due Goal Tobacco Use. Due on due Goal Lipid panel. Due on due Goal Weight. Due on d ue Goal Height. Due on d ue Goal Medication Recon ciliation. Due on due Goal PHQ-9. Due on du e Goal Update Social Hi story. Due on due Goal HPV. Due on due Goal Hepatitis C scre ening. Due on due Goal Review Allergy List. Due on due Goal Hepatitis C scre ening. Due on due Goal GRADE AND CENTER MARKER Scanned. Due on due Goal OARS. Due on due Goal Order Annual PT. Due on due Goal Medication Recon ciliation. Due on due Goal Creatinine. Due on due Goal UDT. Due on due Goal Weight. Due on d ue Goal Update Social Hi story. Due on due Goal AST (SGOT). Due on due Goal Height. Due on d ue Goal ALT (SGPT). Due on due Goal HPV. Due on due Goal Lipid panel. Due on due Goal Tobacco Use. Due on due Goal PHQ-9. Due on du e Goal ENERGY ASSISTANT Paperwork. Due on due Goal Unhealthy drug u se screening. Due on due Goal Weight. Due on d ue Goal HPV. Due on due Goal PHQ-9. Due on du e Goal GRADE AND CENTER MARKER Scanned. Due on due Goal OARS. Due on due Goal Review Allergy List. Due on due Goal Lipid panel. Due on due Goal AST (SGOT). Due on due Goal Creatinine. Due on due Goal ALT (SGPT). Due on due Goal UDT. Due on due Goal ENERGY ASSISTANT Paperwork. Due on due Goal Unhealthy drug u se screening. Due on due Goal Order Annual PT. Due on due Goal Tobacco Use. Due on due Goal Update Social Hi story. Due on due Goal Medication Recon ciliation. Due on due Goal Height. Due on d ue Goal Hepatitis C scre ening. Due on due Goal UDT. Due on due Goal Tobacco Use. Due on due Goal ALT (SGPT). Due on due Goal AST (SGOT). Due on due Goal ENERGY ASSISTANT Paperwork. Due on due Goal Creatinine. Due on due Goal Order Annual PT. Due on due Goal Update Social Hi story. Due on due Goal Weight. Due on d ue Goal GRADE AND CENTER MARKER Scanned. Due on due Goal Review Allergy List. Due on due Goal PHQ-9. Due on du e Goal OARS. Due on due Goal Height. Due on d ue Goal Medication Recon ciliation. Due on due Goal HPV. Due on due Goal Unhealthy drug u se screening. Due on due Goal Hepatitis C scre ening. Due on due Goal Lipid panel. Due on due Goal Update Social Hi story. Due on due Goal Medication Recon ciliation. Due on due Goal Height. Due on d ue Goal Review Allergy List. Due on due Goal Order Annual PT. Due on due Goal ENERGY ASSISTANT Paperwork. Due on due Goal UDT. Due on due Goal Medication Recon ciliation. Due on due Goal Tobacco Use. Due on due Goal Update Social Hi story. Due on due Goal AST (SGOT). Due on due Goal Height. Due on d ue Goal OARS. Due on due Goal GRADE AND CENTER MARKER Scanned. Due on due Goal Weight. Due on d ue Goal ALT (SGPT). Due on due Goal PHQ-9. Due on du e Goal Weight. Due on d ue Goal Tobacco Use. Due on due Goal ENERGY ASSISTANT Paperwork. Due on due Goal UDT. Due on due Goal ALT (SGPT). Due on due Goal OARS. Due on due Goal Review Allergy List. Due on due Goal PHQ-9. Due on du e Goal Order Annual PT. Due on due Goal AST (SGOT). Due on due Goal GRADE AND CENTER MARKER Scanned. Due on due Goal ALT (SGPT). Due on due Goal GRADE AND CENTER MARKER Scanned. Due on due Goal AST (SGOT). Due on due Goal OARS. Due on due Goal UDT. Due on due Goal Order Annual PT. Due on due Goal Height. Due on d ue Goal ENERGY ASSISTANT Paperwork. Due on due Goal Review Allergy List. Due on due Goal Tobacco Use. Due on due Goal Weight. Due on d ue Goal Update Social Hi story. Due on due Goal PHQ-9. Due on du e Goal Medication Recon ciliation. Due on due Goal Update Social Hi story. Due on due Goal PHQ-9. Due on du e Goal Height. Due on d ue Goal Order Annual PT. Due on due Goal Weight. Due on d ue Goal Tobacco Use. Due on due Goal Medication Recon ciliation. Due on due Goal ENERGY ASSISTANT Paperwork. Due on due Goal Review Allergy List. Due on due Goal UDT. Due on due Goal OARS. Due on due Goal ALT (SGPT). Due on due Goal AST (SGOT). Due on due Goal GRADE AND CENTER MARKER Scanned. Due on due Goal Weight. Due on d ue Goal Update Social Hi story. Due on due Goal Review Allergy List. Due on due Goal Height. Due on d ue Goal PHQ-9. Due on du e Goal Order Annual PT. Due on due Goal ALT (SGPT). Due on due Goal Tobacco Use. Due on due Goal OARS. Due on due Goal AST (SGOT). Due on due Goal GRADE AND CENTER MARKER Scanned. Due on due Goal Medication Recon ciliation. Due on due Goal ENERGY ASSISTANT Paperwork. Due on due Goal UDT. Due on due Goal PHQ-9. Due on du e Goal ENERGY ASSISTANT Paperwork. Due on due Goal UDT. Due on due Goal Update Social Hi story. Due on due Goal GRADE AND CENTER MARKER Scanned. Due on due Goal Tobacco Use. Due on due Goal OARS. Due on due Goal Weight. Due on d ue Goal Medication Recon ciliation. Due on due Goal AST (SGOT). Due on due Goal Height. Due on d ue Goal ALT (SGPT). Due on due Goal Review Allergy List. Due on due Goal Order Annual PT. Due on due Goal Weight. Due on d ue Goal PHQ-9. Due on du e Goal Tobacco Use. Due on due Goal Medication Recon ciliation. Due on due Goal Review Allergy List. Due on due Goal ENERGY ASSISTANT Paperwork. Due on due Goal Height. Due on d ue Goal AST (SGOT). Due on due Goal Order Annual PT. Due on due Goal GRADE AND CENTER MARKER Scanned. Due on due Goal OARS. Due on due Goal ALT (SGPT). Due on due Goal UDT. Due on due Goal Update Social Hi story. Due on due Goal PHQ-9. Due on du e Goal UDT. Due on due Goal ENERGY ASSISTANT Paperwork. Due on due Goal Tobacco Use. Due on due Goal Review Allergy List. Due on due Goal OARS. Due on due Goal Order Annual PT. Due on due Goal Height. Due on d ue Goal GRADE AND CENTER MARKER Scanned. Due on due Goal Weight. Due on d ue Goal AST (SGOT). Due on due Goal Update Social Hi story. Due on due Goal Medication Recon ciliation. Due on due Goal ALT (SGPT). Due on due Goal Review Allergy List. Due on due Goal Height. Due on d ue Goal GRADE AND CENTER MARKER Scanned. Due on due Goal Tobacco Use. Due on due Goal PHQ-9. Due on du e Goal UDT. Due on due Goal ENERGY ASSISTANT Paperwork. Due on due Goal OARS. Due on due Goal Weight. Due on d ue Goal Order Annual PT. Due on due Goal AST (SGOT). Due on due Goal ALT (SGPT). Due on due Goal Medication Recon ciliation. Due on due Goal Update Social Hi story. Due on due Goal UDT. Due on due Goal PHQ-9. Due on du e Goal Order Annual PT. Due on due Goal ENERGY ASSISTANT Paperwork. Due on due Goal ALT (SGPT). Due on due Goal Tobacco Use. Due on due Goal Medication Recon ciliation. Due on due Goal OARS. Due on due Goal Height. Due on d ue Goal GRADE AND CENTER MARKER Scanned. Due on due Goal Weight. Due on d ue Goal AST (SGOT). Due on due Goal Review Allergy List. Due on due Goal Update Social Hi story. Due on due Goal Tobacco Use. Due on due Goal OARS. Due on due Goal Height. Due on d ue Goal UDT. Due on due Goal Medication Recon ciliation. Due on due Goal ENERGY ASSISTANT Paperwork. Due on due Goal PHQ-9. Due on du e Goal AST (SGOT). Due on due Goal Order Annual PT. Due on due Goal Weight. Due on d ue Goal Review Allergy List. Due on due Goal ALT (SGPT). Due on due Goal Update Social Hi story. Due on due Goal GRADE AND CENTER MARKER Scanned. Due on due Goal Update Social Hi story. Due on due Goal GRADE AND CENTER MARKER Scanned. Due on due Goal UDT. Due on due Goal OARS. Due on due Goal Order Annual PT. Due on due Goal AST (SGOT). Due on due Goal ENERGY ASSISTANT Paperwork. Due on due Goal Medication Recon ciliation. Due on due Goal Height. Due on d ue Goal PHQ-9. Due on du e Goal Review Allergy List. Due on due Goal Tobacco Use. Due on due Goal Weight. Due on d ue Goal ALT (SGPT). Due on due Goal GRADE AND CENTER MARKER Scanned. Due on due Goal PHQ-9. Due on du e Goal Weight. Due on d ue Goal AST (SGOT). Due on due Goal ENERGY ASSISTANT Paperwork. Due on due Goal OARS. Due on due Goal Height. Due on d ue Goal UDT. Due on due Goal Review Allergy List. Due on due Goal Tobacco Use. Due on due Goal ALT (SGPT). Due on due Goal Order Annual PT. Due on due Goal Medication Recon ciliation. Due on due Goal Update Social Hi story. Due on due Goal Height. Due on d ue Goal Update Social Hi story. Due on due Goal ALT (SGPT). Due on due Goal AST (SGOT). Due on due Goal ENERGY ASSISTANT Paperwork. Due on due Goal Order Annual PT. Due on due Goal PHQ-9. Due on du e Goal OARS. Due on due Goal Weight. Due on d ue Goal Review Allergy List. Due on due Goal Medication Recon ciliation. Due on due Goal Tobacco Use. Due on due Goal UDT. Due on due Goal GRADE AND CENTER MARKER Scanned. Due on due Referral Ordered: Nell Castellon MD [facility] : Family Medicine (related to Postlaminectomy syndrome, not elsewhere classified) ordered Referral Ordered: Nell Castellon MD [facility] : Family Medicine (related to Other intervertebral disc degeneration, lumbar region) ordered Referral Ordered: [facility] : Family Medicine (related to Postlaminectomy syndrome, not elsewhere classified) ordered Referral Ordered: Nell Castellon MD -[facility] : Family Medicine (related to Other intervertebral disc degeneration, lumbar region) ordered Referral Referred To: Nell Castellon MD [facility]
[id number] [place], [address] [phone] Ordered: Referrals: [facility] : Family Medicine. Nell Castellon MD ordered Referral Ordered: [facility] : Family Medicine (related to Other intervertebral disc degeneration, lumbar region) ordered Referral Referred To: Nell Castellon [facility]
[address] [place], [address] [phone] Ordered: Referrals: [facility] : Family Medicine. Nell Castellon ordered Referral Ordered: [facility] (related to Other intervertebral disc degeneration, lumbar region) ordered Referral Referred To: [facility] [place], [address] [phone] Ordered: Referrals: [facility]. Consult ordered Referral Ordered: MRI THORACIC SPINE W/O DYE ordered Appointment Delmy Coffey BOOKED Appointment Delmy Coffey BOOKED Future Order: Lab Order C-Reacti ve Protein, Cardiac ([id number]), Sent on: Sent Future Order: Lab Order Vitamin D, 25-Hydroxy ([id number]), Sent on: Sent Future Order: Lab Order PTH, Int act ([id number]), Sent on: Sent Future Order: Lab Order Comp. Me tabolic Panel (14) ([id number]), Sent on: Sent Future Order: Lab Order Comp. Me tabolic Panel (14) ([id number]), Sent on: Sent Future Order: Lab Order C-Reacti ve Protein, Cardiac ([id number]), Sent on: Sent Future Order: Lab Order Vitamin D, 25-Hydroxy ([id number]), Sent on: Sent Future Order: Lab Order PTH, Int act ([id number]), Sent on: Sent Future Order: Lab Order COMPLIAN CE DRUG ANALYSIS, URINE, WITH MED REPORT ([id number]), Ordered on: Ordered Future Order: Lab Order Drug Delphine t Def 22+ Classes ([id number]), Ordered on: Ordered Future Order: Lab Order COMPLINOCENCIA CE DRUG ANALYSIS, URINE, WITH MED REPORT ([id number]), Ordered on: Ordered Future Order: Lab Order ALT (SGP T),SERUM ([id number]), Ordered on: Ordered Future Order: Lab Order AST (SGO T),SERUM ([id number]), Ordered on: Ordered Future Order: Lab Order CREATINI NE,SERUM ([id number]), Ordered on: Ordered History Of Present Illness Encounter Date Complaint History Of Prese nt Illness Back Pain Duration: chroni c. Comments: Helder alanis presents today in person for a f/u visit for the ongoing management of neck pain with radiation into the L shoulder and L arm, mid back pain with radiation across the bra line and into the BL sides, and low back pain. Pain has been worse since [place] with her most bothersome pain being L sided neck pain with radiation to her left occipital region; Also having right sided UE , she denies experiencing weakness and numbness in the UE. She also continues to experience R upper abdominal quadrant pain, without radiation into the spine (previous this pain was radiating); Had Thoracic spine surgery scheduled d/t the radiating pain but now that pain no longer radiating into the spine , thoracic spine surgery likely to be canceled . She would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 managed with OTC meds.No other concerns today. Back Pain Duration: chroni c. The problem is worsening. It occurs persistently. Location of pain is middle back, lower back and right leg.The patient describes the pain as an ache. Symptoms are aggravated by ascending stairs, bending, descending stairs, lifting, lying/rest, running, sitting, standing, twisting, walking and prolonged positioning. Symptoms are relieved by ice, lying down, pain meds/drugs, rest and TENS. Back Pain (comments) Delmy is here today for a followup and medication refill for back pain. Pain today is 8/10. Describes recent worsening of RLE tingling/numbness. It now encompasses the dorsum of all 5 toes. Currently working on SCS requirements. Reports headache after starting high dose vitamin D.Current medication regimen provides 70% relief and improves daily function. Denies side effects from current medication regimen. Patient is not accompanied today and has no further questions or other concerns. Back Pain Severity level i s incapacitating. Duration: chronic. The problem is worsening. It occurs persistently. Location of pain is middle back and lower back. Pain is radiated to the right calf and right foot.The patient describes the pain as an ache and sharp. Symptoms are aggravated by bending, changing positions, daily activities, lifting, lying/rest, running, sitting, standing, twisting, walking and housework. Symptoms are relieved by ice, lying down, massage, movement, pain meds/drugs, rest and TENS. Back Pain Severity level i s 5. Duration: chronic. The problem is worsening. It occurs persistently. Location of pain is middle back and lower back.The patient describes the pain as an ache and sharp. Symptoms are aggravated by ascending stairs, bending, descending stairs, lifting, twisting, walking and prolonged positioning. Symptoms are relieved by lying down, over the counter medication, pain meds/drugs, rest and changing positions. Back Pain (comments) Patient is here for a f/u. Patient is on track with prescribed medications. Medications are effective at relieving pain without SE. Reports 70% pain relief from current medication regimen.Delmy has been very busy over the last month. She has noticed any changes in her low back pain, but has been getting more flares with the changes in weather. She has been struggling with a headache over the last week but is getting good relief from Tylenol. She continues to supplement vitamin D3 into her diet. She has been drinking more liquids and states she has felt more thirsty. She would like a refill on the oxycodone. No other concerns to address. Back Pain (comments) Patient is here for a f/u. Patient is on track with prescribed medications. Medications are effective at relieving pain without SE. Reports 70% pain relief from current medication regimen. Delmy's pain has been stable since last visit.Delmy c/o worse lower back pain, believes it is d/t weather changes and her son getting bigger and harder to carry. She has been doing PT to help with gait and strength to support her baby. She continues to supplement vitamin D3 into her diet. She would be willing to get her PTH and inflammatory markers checked at an outside lab. No other concerns to address. Back Pain Severity level i s 4. Duration: chronic. The problem is stable. It occurs persistently. Location of pain is middle back and lower back.The patient describes the pain as an ache and sharp. Symptoms are aggravated by ascending stairs, bending, descending stairs, lifting, twisting, walking and prolonged positioning. Symptoms are relieved by lying down, over the counter medication, pain meds/drugs, rest and changing positions. Back Pain (comments) Patient is here for a f/u. Has #46 oxycodone remaining - on track. Medications are effective at relieving pain without SE. Reports 70% pain relief from current medication regimen. Delmy's pain has been stable since last visit.Delmy plans on starting PT at [facility] on the 16 of March. She is hoping to more relief and ROM in her low back. She ordered the liquid B complex on [employer], has not noticed much of a difference yet. She takes an over the counter vitamin D, will aim for 10,000 IU. She would like a refill on the oxycodone. No other concerns to address. Back Pain Severity level i s 5. Duration: chronic. The problem is stable. It occurs persistently. Location of pain is lower back.The patient describes the pain as an ache and sharp. Symptoms are aggravated by ascending stairs, bending, descending stairs, standing, twisting, walking and prolonged positioning. Symptoms are relieved by lying down, over the counter medication, pain meds/drugs, rest and changing positions. Back Pain (comments) Patient is here for a f/u. Has #11 oxycodone remaining - on track. Medications are effective at relieving pain without SE. Reports 70% pain relief from current medication regimen. Delmy'mary pain has been stable since last visit. Delmy has been waiting for her PT to be scheduled. She has already performed the imaging on her back and the psychology evaluation. Once she has completed the PT she will be ready to move forward with the SCS trial. She would like a refill on the oxycodone. No other concerns to address. Back Pain Severity level i s 5. Duration: chronic. The problem is stable. It occurs persistently. Location of pain is lower back.The patient describes the pain as an ache and sharp. Symptoms are aggravated by ascending stairs, bending, descending stairs, lifting, standing, twisting, walking and prolonged positioning. Symptoms are relieved by lying down, over the counter medication, pain meds/drugs, rest and changing positions. Back Pain Severity level i s 4-5. Duration: chronic. The problem is fluctuating. It occurs persistently. Location of pain is lower back. Pain is radiated to the right calf.The patient describes the pain as an ache and sharp. Symptoms are aggravated by ascending stairs, bending, descending stairs, lifting, lying/rest, running, sitting, standing, twisting, walking, housework, movement and prolonged positioning. Symptoms are relieved by ice, lying down, pain meds/drugs, rest, changing positions and TENS. Back Pain (comments) Patient is here for follow up and medications refill for ongoing back pain. States her pain has been fluctuating since last OV. Remains interested in pursuing the SCS trial. Patient presents with #20 Oxycodone - on track. Reports current medication regimen provides 60-70% pain relief. Denies side effects from current medication regimen. Medications continue to provide pain relief and allow her to do everyday tasks, such as housework and taking care of her children. She is aware that the goal would be to start tapering her opioid medication prior to a SCS trial. No other concerns today. Back Pain Severity level i s 4. Duration: chronic. The problem is fluctuating. It occurs persistently. Location of pain is lower back. Pain is radiated to the right calf.The patient describes the pain as an ache and sharp. Symptoms are aggravated by ascending stairs, bending, descending stairs, lifting, lying/rest, running, sitting, standing, twisting, walking, housework, movement and prolonged positioning. Symptoms are relieved by ice, lying down, pain meds/drugs, rest, changing positions and TENS. Back Pain (comments) Patient ret urns to the clinic today to re-establish care, last seen at [facility] since 05/2018. Had transferred her care to [facility] to manage her opioid medication during her . She is present here today with , Tej, who contributes to the discussion of the patient's care. States that she would like to resume her care at [facility] and would like to pursue a SCS trial as previously planned/discussed. Reports previous history with injections with limited benefit, most recently with SI joint injections with no relief. Current medication regimen is Oxycodone 10mg MAX 7/day which she finds helpful, however she states that her goal is to taper her opioid medication. She is aware that the goal would be to start tapering her opioid medication prior to a SCS trial. She denies SE from her current medication regimen. Does confirm that she is not her son and is not planning any future pregnancies. No other concerns today. Back Pain Severity level i s 4. Duration: chronic. The problem is fluctuating. Location of pain is lower back. Pain is radiated to the right calf.The patient describes the pain as an ache and sharp. Symptoms are aggravated by ascending stairs, bending, descending stairs, lifting, lying/rest, running, sitting, standing, twisting, walking, housework, movement and prolonged positioning. Symptoms are relieved by ice, lying down, pain meds/drugs, rest, changing positions and TENS. Back Pain (comments) Delmy is here for follow up and medications refill. Pain is fluctuating. The patient recently found out she is 8 weeks . This is an unplanned and the patient is very emotional. She is asking advice about opioids and pregnancyPresents with #3 oxycodone 15mg and #30 oxycodone 10mg - on track. Reports current medication regimen provides a moderate amount of the pain relief. Denies side effects from current medication regimen. Prescribed medications continue to be helpful for pain relief. Back Pain (comments) Delmy is here for a followup and medication refill. She presents with #20 Oxycodone 10mg and #10 Oxycodone 15mg- on track. Medications provide 70% relief from pain. C/o new nerve pain in her L ankle, feels like the same pain in her RLE. She is decreasing her medication by 5mg every month to help with pain during SCS trial/implant. Reports having a psych eval appt on 04/06 to move forward with SCS trial. She complete PT until July 2017, states signing ARYA last OV for the PT records to be sent to [facility]. She has not made a decision on which brand she would like to pursue for SCS trial, however is leaning towards [employer] d/t MRI compatability. Back Pain Severity level i s 4-5. Duration: chronic. The problem is worsening. It occurs persistently. Location of pain is lower back. Pain is radiated to the left ankle and right calf.The patient describes the pain as an ache, burning and sharp. Symptoms are aggravated by ascending stairs, bending, descending stairs, lifting, running, sitting, standing, twisting, walking, housework, movement and prolonged positioning. Symptoms are relieved by ice, lying down, pain meds/drugs, rest, TENS and changing positions. Back Pain (comments) Delmy is here for follow up and medications refill. Presents with #17 oxycodone 15mg (on track) and #23 oxycodone 10mg (small surplus). Reports current medication regimen provides 70% pain relief. Denies side effects from current medication regimen. Pain is fluctuating. Prescribed medications continue to be helpful for pain relief. Inquires about timeframe for SCS. Needs FLMA paper completed, will fax to [facility].Of note, patient is getting in 9 days. Inquires about added medication for flight for [employer]. Back Pain Severity level i s 4. Duration: chronic. The problem is fluctuating. It occurs persistently. Location of pain is middle back and lower back. Pain is radiated to the right ankle, right calf and right foot.The patient describes the pain as an ache, burning, sharp and tingling. Symptoms are aggravated by ascending stairs, bending, descending stairs, lifting, lying/rest, running, sitting, standing, twisting, walking, housework, movement and prolonged positioning. Symptoms are relieved by ice, lying down, massage, pain meds/drugs, rest, changing positions and TENS. Back Pain Severity level i s . Duration: chronic. The problem is worsening. It occurs persistently. Location of pain is lower back. Pain is radiated to the right lower leg.The patient describes the pain as an ache, sharp and tingling. Symptoms are aggravated by bending, daily activities, standing, twisting, walking and prolonged positioning. Symptoms are relieved by ice, lying down, pain meds/drugs, rest and TENS. Back Pain (comments) Delmy is here for follow up and medications refill. Presents with #8 oxycodone 5mg, #9 oxycodone 10mg, and #9 oxycodone 15mg - on track. Reports current medication regimen provides 60% pain relief. Denies side effects from current medication regimen. Pain is worse with increased demands of her job and keeping up with her 5 children, as well as planning for her wedding next month. Patient called triage for sever pain increase and another provider sent in medrol dose pack. Back Pain (comments) Patient is here for follow up and medications refill. Presents with #43 Oxycodone - on track. Reports current medication regimen provides 70% pain relief. Denies side effects from current medication regimen. States her pain has been fluctuating since last OV. Medications continue to provide pain relief and allow for increased functioning. Patient is in agreement of a medications taper. She had recently completed surgery on her right upper back to remove a 4-inch mass, pathology report is still pending. She was prescribed #20 Oxycodone 5mg for post procedural pain. Remains interested in pursuing the SCS trial but would like to hold off until after her wedding. No other concerns today. Back Pain Severity level i s 5-6. Duration: chronic. The problem is fluctuating. It occurs persistently. Location of pain is lower back and right jeronimo.The patient describes the pain as an ache, burning and sharp. Symptoms are aggravated by ascending stairs, bending, descending stairs, lifting, lying/rest, running, sitting, standing, twisting, walking, prolonged positioning, housework and movement. Symptoms are relieved by ice, lying down, pain meds/drugs, rest and changing positions. Back Pain (comments) Delmy is here for follow up and medications refill. Presents with #26 oxycodone 15mg - on track. Reports current medication regimen provides 70% pain relief. Denies side effects from current medication regimen. Pain is fluctuating, although it has been mildly aggravated increased d/t weather changes. Prescribed medications continue to be helpful for pain relief. States that she is very frustrated with insurance and coverage/high deductible. Unsure if she wants to pursue the SCS trial right away under her insurance, or if she should wait 5 months to get on her fiance's plan. Recently started a new full-time administrative job. Back Pain Severity level i s 4-5. Duration: chronic. The problem is fluctuating. It occurs persistently. Location of pain is lower back and RLE.There is no radiation of pain. The patient describes the pain as an ache, sharp and tingling. Symptoms are aggravated by ascending stairs, bending, descending stairs, lifting, lying/rest, sitting, standing, twisting, walking and prolonged positioning. Symptoms are relieved by heat, ice, massage, pain meds/drugs, stretching and rest. Back Pain (comments) Delmy is here today for f/u and medication refill. She has #67 oxycodone, on track. The patient reports functional improvement with daily activities and 70% relief of pain with medication. Patient did state she does not like the way she feels on her opiate medication.Patient continues to desire a SCS trial, however her plan has been delayed d/t injury and getting in the next couple months. She plans to pursue the SCS trial in September. Patient has continued PT, acupuncture, and massage therapy to return to her baseline pain. 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 The job is 8 hours/day as opposed to 4 hours/day with her previous job. Back Pain Severity level i s 4. Duration: chronic. The problem is fluctuating. It occurs persistently. Location of pain is lower back and left anterior lower leg.The patient describes the pain as an ache and sharp. Symptoms are aggravated by ascending stairs, bending, daily activities, descending stairs, lifting, lying/rest, running, sitting, standing, twisting, walking and prolonged positioning. Symptoms are relieved by ice, lying down, pain meds/drugs and rest. low back pain (comments) Delmy is here for follow up and medication refill. She has #25 Oxycodone remaining, which only leaves 1 left for today. She reports 70% pain relief from the medication, allowing her to be more active and continue working. However, her work hours are restricted. She had a work injury in March that has caused her to be on a very specific and aggresive therapy regimen. Pain has been worse due to regimen of physical therapy 3x/wk, accupuncture 2x/wk, massage therapy 2x/wk. She saw her PCP last week, who recommended possible steroid injec tions. She has an evaluation with WC physician later this week.Opioid-induced constipation is managed with Senna; she sometimes forgets to take it, but tries to take it everyday.She is still interested in pursuing [facility] SCS trial. She is looking forward to her wedding and honeymoon later this year, and is hopeful her pain will be better under control at that time. low back pain Severity level i s 5-6. Duration: chronic. The problem is fluctuating. It occurs persistently. Location of pain is lower back.The patient describes the pain as an ache and sharp. Symptoms are aggravated by ascending stairs, bending, descending stairs, lifting, sitting, standing, twisting, walking, housework, lying down and prolonged positioning. Symptoms are relieved by massage, pain meds/drugs, physical therapy, rest and acupuncture. low back pain Severity level i s 5-7. Duration: chronic. The problem is worsening. It occurs persistently. Location of pain is lower back. Pain is radiated to the left posterior thigh.The patient describes the pain as an ache, burning and sharp. Symptoms are aggravated by ascending stairs, bending, descending stairs, lifting, sitting, standing, twisting, walking, housework, lying down and prolonged positioning. Symptoms are relieved by pain meds/drugs, rest and changing positions. low back pain (comments) Delmy is here for follow up and medication refill. She has #53 Oxycodone remaining, which is on track. She reports 70% pain relief from the medication, allowing her to . Psych eval completed. Waiting on approval for the SCS trial.New work comp injury on 02/07/17. Worse pain after moving an obese patient on 02/07/17. with new left posterior buttock to knee leg pain. Gradually improving. Start PT tomorrow. Work restrictions 4 hours/day. low back pain (comments) Patient is here for follow-up and medication refills. Patient did not bring in medications today. Reports at least 75% relief from the medication. Patient has had a flare of pain. Scheduled Psych eval for SCS trial on the 02/24. low back pain Severity level i s 10. Duration: chronic. The problem is worsening. It occurs persistently. Location of pain is lower back. Pain is radiated to the right calf and right foot.The patient describes the pain as an ache, burning, sharp and tingling. Symptoms are aggravated by bending, lifting, sitting, standing, twisting, walking and stairs. Symptoms are relieved by lying down. low back pain (comments) Patient is here for follow-up and medication refills. Patient has #17 Oxycodone remaining today - 1 tablet left for today. Reports at least 70% relief from the medication. Patient is taking 2 Oxycodone at a time, feels as though pain is getting worse. Patient was approved for an FMLA, missed work around 4 times in the last 3 months. Patient is currently taking antibiotics for an allergic reaction to a botox trial. Delmy will see Dr. Arredondo on 02/24 for psych evaluation. Patient is interested in scheduling her SCS trial before her PT expires so she may see a different psychiatrist for the evaluation before 02/24. Patient will be moving to [place] and will most likely be changing jobs. low back pain Severity level i s 6-9. Duration: chronic. The problem is worsening. It occurs persistently. Location of pain is middle back, lower back and right lower extremity below knee.The patient describes the pain as an ache, burning, sharp and tingling. Symptoms are aggravated by ascending stairs, bending, descending stairs, lifting, sitting, standing, twisting, walking, housework and prolonged positioning. Symptoms are relieved by ice, lying down, pain meds/drugs and rest. low back pain Severity level i s 4-10. Duration: chronic. The problem is fluctuating. It occurs persistently. Location of pain is lower back. Pain is radiated to the right anterior lower leg.The patient describes the pain as an ache, burning, localized and tingling. Symptoms are aggravated by bending, lifting, lying/rest, sitting, standing, twisting, walking, housework, prolonged positions and stairs. Symptoms are relieved by ice, lying down, pain meds/drugs and Biofreeze. low back pain Severity level i s 6. Duration: chronic. The problem is worsening. It occurs persistently. Location of pain is lower back.There is no radiation of pain. The patient describes the pain as an ache, sharp and tingling. Symptoms are aggravated by bending, lifting, running, sitting, standing, twisting, walking, housework,movement andstairs. Symptoms are relieved by lying down, pain meds/drugs and rest. low back pain (comments) Delmy is here for f/u and medication refill. Presents with #20 Oxycodone-on track. Medication provides 70% pain relief. Pt reports she spoke with a pharmacist about medical cannibis but is concerned about her heart and the effect of the cannibis on it. She will be talking to her heart doctor next month as well. Pt reports she knows someone who has seen great results from the SCS and is interested in a SCS trial low back pain Severity level i s 7. Duration: chronic. The problem is worsening. It occurs persistently. Location of pain is lower back. Pain is radiated to the right calf.The patient describes the pain as an ache and sharp. Symptoms are aggravated by daily activities. Symptoms are relieved by ice, lying down, pain meds/drugs and rest. low back pain (comments) Patient is here for re-evaluation after medial branch block on 06/07/16 and reports it was not beneficial. Patient has #90 oxycodone remaining today - on track. Reports the medication is beneficial but is exhausting to be on-having to take pills, deal with SE, etc. She inquires about medical cannabis and is interested in discussing this further with someone. She also inquires about a SCS. She says she has a friend who has one and loves it.Asks about an FMLA. low back pain (comments) Delmy is here for a followup and medication refill. She has #56 oxcodone- does not allow for any medication for the rest of the day. Delmy's data control assistant had increased heart medication at similar time of Topamax given and she had SE; such as dizzyness and headaches. The data control assistant requested she stop Topamax to insure it is not causing SE. She reports pain is getting worse. She is interested in completing an RF on the levels of the fusion or alternative options for pain relief as to avoid another surgery if possible. low back pain Severity level i s 9-10. Duration: chronic. Location of pain is lower back. Pain is radiated to the right ankle, right calf and right foot.The patient describes the pain as an ache, burning, sharp and tingling. Symptoms are aggravated by bending, changing positions, lifting, lying/rest, running, sitting, standing, twisting, walking and stairs. Symptoms are relieved by ice, lying down, pain meds/drugs and rest. low back pain Severity level i s severe. Duration: chronic. The problem is worsening. It occurs persistently. Location of pain is lower back. Pain is radiated to the right calf.The patient describes the pain as an ache, burning, sharp and tingling. Symptoms are aggravated by bending, lifting, sitting, standing, twisting, walking and movement. Symptoms are relieved by ice, lying down and pain meds/drugs. low back pain (comments) Patient is here for follow-up and medication refills. Patient has #21 oxycodone remaining today - on track. Reports at least 60% relief from the medication. Her back pain has been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
--- NOTE | 2023-09-22 16:00 | CT_ITS ---
Patient: RESHMA DELEON Facility:?[facility] Patient ID:?[id number] Site Patient ID:?[id number]. Site :?[id number] Study:?CT-ST Neck w/ 106cc [id number]/20/2024 3:28:54 PM Ordering Physician:?Mahesh Dominguez Final Report: INDICATION: Lump in throat. TECHNIQUE: CT of the neck soft tissues performed with IV contrast. Contrast: 106 cc Isovue 370 COMPARISON: None available at this institution. FINDINGS: The nasopharynx, oropharynx and hypopharynx appear unremarkable. The supraglottic, glottic and infraglottic spaces are preserved. The parotid and submandibular glands appear unremarkable. Subcentimeter thyroid nodules No lymphadenopathy identified. The visualized major vascular structures appear intact. The visualized intracranial components appear grossly intact. Visualized orbits and contents appear unremarkable. The paranasal sinuses are clear as visualized. Lung apices are clear. Mild cervical spondylosis. IMPRESSION: No evident mass or lymphadenopathy within the neck. Please note that all CT scans at this facility use dose modulation, iterative reconstruction, and/or weight-based dosing when appropriate to reduce radiation dose to as low as reasonably achievable. Dictated by Marlon Meyers MD @ 09/23/2023 2:19:09 PM Signed by:?Marlon Meyers MD @09/23/2023 2:19:09 PM (Electronic Signature)
== END 2023-09-22 15:00 | disposition home or self-care (01) ==
LOC: US 15:01
PROVIDERS: PCP Internal Medicine; Visit Provider Otolaryngology
DX: E04.1 Nontoxic single thyroid nodule (principal); R22.1 Localized swelling, mass and lump, neck
CPT/HCPCS: 70491; 76536; Q9967

== ENCOUNTER 2024-01-01 16:12 | Outpatient (CLI) | payer OTHER, SELFPAY | END 2024-01-01 16:13 | disposition home or self-care (01) | LOC: FRMREF 16:14 | PROVIDERS: PCP Internal Medicine; Visit Provider Registered Nurse | DX: R35.0 Frequency of micturition (principal) | CPT/HCPCS: 87086 ==

== ENCOUNTER 2024-04-08 14:49 | Outpatient (CLI) | payer OTHER, SELFPAY ==
[2024-04-08 22:18] LABS: Strep A DNA Probe* NOT DETECTED (Not Detectd)
[2024-04-08 22:32] LABS: SARS PCR* Negative SARS-CoV-2 (Negative)
== END 2024-04-08 14:50 | disposition home or self-care (01) ==
PROVIDERS: PCP Internal Medicine; Visit Provider Nurse Practitioner Family
DX: J02.9 Acute pharyngitis, unspecified (principal); J06.9 Acute upper respiratory infection, unspecified
CPT/HCPCS: 87635; 87651

== ENCOUNTER 2024-05-14 13:42 | Outpatient (CLI) | payer OTHER, SELFPAY | END 2024-05-14 13:43 | disposition home or self-care (01) | LOC: NFLDREF 05-23 16:45 | PROVIDERS: PCP Internal Medicine; Referring Provider Internal Medicine; Visit Provider Nurse Practitioner Family | DX: R19.7 Diarrhea, unspecified (principal) | CPT/HCPCS: 87045; 87046; 87177; 87209; 87427; 87493; 87798 ==

== ENCOUNTER 2024-10-01 09:58 | Outpatient (CLI) | payer OTHER, SELFPAY ==
[2024-10-01 12:04] LABS: Bacterial Vaginosis* Negative (Negative); Candida glab/krus NOT DETECTED (No Detected); Candida species NOT DETECTED (No Detected); Trichomonas vaginalis NOT DETECTED (No Detected)
== END 2024-10-01 09:59 | disposition home or self-care (01) ==
LOC: NFLDREF 09:59
PROVIDERS: PCP Internal Medicine; Visit Provider Advanced Practice Midwife
DX: N89.8 Other specified noninflammatory disorders of vagina (principal); R82.90 Unspecified abnormal findings in urine
CPT/HCPCS: 81513; 87086; 87481; 87661

== ENCOUNTER 2024-12-28 09:16 | Outpatient (CLI) | payer OTHER, SELFPAY | END 2024-12-28 09:17 | disposition home or self-care (01) | LOC: NFLDREF 12-30 14:46 | PROVIDERS: PCP Internal Medicine; Referring Provider Internal Medicine; Visit Provider Internal Medicine | DX: M81.0 Age-related osteoporosis without current pathological fracture (principal); Z13.6 Encounter for screening for cardiovascular disorders | CPT/HCPCS: 80053; 80061; 82306 ==

== ENCOUNTER 2024-12-30 10:17 | Outpatient (CLI) | payer OTHER, SELFPAY | END 2024-12-30 10:18 | disposition home or self-care (01) | PROVIDERS: PCP Internal Medicine; Visit Provider Internal Medicine | DX: R25.1 Tremor, unspecified (principal); E66.9 Obesity, unspecified; F41.9 Anxiety disorder, unspecified | CPT/HCPCS: 82607; 84443 ==

== ENCOUNTER 2025-03-24 10:02 | Outpatient (CLI) | payer OTHER, SELFPAY | END 2025-03-24 10:03 | disposition home or self-care (01) | PROVIDERS: PCP Internal Medicine; Visit Provider Family Medicine | DX: N92.0 Excessive and frequent menstruation with regular cycle (principal) | CPT/HCPCS: 82728; 85025 ==

== ENCOUNTER 2025-05-02 12:59 | Outpatient (CLI) | payer OTHER, SELFPAY ==
--- NOTE | 2025-05-02 13:20 | CRLHL7_ITS ---
For Patients: As a result of the Century Cures Act, medical imaging exams and procedure reports are released immediately into your electronic medical record. You may view this report before your referring provider. If you have questions, please contact your health care provider. INDICATION: BILATERAL SCREENING MAMMOGRAM, ASYMPTOMATIC 44 Y/O FEMALE COMPARISON: 02/26/2022, 01/31/2021 TECHNIQUE: Digital mammogram in CC and MLO projections including computer-aided detection (CAD) and tomosynthesis. BREAST COMPOSITION: There are scattered areas of fibroglandular density. FINDINGS: No suspicious findings. ASSESSMENT: BI-RADS 1 Negative RECOMMENDATION: Annual screening mammogram. A lay language report of this examination will be provided to the patient. Dictated by: Oscar Schuler MD @ 05/03/2025 08:33:43 (Electronically Signed)
== END 2025-05-02 13:00 | disposition home or self-care (01) ==
LOC: MAMMO 13:00
PROVIDERS: PCP Internal Medicine; Visit Provider Internal Medicine
DX: Z12.31 Encounter for screening mammogram for malignant neoplasm of breast (principal)
CPT/HCPCS: 77063; 77067